=== PATIENT | male | born 1945 | race Caucasian/White ===

== ENCOUNTER → 2020-09-01 11:26 | Outpatient (BNVA) | payer MEDICARE, OTHER, SELFPAY | PROVIDERS: PCP Internal Medicine; Referring Provider Internal Medicine; Visit Provider Nurse Practitioner Family | DX: I48.0 Paroxysmal atrial fibrillation (principal); I13.0 Hypertensive heart and chronic kidney disease with heart failure and stage 1 through stage 4 chronic kidney disease, or unspecified chronic kidney disease; I50.40 Unspecified combined systolic (congestive) and diastolic (congestive) heart failure; N18.9 Chronic kidney disease, unspecified; I49.3 Ventricular premature depolarization; I42.9 Cardiomyopathy, unspecified; J44.9 Chronic obstructive pulmonary disease, unspecified; G89.29 Other chronic pain; M54.9 Dorsalgia, unspecified; Z95.810 Presence of automatic (implantable) cardiac defibrillator; Z79.01 Long term (current) use of anticoagulants; Z79.899 Other long term (current) drug therapy | CPT/HCPCS: 99214 ==

== ENCOUNTER 2020-10-18 09:38 | Outpatient (REF) | payer MEDICARE, OTHER, SELFPAY ==
--- NOTE | 2020-10-18 10:09 | US_ITS ---
EXAMINATION: US ABDOMEN LIMITED CLINICAL INFORMATION: Paroxysmal atrial fibrillation. On amiodarone. COMPARISON: CTA chest 04/27/2019, 10/19/2017. TECHNIQUE: Real-time imaging of the right upper quadrant abdominal viscera. FINDINGS: PANCREAS: The visualized pancreas is normal in size and contour and echogenicity. Portions of the pancreatic head and tail are obscured by bowel gas and not completely imaged. There is no pancreatic ductal distention or retroperitoneal effusion. LIVER: The liver is normal in overall size. The liver contour shows macrolobulation similar to the CT study. There is mild uniform coarsening of the hepatic echotexture. There is a solitary hypoechoic circumscribed nodule left lobe 1.3 cm without associated color flow. Finding not seen with certainty on CT. There is no intrahepatic ductal dilatation. GALLBLADDER: Normal. The gallbladder is physiologically distended without evidence of stones, sludge, polyps, wall thickening or pericholecystic fluid. COMMON BILE DUCT: Mildly enlarged, measuring 1.0 cm in diameter. No visible ductal calculus or wall thickening. RIGHT KIDNEY: Right kidney measures 12.0 cm in length. There is normal renal parenchymal thickness and echogenicity. No hydronephrosis or visible calculi. There is a large simple exophytic cyst from the lower pole measuring 6.8 x 3.7 x 6.1 cm. This is beyond field of view on prior CT studies. There is also a small simple cyst interpolar region measuring under 2 cm. FREE FLUID: None. US/US abdomen limited IMPRESSION: 1. Macrolobulated contour liver with solitary circumscribed hypoechoic nodule left lobe 1.3 cm. 2. Mild common duct enlargement, 1.0 cm. No intrahepatic ductal dilatation. Unremarkable gallbladder. 3. Visualized pancreas unremarkable. Portions head and tail obscured by bowel gas. 4. Large exophytic cyst lower pole right kidney 6.8 x 3.7 x 6.1 cm. Smaller cyst interpolar under 2 cm.
[2020-10-18 11:17] LABS: TSH reflex Free T4 0.31 mIU/mL (0.32-4.0)
[2020-10-18 11:18] LABS: Alanine Aminotransferase 30 U/L (0-40); Anion Gap 14 (12-20); Aspartate Amino Transferase 39 U/L (5-37); Blood Urea Nitrogen 24 mg/dL (9-16); Calcium 8.9 mg/dL (8.4-10.2); Carbon Dioxide 26 mmol/L (22-29); Chloride 105 mmol/L (96-108); Cholesterol 93 mg/dL; Estimated Glomerular Filt Rate 43; Glucose Random 110 mg/dL (60-115); HDL Cholesterol 29 mg/dL; LDL Cholesterol Calculated 40 mg/dl; Potassium 4.3 mmol/l (3.3-5.1); Sodium 141 mmol/L (135-145); Triglycerides 121 mg/dL
[2020-10-18 11:48] LABS: Free T4 (Free Thyroxine) 1.33 ng/dL (0.71-1.85)
== END 2020-10-18 09:39 | disposition home or self-care (01) ==
LOC: HO.US 09:38
PROVIDERS: PCP Internal Medicine; Visit Provider Nurse Practitioner Family
DX: I48.0 Paroxysmal atrial fibrillation (principal); I12.9 Hypertensive chronic kidney disease with stage 1 through stage 4 chronic kidney disease, or unspecified chronic kidney disease; N18.9 Chronic kidney disease, unspecified; E78.5 Hyperlipidemia, unspecified
CPT/HCPCS: 76705; 80048; 80061; 84439; 84443; 84450; 84460

== ENCOUNTER → 2020-11-10 10:25 | Outpatient (BNVA) | payer MEDICARE, OTHER, SELFPAY | PROVIDERS: PCP Internal Medicine; Visit Provider Internal Medicine | DX: I50.42 Chronic combined systolic (congestive) and diastolic (congestive) heart failure (principal); I11.0 Hypertensive heart disease with heart failure; I25.5 Ischemic cardiomyopathy; I49.3 Ventricular premature depolarization; I48.0 Paroxysmal atrial fibrillation; I25.10 Atherosclerotic heart disease of native coronary artery without angina pectoris; I27.82 Chronic pulmonary embolism; E78.5 Hyperlipidemia, unspecified; Z79.899 Other long term (current) drug therapy; Z98.890 Other specified postprocedural states; Z95.818 Presence of other cardiac implants and grafts | CPT/HCPCS: 93005; 99212 ==

== ENCOUNTER 2020-11-20 03:18 | Inpatient (IN) | payer MEDICARE, OTHER, SELFPAY ==
[2020-11-20] VITALS (22 sets, daily range): BP systolic 100–156; BP diastolic 52–91; PULSE 79–91; RESP 12–18; TEMP 36.3–37.1; O2SAT 95–100; BMI 30.9
--- NOTE | 2020-11-20 03:22 | XR_ITS ---
EXAMINATION: CHEST 1 VIEW CLINICAL INFORMATION: Shortness of breath. COMPARISON: 08/10/2020. TECHNIQUE: An AP view of the chest is provided. FINDINGS: The cardiac silhouette is stable. Pacer leads are in unchanged position. Again identified is diffuse interstitial disease bilaterally. There are neither pleural effusions nor pneumothoraces. There are no consolidations. The osseous structures are stable. XR/XR chest 1V IMPRESSION: No acute airspace disease. Stable chronic changes as stated above.
--- NOTE | 2020-11-20 03:22 | ECG_ITS ---
Test Reason : SOB Blood Pressure : / mmHG Vent. Rate : 080 BPM Atrial Rate : 080 BPM P-R Int : 088 ms QRS Dur : 144 ms QT Int : 432 ms P-R-T Axes : 000 237 051 degrees QTc Int : 498 ms AV dual-paced rhythm Abnormal ECG When compared with ECG of 29-NOV-2019 00:23, Premature ventricular complexes are no longer Present Referred By: Renee Nj Electronically Signed By:SERGIO SMALL MD
[2020-11-20 03:46] LABS: Basophils Percent Auto 0.1 % (0-2); Eosinophils Percent Auto 0.1 % (0-4); Hematocrit 37.2 % (42-52); Hemoglobin 11.3 g/dl (14.0-18.0); Imm Gran Abs Auto 0.06 X10*3/uL (0.00-0.03); Imm Gran Pct Auto 0.5 % (0.0-0.4); Lymphocytes Absolute Auto 2.6 X10*3/uL (1.2-4.9); Lymphocytes Percent Auto 20.3 % (20-40); MANUAL DIFF FLAG NO; Mean Corpuscular HGB Conc 30.4 g/dl (31.0-36.0); Mean Corpuscular Hemoglobin 26.5 pg (27.0-33.0); Mean Corpuscular Volume 87.3 fL (80-98); Mean Platelet Volume 10.7 fL (9.4-12.4); Monocytes Absolute Auto 1.1 X10*3/uL (0.1-1.2); Monocytes Percent Auto 8.4 % (2-11); Neutrophils Absolute Auto 8.9 X10*3/uL (2.0-8.3); Neutrophils Percent Auto 70.6 % (45-73); Platelet Count 177 X10*3/uL (160-400); Red Blood Count 4.26 X10*6/uL (4.60-5.80); Red Cell Distribution Width 15.9 % (11.0-16.0); White Blood Count 12.6 X10*3/uL (4.8-10.8)
[2020-11-20 03:56] LABS: INTERNATIONAL NORM RATIO 1.7 (0.9-1.1); Prothrombin Time 20.6 SEC (10.8-13.0)
[2020-11-20 04:13] LABS: Alanine Aminotransferase 79 U/L (0-40); Albumin Level 3.7 g/dL (3.5-5.0); Alkaline Phosphatase 86 U/L (39-117); Anion Gap 18 (12-20); Aspartate Amino Transferase 89 U/L (5-37); Bilirubin Total 0.8 mg/dL (0.0-1.0); Blood Urea Nitrogen 56 mg/dL (9-16); Calcium 7.8 mg/dL (8.4-10.2); Carbon Dioxide 25 mmol/L (22-29); Chloride 103 mmol/L (96-108); Creatinine Clr Calc Pharmacy 34.6; Estimated Glomerular Filt Rate 31; Glucose Random 232 mg/dL (60-115); Potassium 4.9 mmol/l (3.3-5.1); Sodium 141 mmol/L (135-145); Total Protein 6.8 g/dL (6.5-8.0)
[2020-11-20 04:14] LABS: B Type Natriuretic Peptide 2709 pg/mL (<100)
--- NOTE | 2020-11-20 05:10 | PC.NURSE ---
PATIENT BLOOD PRESSURE 107/52, NITRO PASTE REMOVED FROM CHEST AT THIS TIME. PATIENT DENIES CHEST PAIN OR DISCOMFORT. WILL CONTINUE TO MONITOR. MD IS AWARE OF REMOVAL OF NITRO PASTE THAT WAS PLACED WITH EMS BEFORE PATIENTS ARRIVAL TO HOSPITAL.
--- NOTE | 2020-11-20 05:15 | ED.SOB ---
HPI - SOB/Dyspnea General Chief Complaint: Dyspnea Stated Complaint: DIFF BREATHING, ON CPAP Time Seen by Provider: 11/20/20 03:22 Source: patient Mode of arrival: EMS History of Present Illness HPI Narrative: This is a 75-year-old male who has significant past medical history of COPD, CAD, CHF (mixed) who presents with onset of acute shortness of breath worsening over the past couple of days but it became prominent at approximately 11:00 p.m. last night without associated fevers, chills, but patient is having chest discomfort. Patient states that he does not typically get swelling in the lower legs but instead gets it in his abdomen but denies that it has changed in size or that his weight has increased. Patient states that he was just discharged from [facility] on 11/17 and states that he was discharged on an additional 3 days of steroids but denies any use of antibiotics. Patient states he has otherwise been taking his medications as prescribed, does not use any oxygen at home, and has been seen by Dr. Balbuena recently (11/10). Related Data Home Medications Medication Instructions Recorded Confirmed amiodarone 100 mg PO DAILY 11/20/20 11/20/20 apixaban [Eliquis] 5 mg PO BID 11/20/20 11/20/20 ascorbic acid (vitamin C) [Vitamin 1,000 mg PO DAILY 11/20/20 11/20/20 C] aspirin 81 mg PO DAILY 11/20/20 11/20/20 atorvastatin 40 mg PO BEDTIME 11/20/20 11/20/20 carvedilol 6.25 mg PO BID 11/20/20 11/20/20 ergocalciferol (vitamin D2) 2,000 unit PO DAILY 11/20/20 11/20/20 [Vitamin D2] gabapentin 600 mg PO BEDTIME 11/20/20 11/20/20 isosorbide mononitrate 30 mg PO DAILY 11/20/20 11/20/20 levothyroxine 25 mcg PO DAILY 11/20/20 11/20/20 magnesium 500 mg PO BID 11/20/20 11/20/20 sacubitril-valsartan [Entresto] 1 tab PO BID 11/20/20 11/20/20 torsemide 20 mg PO DAILY 11/20/20 11/20/20 Allergies Allergy/AdvReac Type Severity Reaction Status Date / Time bee pollen [BEE STINGS] Allergy Severe ANAPHYLAXIS Verified 11/10/20 10:38 Review of Systems Review of Systems: Pertinent positives and negatives as stated in HPI 10 point review of systems is otherwise negative. 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 Paroxysmal atrial fibrillation PVC (premature ventricular contraction) Surgical History H/O cardiac catheterization (~10/2017) History of ankle surgery History of cardiac pacemaker History of elbow surgery History of eye surgery History of surgery S/P mitral valve clip implantation Family History Family History Father Cancer Mother Cancer Brother Lymph node cancer Skin cancer Sister Diabetes Social History Social History Alcohol intake: never Smoking Status: Never smoker Cigarettes Per Day: 10 Smoked in Last 30 Days: No Use of substances other than those prescribed or required for medical reasons: No Advance Directives: No Advance Directives Information Provided: No Physical Exam Vital Signs: Vital Signs: Last Vital Signs Temp 98.2 F 11/20/20 07:31 Pulse 91 11/20/20 07:31 Resp 16 11/20/20 07:31 BP 131/62 11/20/20 07:31 Pulse Ox 100 11/20/20 07:31 Body Mass Index 30.9 VITAL SIGNS: Reviewed. GENERAL: Well developed, well nourished, in no acute distress. HEAD: Normocephalic/atraumatic, EYES: PERRLA, EOMI intact without pain, no nystagmus/pallor/icterus noted EARS: Ext canals without abnormality, TMs non-bulging and non-erythematous NOSE: Nares patent bilateral OROPHARYNX: posterior pharynx clear NECK: Supple, no adenopathy LUNGS: Normal breath sounds, no rales or wheeze, tachypnea+, SpO2<100> on BiPAP CARDIOVASCULAR: Paced rhythm, no JVD or lower extremity edema. ABDOMEN: Soft, non-tender, non-distended with bowel sounds. No rigidity. No guarding. No palpable masses or hernias noted MUSCULOSKELETAL: No tenderness, deformities, or effusions noted on gross inspection. EXTREMITIES: No cyanosis, clubbing SKIN: Inspection of the skin reveals no rashes, ulcerations NEUROLOGIC: Alert and oriented x 4. Course Course Course Narrative: This is a 75-year-old male with history and clinical presentation most consistent with CHF exacerbation and has improved significantly with BiPAP and placement of nitro paste but doubt primary cardiac ischemia in etiology or pneumonia. -labs, chest x-ray, EKG, COVID testing On review of all investigations despite no evidence pulmonary congestion on chest x-ray review of renal function and mild transaminemia as well as increase in BNP this is most consistent with CHF exacerbation. Patient is titrated off of the BiPAP and will be admitted to [facility]. This case was discussed with the inpatient hospitalist team who is agreeable for admission. Signed out to Dr Castrejon. MDM - SOB/Dyspnea Lab Data Result diagrams: 11/20/20 03:42 11/20/20 03:42 Labs: Lab Results 11/20/20 11/20/20 11/20/20 Range/Units 03:42 03:42 03:42 WBC 12.6 H (4.8-10.8) X10*3/uL RBC 4.26 L (4.60-5.80) X10*6/uL Hgb 11.3 L (14.0-18.0) g/dl Hct 37.2 L (42-52) % MCV 87.3 (80-98) fL MCH 26.5 L (27.0-33.0) pg MCHC 30.4 L (31.0-36.0) g/dl RDW 15.9 (11.0-16.0) % Plt Count 177 (160-400) X10*3/uL MPV 10.7 (9.4-12.4) fL Immature Gran % (Auto) 0.5 H (0.0-0.4) % Neut % (Auto) 70.6 (45-73) % Lymph % (Auto) 20.3 (20-40) % [place] % (Auto) 8.4 (2-11) % Eos % (Auto) 0.1 (0-4) % Baso % (Auto) 0.1 (0-2) % Lymph # (Auto) 2.6 (1.2-4.9) X10*3/uL [place] # (Auto) 1.1 (0.1-1.2) X10*3/uL Eos # (Auto) 0.0 (0.0-0.4) X10*3/uL Baso # (Auto) 0.0 (0.0-0.2) X10*3/uL Abs Immat Gran (auto) 0.06 H (0.00-0.03) X10*3/uL Absolute Neuts (auto) 8.9 H (2.0-8.3) X10*3/uL Absolute Nucleated RBC 0.000 (0.0-0.012) X10*3/uL Nucleated RBC % (auto) 0.0 (0.0-0.2) /100WBC PT (10.8-13.0) SEC INR (0.9-1.1) Sodium 141 (135-145) mmol/L Potassium 4.9 (3.3-5.1) mmol/l Chloride 103 (96-108) mmol/L Carbon Dioxide 25 (22-29) mmol/L Anion Gap 18 (12-20) BUN 56 H D (9-16) mg/dL Creatinine 2.09 H (0.5-1.4) mg/dL Estim Creat Clear Calc 34.6 Estimated GFR 31 Random Glucose 232 H D (60-115) mg/dL Calcium 7.8 L D (8.4-10.2) mg/dL Magnesium 2.9 H (1.6-2.6) mg/dL Total Bilirubin 0.8 (0.0-1.0) mg/dL AST 89 H (5-37) U/L ALT 79 H (0-40) U/L Alkaline Phosphatase 86 (39-117) U/L Troponin I High Sens 29.3 (<3.5-35.0) ng/L B-Natriuretic Peptide 2709 H (<100) pg/mL Total Protein 6.8 (6.5-8.0) g/dL Albumin 3.7 (3.5-5.0) g/dL Coronavirus (PCR) (Negative) Influenza Type A (PCR) (Negative) Influenza Type B (PCR) (Negative) RSV RNA Qual (PCR) (Negative) 11/20/20 11/20/20 Range/Units 03:42 05:50 WBC (4.8-10.8) X10*3/uL RBC (4.60-5.80) X10*6/uL Hgb (14.0-18.0) g/dl Hct (42-52) % MCV (80-98) fL MCH (27.0-33.0) pg MCHC (31.0-36.0) g/dl RDW (11.0-16.0) % Plt Count (160-400) X10*3/uL MPV (9.4-12.4) fL Immature Gran % (Auto) (0.0-0.4) % Neut % (Auto) (45-73) % Lymph % (Auto) (20-40) % [place] % (Auto) (2-11) % Eos % (Auto) (0-4) % Baso % (Auto) (0-2) % Lymph # (Auto) (1.2-4.9) X10*3/uL [place] # (Auto) (0.1-1.2) X10*3/uL Eos # (Auto) (0.0-0.4) X10*3/uL Baso # (Auto) (0.0-0.2) X10*3/uL Abs Immat Gran (auto) (0.00-0.03) X10*3/uL Absolute Neuts (auto) (2.0-8.3) X10*3/uL Absolute Nucleated RBC (0.0-0.012) X10*3/uL Nucleated RBC % (auto) (0.0-0.2) /100WBC PT 20.6 H (10.8-13.0) SEC INR 1.7 H (0.9-1.1) Sodium (135-145) mmol/L Potassium (3.3-5.1) mmol/l Chloride (96-108) mmol/L Carbon Dioxide (22-29) mmol/L Anion Gap (12-20) BUN (9-16) mg/dL Creatinine (0.5-1.4) mg/dL Estim Creat Clear Calc Estimated GFR Random Glucose (60-115) mg/dL Calcium (8.4-10.2) mg/dL Magnesium (1.6-2.6) mg/dL Total Bilirubin (0.0-1.0) mg/dL AST (5-37) U/L ALT (0-40) U/L Alkaline Phosphatase (39-117) U/L Troponin I High Sens (<3.5-35.0) ng/L B-Natriuretic Peptide (<100) pg/mL Total Protein (6.5-8.0) g/dL Albumin (3.5-5.0) g/dL Coronavirus (PCR) NEGATIVE (Negative) Influenza Type A (PCR) NEGATIVE (Negative) Influenza Type B (PCR) NEGATIVE (Negative) RSV RNA Qual (PCR) NEGATIVE (Negative) ECG Data Attestation: I personally reviewed and interpreted this ECG as follows: Prior ECG tracings: available for review (11/10/2020 no acute changes on comparison) Interpretation: Paced rhythm, HR -80, no evidence of acute ischemia on comparison to prior Critical Care Time Critical Care Time Critical Care Time: Yes Total Critical Care Time: 30 Attestation: I personally attest to this time spent taking care of the patient. Discharge Plan Discharge Clinical Impression: YASH (acute kidney injury) CHF exacerbation Qualifiers: Heart failure type: combined systolic and diastolic Qualified Code(s): I50.43 - Acute on chronic combined systolic (congestive) and diastolic (congestive) heart failure Patient Disposition: Admitted As Inpatient
--- NOTE | 2020-11-20 05:26 | PC.NURSE ---
PATIENT CONTINUES TO REMAIN ON THE BIPAP. PATIENT STATING FEELING SLIGHTLY BETTER, DENIES NAUSEA AND VOMITING. AWAITING REEVALUATION FROM PROVIDER.
[2020-11-20 05:42] LABS: Magnesium 2.9 mg/dL (1.6-2.6)
[2020-11-20 05:44] LABS: Troponin-I High Sensitivity 29.3 ng/L (<3.5-35.0)
--- NOTE | 2020-11-20 05:46 | PC.NURSE ---
RESPIRATORY THERAPIST AT BEDSIDE WITH PROVIDER TO TITRATE THE BIPAP PATIENT IS NOW ON 10 / 5 AND 28%. TOLERATING WELL AWAITING COVID TEST RESULTS.
[2020-11-20 06:39] LABS: Influenza A PCR NEGATIVE (Negative); Influenza B PCR NEGATIVE (Negative); Resp Syncy Virus RNA Qual PCR NEGATIVE (Negative); SARS COV2 PCR INHOUSE NEGATIVE (Negative)
--- NOTE | 2020-11-20 07:31 | PC.NURSE ---
pt d/c'd off bipap by resp therapist (dia). pt is now on 02 at 2l/m via n/c. aware.
[2020-11-20 08:40] LABS: Troponin-I High Sensitivity 91.7 ng/L (<3.5-35.0)
--- NOTE | 2020-11-20 11:31 | PC.NURSE ---
[facility]) at bedside, pt aware of plan of care for admission to hosp.
[2020-11-20] MEDS: Albuterol/Iprat 2.5/0.5MG 3 ML AMPUL.NEB INHALE ×3 (11:56→19:46)
--- NOTE | 2020-11-20 12:18 | PM.IMHP ---
History of Present Illness Date of Service: 11/20/20 <YUVAL Ocasio - Last Filed: 11/20/20 12:37> Chief Complaint: Shortness of breath <YUVAL Ocasio Last Filed: 11/20/20 12:37> This is a 75-year-old male with complicated medical history who presented to the emergency department with shortness of breath. Patient was admitted at [facility] from November 15 to November 17 for COPD exacerbation as well as CHF. He reports having worsening shortness of breath starting yesterday evening. This was associated with his baseline cough. He denies any associated fever chills. He was brought to the emergency department on CPAP been changed to BiPAP. BNP was elevated at 2709. His initial troponin was 29.3 this increased to 91.7 on repeat. Patient does report chest pain which started prior to arrival and has been constant since. There is no change with cough or deep inspiration. He was able to be weaned off of BiPAP on to 2 L of supplemental oxygen. <YUVAL Ocasio - Last Filed: 11/20/20 12:37> Review of Systems Review of Systems: Yes all other systems are reviewed and are negative <YUVAL Ocasio - Last Filed: 11/20/20 12:37> Constitutional: Constitutional: Denies chills and Denies fever(s) <YUVAL Ocasio - Last Filed: 11/20/20 12:37> Cardiovascular: Cardiovascular: Reports chest pain, Reports dyspnea and Reports dyspnea on exertion <YUVAL Ocasio - Last Filed: 11/20/20 12:37> Respiratory: Respiratory: Reports cough, Reports dyspnea and Reports dyspnea on exertion <YUVAL Ocasio Last Filed: 11/20/20 12:37> Gastrointestinal: Gastrointestinal: Denies abdominal pain <YUVAL Ocasio - Last Filed: 11/20/20 12:37> [facility] Medical History: Medical History Biventricular implantable 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-defibrillator (ICD) in situ CAD (coronary artery disease) Cardiomyopathy Chronic back pain Chronic pulmonary embolism without acute cor pulmonale CKD (chronic kidney disease) Combined systolic and diastolic heart failure COPD (chronic obstructive pulmonary disease) HLD (hyperlipidemia) HTN (hypertension) Hyperkalemia 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 Paroxysmal atrial fibrillation PVC (premature ventricular contraction) <YUVAL Ocasio - Last Filed: 11/20/20 12:37> Family History: Family History Father Cancer Mother Cancer Brother Lymph node cancer Skin cancer Sister Diabetes <YUVAL Ocasio - Last Filed: 11/20/20 12:37> Surgical History: Surgical History H/O cardiac catheterization (~10/2017) History of ankle surgery History of cardiac pacemaker History of elbow surgery History of eye surgery History of surgery S/P mitral valve clip implantation <YUVAL Ocasio - Last Filed: 11/20/20 12:37> Social History: Social History Household Members: Spouse Housing: House Alcohol intake: never Smoking Status: Former smoker Tobacco Type: Cigarette Cigarettes Per Day: 8 Substance Use Type: Marijuana service: No Current occupational status: disabled <YUVAL Ocasio - Last Filed: 11/20/20 12:37> Meds Allergies/Adverse reactions: Allergies Allergy/AdvReac Type Severity Reaction Status Date / Time bee pollen [BEE STINGS] Allergy Severe ANAPHYLAXIS Verified 11/10/20 10:38 <YUVAL Ocasio - Last Filed: 11/20/20 12:37> Home medications: Home Medications Medication Instructions Recorded Confirmed Type Eliquis 5 mg PO BID 11/20/20 11/20/20 History Entresto 1 tab PO BID 11/20/20 11/20/20 History amiodarone 100 mg PO DAILY 11/20/20 11/20/20 History ascorbic acid (vitamin C) [Vitamin 1,000 mg PO DAILY 11/20/20 11/20/20 History C] aspirin 81 mg PO DAILY 11/20/20 11/20/20 History atorvastatin 40 mg PO BEDTIME 11/20/20 11/20/20 History carvedilol 6.25 mg PO BID 11/20/20 11/20/20 History ergocalciferol (vitamin D2) 2,000 unit PO DAILY 11/20/20 11/20/20 History gabapentin 600 mg PO BEDTIME 11/20/20 11/20/20 History isosorbide mononitrate 30 mg PO DAILY 11/20/20 11/20/20 History levothyroxine 25 mcg PO DAILY 11/20/20 11/20/20 History magnesium 500 mg PO BID 11/20/20 11/20/20 History torsemide 20 mg PO DAILY 11/20/20 11/20/20 History <YUVAL Ocasio Last Filed: 11/20/20 12:37> Physical Exam Vital Signs and Narrative: Vital Signs: Last Vital Signs Temp 97.4 F 11/20/20 09:44 Pulse 88 11/20/20 11:59 Resp 17 11/20/20 09:44 BP 136/91 H 11/20/20 09:44 Pulse Ox 100 11/20/20 09:44 Body Mass Index 30.9 <YUVAL Ocasio - Last Filed: 11/20/20 12:37> Const: Nutritional Appearance: well nourished <YUVAL Ocasio Last Filed: 11/20/20 12:37> Orientation/consciousness: patient oriented x3 <YUVAL Ocasio Last Filed: 11/20/20 12:37> HENMT: Head: Yes normocephalic and Yes atraumatic <YUVAL Ocasio Last Filed: 11/20/20 12:37> Eyes: Sclerae: sclerae normal <YUVAL Ocasio Last Filed: 11/20/20 12:37> Chest: Chest palpation & inspection: normal inspection of the chest <YUVAL Ocasio Last Filed: 11/20/20 12:37> Resp: Effort & Inspection: normal respiratory effort and no respiratory distress <YUVAL cOasio Last Filed: 11/20/20 12:37> Auscultation: wheezes and diminished lung sounds <YUVAL Ocasio Last Filed: 11/20/20 12:37> Cardio: Rate: regular rate <YUVAL Ocasio - Last Filed: 11/20/20 12:37> Rhythm: regular rhythm <YUVAL Ocasio - Last Filed: 11/20/20 12:37> GI: Palpation (GI): Soft to palpation and nontender <YUVAL Ocasio - Last Filed: 11/20/20 12:37> Skin: General skin exam: no rashes or lesions noted <YUVAL Ocasio - Last Filed: 11/20/20 12:37> Neuro: General: patient oriented x3 <YUVAL Ocasio - Last Filed: 11/20/20 12:37> Cranial nerves: Yes CN's II-XII intact bilaterally and Yes Bilaterally intact EOM present <YUVAL Ocasio - Last Filed: 11/20/20 12:37> Extrem: General: Yes normal to inspection <YUVAL Ocasio - Last Filed: 11/20/20 12:37> Results Labs CBC and Chem 7: : 11/22/20 05:56 11/23/20 06:18 <YUVAL Ocasio - Last Filed: 11/20/20 12:37> Labs: Laboratory Results - last 24 hr 11/20/20 11/20/20 11/20/20 03:42 03:42 03:42 MCV 87.3 MCH 26.5 L MCHC 30.4 L RDW 15.9 Plt Count 177 MPV 10.7 Immature Gran % (Auto) 0.5 H Neut % (Auto) 70.6 Lymph % (Auto) 20.3 [place] % (Auto) 8.4 Eos % (Auto) 0.1 Baso % (Auto) 0.1 Lymph # (Auto) 2.6 [place] # (Auto) 1.1 Eos # (Auto) 0.0 Baso # (Auto) 0.0 Abs Immat Gran (auto) 0.06 H Absolute Neuts (auto) 8.9 H Absolute Nucleated RBC 0.000 Nucleated RBC % (auto) 0.0 PT INR Anion Gap 18 Estim Creat Clear Calc 34.6 Estimated GFR 31 Random Glucose 232 H D Calcium 7.8 L D Magnesium 2.9 H Total Bilirubin 0.8 AST 89 H ALT 79 H Alkaline Phosphatase 86 Troponin I High Sens 29.3 B-Natriuretic Peptide 2709 H Total Protein 6.8 Albumin 3.7 Coronavirus (PCR) Influenza Type A (PCR) Influenza Type B (PCR) RSV RNA Qual (PCR) 11/20/20 11/20/20 11/20/20 03:42 05:50 08:00 MCV MCH MCHC RDW Plt Count MPV Immature Gran % (Auto) Neut % (Auto) Lymph % (Auto) [place] % (Auto) Eos % (Auto) Baso % (Auto) Lymph # (Auto) [place] # (Auto) Eos # (Auto) Baso # (Auto) Abs Immat Gran (auto) Absolute Neuts (auto) Absolute Nucleated RBC Nucleated RBC % (auto) PT 20.6 H INR 1.7 H Anion Gap Estim Creat Clear Calc Estimated GFR Random Glucose Calcium Magnesium Total Bilirubin AST ALT Alkaline Phosphatase Troponin I High Sens 91.7 H D B-Natriuretic Peptide Total Protein Albumin Coronavirus (PCR) NEGATIVE Influenza Type A (PCR) NEGATIVE Influenza Type B (PCR) NEGATIVE RSV RNA Qual (PCR) NEGATIVE <YUVAL Ocasio - Last Filed: 11/20/20 12:37> Imaging Radiologist's Impressions: Impressions Chest X-Ray 11/20/20 03:22 IMPRESSION: No acute airspace disease. Stable chronic changes as stated above. <YUVAL Ocasio - Last Filed: 11/20/20 12:37> Assessment and Plan (1) COPD (chronic obstructive pulmonary disease): Status: Acute <YUVAL Ocasio - Last Filed: 11/20/20 12:37> This is a 75-year-old male with history of cardiomyopathy, heart failure, atrial fibrillation on Eliquis, mitral regurgitation status post mitral clip with placement of CardioMEMS, CKD among others who presented with shortness of breath found to have COPD exacerbation Acute respiratory failure with hypoxia Able to be weaned from BiPAP to 2 L supplemental oxygen Secondary to acute COPD exacerbation -continue supplemental oxygen as needed -IV Solu-Medrol -scheduled bronchodilator therapy Elevated cardiac enzymes Troponin increased from 29.3 to 91.7 Atypical chest pain EKG with paced rhythm History of underlying CAD. Admitted to telemetry for close monitoring. Will continue to trend cardiac enzymes Cardiology consult Continue aspirin, statin, beta-darwin, isosorbide HFrEF BNP elevated although does not clinically appear to be in CHF Continue home torsemide, Entresto Cardiology consult Hypothyroidism Continue Synthroid Atrial fibrillation Continue amiodarone Continue anticoagulation with Eliquis CKD Creatinine appears to be near baseline Chronic pain No longer on opiates Frequent complaints of pain. DVT prophylaxis-Loren This case was discussed with Dr. Yen <YUVAL Ocasio - Last Filed: 11/20/20 12:37>
--- NOTE | 2020-11-20 12:39 | PM.IMHP ---
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 Paroxysmal atrial fibrillation PVC (premature ventricular contraction) Family History Father Cancer Mother Cancer Brother Lymph node cancer Skin cancer Sister Diabetes Surgical History H/O cardiac catheterization (~10/2017) History of ankle surgery History of cardiac pacemaker History of elbow surgery History of eye surgery History of surgery S/P mitral valve clip implantation Social History Alcohol intake: never Smoking Status: Never smoker Cigarettes Per Day: 10 Smoked in Last 30 Days: No Use of substances other than those prescribed or required for medical reasons: No Advance Directives: No Advance Directives Information Provided: No Meds Allergies Allergy/AdvReac Type Severity Reaction Status Date / Time bee pollen [BEE STINGS] Allergy Severe ANAPHYLAXIS Verified 11/10/20 10:38 Home Medications Medication Instructions Recorded Confirmed Type amiodarone 100 mg PO DAILY 11/20/20 11/20/20 History apixaban [Eliquis] 5 mg PO BID 11/20/20 11/20/20 History ascorbic acid (vitamin C) [Vitamin 1,000 mg PO DAILY 11/20/20 11/20/20 History C] aspirin 81 mg PO DAILY 11/20/20 11/20/20 History atorvastatin 40 mg PO BEDTIME 11/20/20 11/20/20 History carvedilol 6.25 mg PO BID 11/20/20 11/20/20 History ergocalciferol (vitamin D2) 2,000 unit PO DAILY 11/20/20 11/20/20 History [Vitamin D2] gabapentin 600 mg PO BEDTIME 11/20/20 11/20/20 History isosorbide mononitrate 30 mg PO DAILY 11/20/20 11/20/20 History levothyroxine 25 mcg PO DAILY 11/20/20 11/20/20 History magnesium 500 mg PO BID 11/20/20 11/20/20 History sacubitril-valsartan [Entresto] 1 tab PO BID 11/20/20 11/20/20 History torsemide 20 mg PO DAILY 11/20/20 11/20/20 History Physical Exam Vital Signs and Narrative: Vital Signs: Last Vital Signs Temp 97.4 F 11/20/20 09:44 Pulse 88 11/20/20 11:59 Resp 17 11/20/20 09:44 BP 136/91 H 11/20/20 09:44 Pulse Ox 100 11/20/20 09:44 Body Mass Index 30.9 Results Labs CBC and Chem 7: 11/20/20 03:42 11/20/20 03:42 Labs: Laboratory Results - last 24 hr 11/20/20 11/20/20 11/20/20 03:42 03:42 03:42 MCV 87.3 MCH 26.5 L MCHC 30.4 L RDW 15.9 Plt Count 177 MPV 10.7 Immature Gran % (Auto) 0.5 H Neut % (Auto) 70.6 Lymph % (Auto) 20.3 [place] % (Auto) 8.4 Eos % (Auto) 0.1 Baso % (Auto) 0.1 Lymph # (Auto) 2.6 [place] # (Auto) 1.1 Eos # (Auto) 0.0 Baso # (Auto) 0.0 Abs Immat Gran (auto) 0.06 H Absolute Neuts (auto) 8.9 H Absolute Nucleated RBC 0.000 Nucleated RBC % (auto) 0.0 PT INR Anion Gap 18 Estim Creat Clear Calc 34.6 Estimated GFR 31 Random Glucose 232 H D Calcium 7.8 L D Magnesium 2.9 H Total Bilirubin 0.8 AST 89 H ALT 79 H Alkaline Phosphatase 86 Troponin I High Sens 29.3 B-Natriuretic Peptide 2709 H Total Protein 6.8 Albumin 3.7 Coronavirus (PCR) Influenza Type A (PCR) Influenza Type B (PCR) RSV RNA Qual (PCR) 11/20/20 11/20/20 11/20/20 03:42 05:50 08:00 MCV MCH MCHC RDW Plt Count MPV Immature Gran % (Auto) Neut % (Auto) Lymph % (Auto) [place] % (Auto) Eos % (Auto) Baso % (Auto) Lymph # (Auto) [place] # (Auto) Eos # (Auto) Baso # (Auto) Abs Immat Gran (auto) Absolute Neuts (auto) Absolute Nucleated RBC Nucleated RBC % (auto) PT 20.6 H INR 1.7 H Anion Gap Estim Creat Clear Calc Estimated GFR Random Glucose Calcium Magnesium Total Bilirubin AST ALT Alkaline Phosphatase Troponin I High Sens 91.7 H D B-Natriuretic Peptide Total Protein Albumin Coronavirus (PCR) NEGATIVE Influenza Type A (PCR) NEGATIVE Influenza Type B (PCR) NEGATIVE RSV RNA Qual (PCR) NEGATIVE Imaging Radiologist's Impressions: Impressions Chest X-Ray 11/20/20 03:22 IMPRESSION: No acute airspace disease. Stable chronic changes as stated above.
--- NOTE | 2020-11-20 12:45 | PC.NURSE ---
PT C/O 09/04 GEN BODY PAIN, OFFERED TYLENOL 650MG AND REFUSED.
--- NOTE | 2020-11-20 15:53 | PC.NURSE ---
call to [facility] for report.
--- NOTE | 2020-11-20 16:58 | PM.EVENT ---
Event Note Date of Service: 11/20/20 Event Note: the patient was seen and evaluated with YUVAL Johnson. I agree with her note, assessment and plan with the following. In summary, a 75 years old male with PMH of CAD, CMP on ICD, COPD, AFib, chronic back pain among others who presented to the hospital with difficulty breathing. He reports that he woke up during the night to go the bathroom and noticed significant shortness of breath and lethargy with no reported chest pain, fever or chills. In the emergency he was placed on BiPAP for hypoxic respiratory failure at time of presentation. Admitted for further evaluation and treatment. Acute hypoxic respiratory failure COPD exacerbation O2 supplement as needed, to wean down as tolerated Continue IV steroids Bronchodilator nebulizers Elevated troponin Atypical chest pain with no EKG changes to suggest ACS Continue to trend troponin Cardiology consult Rest of evaluations by PA note.
[2020-11-20 18:03] LABS: Troponin-I High Sensitivity 67.2 ng/L (<3.5-35.0)
[2020-11-20] MEDS: 0.9 % Sodium Chloride Flush 3 ML SYRINGE IVFLUSH ×2 (18:31→23:50)
[2020-11-20 20:03] LABS: B Type Natriuretic Peptide 2819 pg/mL (<100)
[2020-11-20] MEDS: Atorvastatin Calcium 40 MG TABLET PO (21:35)
[2020-11-20] MEDS: Magnesium Oxide 400 MG TABLET PO (21:35)
[2020-11-20] MEDS: Apixaban 5 MG TABLET PO (21:35)
[2020-11-20] MEDS: carvediloL 6.25 MG TABLET PO (21:35)
[2020-11-20] MEDS: Gabapentin 600 MG TABLET PO (21:36)
[2020-11-20] MEDS: Sacubitril/Valsartan 24/26 1 TAB TABLET PO (21:36)
[2020-11-21] VITALS (9 sets, daily range): BP systolic 99–119; BP diastolic 51–84; PULSE 80–88; RESP 18–20; TEMP 36.3–37; O2SAT 95–99
[2020-11-21 07:00] LABS: Hematocrit 30.9 % (42-52); Hemoglobin 9.8 g/dl (14.0-18.0); Imm Gran Abs Auto 0.01 X10*3/uL (0.00-0.03); Imm Gran Pct Auto 0.3 % (0.0-0.4); Lymphocytes Absolute Auto 0.3 X10*3/uL (1.2-4.9); Lymphocytes Percent Auto 8.4 % (20-40); MANUAL DIFF FLAG SCAN; Mean Corpuscular HGB Conc 31.7 g/dl (31.0-36.0); Mean Corpuscular Hemoglobin 26.4 pg (27.0-33.0); Mean Corpuscular Volume 83.3 fL (80-98); Mean Platelet Volume 10.4 fL (9.4-12.4); Monocytes Absolute Auto 0.1 X10*3/uL (0.1-1.2); Monocytes Percent Auto 1.7 % (2-11); Neutrophils Absolute Auto 3.1 X10*3/uL (2.0-8.3); Neutrophils Percent Auto 89.6 % (45-73); Red Blood Count 3.71 X10*6/uL (4.60-5.80); Red Cell Distribution Width 15.4 % (11.0-16.0); SCAN SMEAR FLAG 1; White Blood Count 3.5 X10*3/uL (4.8-10.8)
[2020-11-21 07:27] LABS: Anion Gap 12 (12-20); Blood Urea Nitrogen 50 mg/dL (9-16); Calcium 7.9 mg/dL (8.4-10.2); Carbon Dioxide 28 mmol/L (22-29); Chloride 105 mmol/L (96-108); Creatinine Clr Calc Pharmacy 43.3; Estimated Glomerular Filt Rate 41; Glucose Random 163 mg/dL (60-115); Potassium 4.7 mmol/l (3.3-5.1); Sodium 140 mmol/L (135-145)
[2020-11-21 07:47] LABS: Platelet Count 78 X10*3/uL (160-400); SLIDE REVIEW VERIFIED
[2020-11-21] MEDS: Albuterol/Iprat 2.5/0.5MG 3 ML AMPUL.NEB INHALE ×4 (07:58→20:49)
[2020-11-21] MEDS: Furosemide 40 MG/4 ML VIAL IVPUSH (09:22)
[2020-11-21] MEDS: Magnesium Oxide 400 MG TABLET PO ×2 (09:22→21:31)
[2020-11-21] MEDS: Apixaban 5 MG TABLET PO ×2 (09:22→21:30)
[2020-11-21] MEDS: Levothyroxine Sodium 25 MCG TABLET PO (09:22)
[2020-11-21] MEDS: Amiodarone HCL 200 MG TABLET 100 MG PO (09:22)
[2020-11-21] MEDS: Sacubitril/Valsartan 24/26 1 TAB TABLET PO ×2 (09:22→21:31)
[2020-11-21] MEDS: Ascorbic Acid 500 MG TABLET 1000 MG PO (09:22)
[2020-11-21] MEDS: Aspirin 81 MG TAB.CHEW PO (09:22)
[2020-11-21] MEDS: Isosorbide Mononitrate 30 MG TAB.ER.24H PO (09:22)
[2020-11-21] MEDS: carvediloL 6.25 MG TABLET PO ×2 (09:22→21:31)
[2020-11-21] MEDS: 0.9 % Sodium Chloride Flush 3 ML SYRINGE IVFLUSH ×3 (09:22→21:32)
--- NOTE | 2020-11-21 11:55 | P.CONCA_ITS ---
History of Present Illness History of Present Illness Date of Service: 11/21/20 Consult reason: congestive heart failure Chief complaint: copd exacerbation Narrative: Thank you for inviting us in consult on Neri for shortness of breath and CHF exacerbation. He is extremely complicated cardiac patient with prior history of ischemic cardiomyopathy status post biventricular ICD in place, recurrent heart failure syndrome status post placement of CardioMEMS as well as MitraClip procedure for significant mitral regurgitation setting of ischemic cardiomyopathy. Despite that he has had recurrent trouble with shortness of breath. He also has underlying COPD which complicates his management. He has paroxysmal atrial fibrillation on anticoagulation. He also has history of chronic kidney disease, hypertension chronic pain. Present the hospital, recently discharge from [facility] with admission with cord and cord COPD exacerbation heart failure management. He was discharged on Lisa Rocio. He said he did well on [place] Rocio night and then following day [place] at night he started developing shortness of breath again. He used his nebulizer but symptoms did get better and therefore he came to the emergency room. In emergency room noted to have significantly elevated BNP, he did not notice any other signs of CHF with weight gain belly distension. However he has been diuresed. He feels better, not sure if the eyes and nose are well charted. He has been taking oral diuretic therapy at home and this is been adjusted based on the findings of the CardioMEMS. This is been very closely followed out ever over the last few days there has been no data from that perspective due to the holidays. He denies any increased salt intake. Denies any recent outside meals. No excessive water intake. No palpitations. He says most recently his torsemide dose is been 10 mg alternating with 20 mg. Currently getting IV Lasix 40 mg. Hemodynamically stable Review of Systems Constitutional: Constitutional: Reports no additional constitutional complaints Eyes: Eyes: Reports no additional eye complaints Cardiovascular: Cardiovascular: Denies chest pain, Denies palpitations, Reports dyspnea, Reports dyspnea on exertion and Reports orthopnea Respiratory: Respiratory: Denies cough, Reports dyspnea, Reports dyspnea on exertion and Denies wheezing Gastrointestinal: Gastrointestinal: Reports no additional gastrointestinal complaints Genitourinary: Genitourinary: Reports no additional male genitourinary complaints Musculoskeletal: Musculoskeletal: Reports no additional musculoskeletal complaints Neurologic: Reports system reviewed and no additional complaints, except as documented Psychiatric: Psychiatric: Reports no additional psychiatric complaints Endocrine: Endocrine: Reports no additional endocrine complaints and Denies palpitations Allergic/Immunologic: Allergic/Immunologic: Denies wheezing COUNTS INCLUDE 234 BEDS AT THE [facility] Past Medical History Medical History Biventricular implantable 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-defibrillator (ICD) in situ CAD (coronary artery disease) Cardiomyopathy Chronic back pain Chronic pulmonary embolism without acute cor pulmonale CKD (chronic kidney disease) Combined systolic and diastolic heart failure COPD (chronic obstructive pulmonary disease) HLD (hyperlipidemia) HTN (hypertension) Hyperkalemia ICD (implantable 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-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 Paroxysmal atrial fibrillation PVC (premature ventricular contraction) Family History Family History Father Cancer Mother Cancer Brother Lymph node cancer Skin cancer Sister Diabetes Surgical History Surgical History H/O cardiac catheterization (~10/2017) History of ankle surgery History of cardiac pacemaker History of elbow surgery History of eye surgery History of surgery S/P mitral valve clip implantation Social History Social History Household Members: Spouse Housing: House Alcohol intake: never Smoking Status: Former smoker Tobacco Type: Cigarette Cigarettes Per Day: 8 Smoked in Last 30 Days: Yes Patient Interested in Nicotine Replacement: No Use of substances other than those prescribed or required for medical reasons: No Substance Use Type: Marijuana Substance Use Frequency: Daily Last Used Substance: Weeks (ago) Currently Displaying Signs/Symptoms of Drug Intoxication Withdrawal: No Have you been hit, kicked, punched, or otherwise hurt by someone within the past year? If so, by whom?: No Do you feel safe in your current relationship?: Yes Is there a partner from a previous relationship who is making you feel unsafe now?: No Are you made to feel afraid or neglected: No Sabianism Healthcare Practices: [facility] Advance Directives: No Advance Directives Information Provided: No Do you have thoughts of harming others: None Do you have a plan to hurt others: No Plan Recently lost weight without trying: No Meds Allergies Allergy/AdvReac Type Severity Reaction Status Date / Time bee pollen [BEE STINGS] Allergy Severe ANAPHYLAXIS Verified 11/10/20 10:38 Home Medications Medication Instructions Recorded Confirmed Type amiodarone 100 mg PO DAILY 11/20/20 11/20/20 History apixaban [Eliquis] 5 mg PO BID 11/20/20 11/20/20 History ascorbic acid (vitamin C) [Vitamin 1,000 mg PO DAILY 11/20/20 11/20/20 History C] aspirin 81 mg PO DAILY 11/20/20 11/20/20 History atorvastatin 40 mg PO BEDTIME 11/20/20 11/20/20 History carvedilol 6.25 mg PO BID 11/20/20 11/20/20 History ergocalciferol (vitamin D2) 2,000 unit PO DAILY 11/20/20 11/20/20 History [Vitamin D2] gabapentin 600 mg PO BEDTIME 11/20/20 11/20/20 History isosorbide mononitrate 30 mg PO DAILY 11/20/20 11/20/20 History levothyroxine 25 mcg PO DAILY 11/20/20 11/20/20 History magnesium 500 mg PO BID 11/20/20 11/20/20 History sacubitril-valsartan [Entresto] 1 tab PO BID 11/20/20 11/20/20 History torsemide 20 mg PO DAILY 11/20/20 11/20/20 History Physical Exam Vital Signs: Vital Signs: Last Vital Signs Temp 97.3 F 11/21/20 08:00 Pulse 84 11/21/20 11:25 Resp 18 11/21/20 08:00 BP 117/63 11/21/20 08:00 Pulse Ox 97 11/21/20 08:00 Body Mass Index 30.9 Const: General: no acute distress, alert, awake and anxious Nutritional Appearance: overweight Orientation/consciousness: patient oriented x3 Limitations: no limitations HENMT: Head: Yes normocephalic and Yes atraumatic Neck: Neck: Yes trachea midline, Yes supple and Yes JVD Resp: Effort & Inspection: normal respiratory effort Auscultation: clear to auscultation bilaterally Cardio: Palpation: abnormal PMI displaced PMI Rate: regular rate Rhythm: regular rhythm Heart sounds: S1 normal heart sound present, S2 normal heart sound present and Murmur heart sound present systolic GI: Auscultation: normal bowel sounds Skin: General skin exam: no rashes or lesions noted and ecchymosis Neuro: General: patient oriented x3 and no focal motor deficits Extrem: General: Yes pedal edema Psych: Appearance: grossly normal Affect: Anxious affect present Results Labs and Meds Result diagrams: 11/21/20 05:36 11/21/20 05:36 Lab results: Laboratory Results - last 24 hr 11/20/20 11/20/20 11/21/20 17:08 19:22 05:36 WBC 3.5 L RBC 3.71 L Hgb 9.8 L Hct 30.9 L MCV 83.3 MCH 26.4 L MCHC 31.7 RDW 15.4 Plt Count 78 L D MPV 10.4 Immature Gran % (Auto) 0.3 Neut % (Auto) 89.6 H Lymph % (Auto) 8.4 L [place] % (Auto) 1.7 L Eos % (Auto) 0.0 Baso % (Auto) 0.0 Lymph # (Auto) 0.3 L [place] # (Auto) 0.1 Eos # (Auto) 0.0 Baso # (Auto) 0.0 Abs Immat Gran (auto) 0.01 Absolute Neuts (auto) 3.1 Absolute Nucleated RBC 0.000 Nucleated RBC % (auto) 0.0 Smear Tech's Comments VERIFIED Sodium Potassium Chloride Carbon Dioxide Anion Gap BUN Creatinine Estim Creat Clear Calc Estimated GFR Random Glucose Calcium Troponin I High Sens 67.2 H B-Natriuretic Peptide 2819 H 11/21/20 05:36 WBC RBC Hgb Hct MCV MCH MCHC RDW Plt Count MPV Immature Gran % (Auto) Neut % (Auto) Lymph % (Auto) [place] % (Auto) Eos % (Auto) Baso % (Auto) Lymph # (Auto) [place] # (Auto) Eos # (Auto) Baso # (Auto) Abs Immat Gran (auto) Absolute Neuts (auto) Absolute Nucleated RBC Nucleated RBC % (auto) Smear Tech's Comments Sodium 140 Potassium 4.7 Chloride 105 Carbon Dioxide 28 Anion Gap 12 BUN 50 H Creatinine 1.67 H Estim Creat Clear Calc 43.3 Estimated GFR 41 Random Glucose 163 H Calcium 7.9 L Troponin I High Sens B-Natriuretic Peptide EKG shows AV dual paced rhythm. BNP is significantly elevated at 2819. Dry BNP in the mid 500 range Creatinine is improved since yesterday Assessment and Plan (1) CHF exacerbation: Qualifiers: Heart failure type: combined systolic and diastolic Qualified Code(s): I50.43 - Acute on chronic combined systolic (congestive) and diastolic (congestive) heart failure Status: Acute Extremely complicated elderly man with prior history of ischemic cardiomyopathy with multiple therapies including cardiac resynchronization therapy as well as MitraClip placement as well as placement of CardioMEMS device. Despite that he had recent hospitalization with what appears to be CHF exacerbation to [facility] very was diuresed and also treated for COPD exacerbation. Daily to presents to [facility] with worsening shortness of breath. BNP significantly elevated compared to his baseline. Clinically does not appear to be markedly fluid overloaded with there is JVD as well as YASH which has improved diuresis suggestive cardiorenal syndrome. Extremely complicated patient. Continue IV diuresis. Strict intake and output chart needs to be pursued. His CardioMEMS parameters are not available due to the holidays. Continue his neurohormonal modulation, see below. His pacemaker seems to be functioning okay. Avoidance of salt loading as outpatient was discussed. Goals of therapy were discussed including avoidance of recurrent hospitalizations related to his CHF. Will discuss with Dr. 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 It has improved with diuresis. Continue IV diuresis. Continue to trend BMP and BNP. (3) Ischemic cardiomyopathy: Status: Acute Severe ischemic cardiomyopathy. Last LV ejection fraction 41% after MitraClip as well as cardiac resynchronization therapy. Continue neurohormonal modulation carvedilol and Entresto therapy. Continue maximize as tolerated. Consider addition of mineral corticoid inhibitor therapy. (4) ICD (implantable 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-defibrillator) in place: Problem details: Medtronic Bi V ICD in place. Remote monitoring in use Status: Acute ICD function seems to be appropriate. Greater than 45 minutes was spent in managing his complex care. Will follow with the patient.
--- NOTE | 2020-11-21 15:22 | HO.PM.IMPN ---
Subjective Subjective Date of Service: 11/21/20 Interval History: the patient was seen and evaluated this morning Laying in bed, feels comfortable, still having wheezes and mild Cough Significantly elevated BNP Denies any fever, chills or shortness of breath No reported other overnight events. Systemic review: No fever, chills or weakness No chest pain, palpitation No shortness of breath or coughing No abdominal pain, nausea or vomiting No urinary symptoms No any rash or wounds Physical Exam Vital Signs: Vital Signs: Last Vital Signs Temp 98.1 F 11/21/20 12:00 Pulse 81 11/21/20 15:14 Resp 20 11/21/20 12:00 BP 106/57 L 11/21/20 12:00 Pulse Ox 98 11/21/20 12:00 Body Mass Index 30.9 Constitutional : Alert, oriented, not in distress Neck : Normal inspection, Supple Cardiovascular : RRR, S1 S2, no lower extremity edema, elevated JVD Respiratory : Decreased bilateral air entry, basal fine crackles, decreased air entry bilaterally with expiratory wheezes Gastrointestinal: soft, lax, Normal bowel sounds, Non tender Skin : Warm/Dry, No rash Neurological : Alert & oriented x3, No focal deficit Objective Data Current Medications Generic Name Dose Route Start Last Admin Trade Name Freq PRN Reason Stop Dose Admin Acetaminophen 650 mg 11/20/20 12:17 Acetaminophen 325 Mg Tablet PO Q6H PRN Pain, Mild (Pain Scale 1-3) Albuterol/Ipratropium 3 ml 11/20/20 12:00 11/21/20 15:11 Albuterol/Iprat 2.5/0.5mg 3 Ml Ampul.Neb INHALE 3 ml RQ4H WHILE AWAKE GALLO Administration Amiodarone HCl 100 mg 11/21/20 09:00 11/21/20 09:22 Amiodarone Hcl 200 Mg Tablet PO 100 mg DAILY GALLO Administration Apixaban 5 mg 11/20/20 21:00 11/21/20 09:22 Apixaban 5 Mg Tablet PO 5 mg BID GALLO Administration Ascorbic Acid 1,000 mg 11/21/20 09:00 11/21/20 09:22 Ascorbic Acid 500 Mg Tablet PO 1,000 mg DAILY GALLO Administration Aspirin 81 mg 11/21/20 09:00 11/21/20 09:22 Aspirin 81 Mg Tab.Chew PO 81 mg DAILY GALLO Administration Atorvastatin Calcium 40 mg 11/20/20 21:00 11/20/20 21:35 Atorvastatin Calcium 40 Mg Tablet PO 40 mg BEDTIME GALLO Administration Carvedilol 6.25 mg 11/20/20 21:00 11/21/20 09:22 Carvedilol 6.25 Mg Tablet PO 6.25 mg BID GALLO Administration Protocol Docusate Sodium 100 mg 11/20/20 17:27 Docusate Sodium 100 Mg Capsule PO DAILY PRN Constipation Furosemide 40 mg 11/21/20 09:00 11/21/20 09:22 Furosemide 40 Mg/4 Ml Vial IVPUSH 40 mg DAILY GALLO Administration Protocol Gabapentin 600 mg 11/20/20 21:00 11/20/20 21:36 Gabapentin 600 Mg Tablet PO 600 mg BEDTIME GALLO Administration Isosorbide Mononitrate 30 mg 11/21/20 09:00 11/21/20 09:22 Isosorbide Mononitrate 30 Mg Tab.Er.24h PO 30 mg DAILY GALLO Administration Protocol Levothyroxine Sodium 25 mcg 11/21/20 09:00 11/21/20 09:22 Levothyroxine Sodium 25 Mcg Tablet PO 25 mcg DAILY GALLO Administration Magnesium Oxide 400 mg 11/20/20 21:00 11/21/20 09:22 Magnesium Oxide 400 Mg Tablet PO 400 mg BID GALLO Administration Methylprednisolone Sodium Succinate 40 mg 11/21/20 09:00 11/21/20 09:23 Methylprednisolone Sod Succ/Pf 40 Mg/Ml Vial IVPUSH 40 mg DAILY GALLO Administration Sacubitril/Valsartan 1 tab 11/20/20 21:00 11/21/20 09:22 Sacubitril/Valsartan 1 Tab Tablet PO 1 tab BID GALLO Administration Protocol Sodium Chloride 3 ml 11/20/20 17:27 11/21/20 09:22 0.9 % Sodium Chloride Flush 3 Ml Syringe IVFLUSH 3 ml QSHIFT [facility] Administration Labs CBC & Chem 7: 11/21/20 05:36 11/21/20 05:36 Assessment and Plan (1) COPD (chronic obstructive pulmonary disease): Status: Acute (2) CHF exacerbation: Status: Acute (3) MANGO (acute kidney injury): Status: Acute Assessment and Plan: This is a 75-year-old male with history of cardiomyopathy, heart failure, atrial fibrillation on Eliquis, mitral regurgitation status post mitral clip with placement of CardioMEMS, CKD among others who presented with shortness of breath found to have COPD exacerbation Acute respiratory failure with hypoxia Secondary to CHF and COPD exacerbation Required BiPAP in ED, Wean off oxygen as tolerated To treat underlying problems Acute CHF exacerbation Continue IV Lasix Last echo showing EF of 41% next Lyme Continue neurohormonal medications of carvedilol and Entresto Cardiology input appreciated acute COPD exacerbation continue supplemental oxygen as needed IV Solu-Medrol scheduled bronchodilator therapy Cardiorenal syndrome, Mango I Creatinine at presentation worsened baseline of around 2 Improved with diuresis Monitor intake and output follow BMP Elevated cardiac enzymes Troponin increased from 29.3 to 91.7 Atypical chest pain EKG with paced rhythm Demand mediated injury Continue aspirin, statin, beta-darwin, isosorbide Hypothyroidism Continue Synthroid Atrial fibrillation Continue amiodarone Continue anticoagulation with Eliquis CKD Creatinine appears to be near baseline Chronic pain No longer on opiates Frequent complaints of pain. DVT prophylaxis. Eliquis
--- NOTE | 2020-11-21 15:50 | ECG_ITS ---
Test Reason : CHESTPAIN Blood Pressure : / mmHG Vent. Rate : 084 BPM Atrial Rate : 083 BPM P-R Int : 000 ms QRS Dur : 142 ms QT Int : 452 ms P-R-T Axes : 000 215 081 degrees QTc Int : 534 ms Ventricular paced rhythm Uncertain atrial rhythm Inferior infarct , age undetermined Abnormal ECG When compared with ECG of 20-NOV-2020 03:45, Premature ventricular complexes are now Present Referred By: Mitch Yen Electronically Signed By:NICOLAS GUTIERREZ
--- NOTE | 2020-11-21 15:59 | MHC.CM.PN ---
PT REPORTS HE LIVES AT HOME WITH HIS AND IS MOSTLY INDEPENDENT WITH CARE HOWEVER HAS MULTIPLE MEDICAL ISSUES THEREFORE HIS HELPS WHEN NEEDED. PT REPORTS RECENTLY HE HAS HAD TO USE HIS WHEELCHAIR BUT WHEN FEELING WELL HE ONLY USES A CANE IN THE HOUSE AND A WALKER OUTDOORS. PT REPORTS HE IS ACTIVE WITH [facility]. PT CONFIRMS HIS PCP IS KAYLEE ARGUELLO. 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 PT REPORTS HE WAS ON AN EXTREMELY HIGH DOSE AND NOW IS ON NOTHING. PT REPORTS UNDERSTANDING THAT THIS IS AN ISSUE HE WILL HAVE TO DISCUSS WITH THE DOCTORS OFFICE HIMSELF. CURRENT DC PLAN IS HOME WITH RESUMPTION OF [facility] PT WILL SELF ARRANGE TRANSPORT
[2020-11-21] MEDS: Atorvastatin Calcium 40 MG TABLET PO (21:30)
[2020-11-21] MEDS: Gabapentin 600 MG TABLET PO (21:31)
[2020-11-22] VITALS (12 sets, daily range): BP systolic 94–140; BP diastolic 53–78; PULSE 78–88; RESP 18–20; TEMP 36.2–37.2; O2SAT 81–98; BMI 30.9
[2020-11-22 07:06] LABS: Hemoglobin 10.5 g/dl (14.0-18.0); Mean Corpuscular HGB Conc 31.8 g/dl (31.0-36.0); Mean Corpuscular Hemoglobin 26.4 pg (27.0-33.0); Mean Corpuscular Volume 83.1 fL (80-98); Mean Platelet Volume 10.4 fL (9.4-12.4); Platelet Count 105 X10*3/uL (160-400); Red Blood Count 3.97 X10*6/uL (4.60-5.80); Red Cell Distribution Width 15.4 % (11.0-16.0); White Blood Count 9.2 X10*3/uL (4.8-10.8)
[2020-11-22 07:23] LABS: Anion Gap 13 (12-20); Blood Urea Nitrogen 49 mg/dL (9-16); Calcium 8.2 mg/dL (8.4-10.2); Carbon Dioxide 27 mmol/L (22-29); Chloride 105 mmol/L (96-108); Creatinine Clr Calc Pharmacy 52.1; Estimated Glomerular Filt Rate 50; Glucose Random 122 mg/dL (60-115); Potassium 4.6 mmol/l (3.3-5.1); Sodium 140 mmol/L (135-145)
[2020-11-22 07:27] LABS: B Type Natriuretic Peptide 994 pg/mL (<100)
[2020-11-22] MEDS: Albuterol/Iprat 2.5/0.5MG 3 ML AMPUL.NEB INHALE ×4 (07:43→20:01)
[2020-11-22] MEDS: 0.9 % Sodium Chloride Flush 3 ML SYRINGE IVFLUSH ×2 (07:57→17:06)
[2020-11-22] MEDS: Isosorbide Mononitrate 30 MG TAB.ER.24H PO (09:59)
[2020-11-22] MEDS: carvediloL 6.25 MG TABLET PO ×2 (09:59→21:13)
[2020-11-22] MEDS: Ascorbic Acid 500 MG TABLET 1000 MG PO (09:59)
[2020-11-22] MEDS: Magnesium Oxide 400 MG TABLET PO ×2 (09:59→21:13)
[2020-11-22] MEDS: Aspirin 81 MG TAB.CHEW PO (09:59)
[2020-11-22] MEDS: Apixaban 5 MG TABLET PO ×2 (09:59→21:12)
[2020-11-22] MEDS: Levothyroxine Sodium 25 MCG TABLET PO (09:59)
[2020-11-22] MEDS: Furosemide 40 MG/4 ML VIAL IVPUSH (10:00)
[2020-11-22] MEDS: Sacubitril/Valsartan 24/26 1 TAB TABLET PO ×2 (10:00→21:14)
[2020-11-22] MEDS: Amiodarone HCL 200 MG TABLET 100 MG PO (10:00)
--- NOTE | 2020-11-22 10:09 | MHC.CM.PN ---
The goal for dc is for Patient to return home with resumption of [facility].Per MD discussion this morning, Patient is not yet medically cleared for dc (still receiving IV Lasix and IV Solu-Medrol). CM will continue to follow for dc planning and the possible need to adjust the dc plan.
--- NOTE | 2020-11-22 10:21 | P.PNCA_ITS ---
Subjective Subjective Date of Service: 11/22/20 Interval history: Still has shortness of breath but slightly better than before. Highly emotional because of not getting pain medications. Review of Systems Review of Systems Yes all other systems are reviewed and are negative Cardiovascular: Reports as per HPI, Reports no additional cardiovascular complaints, Denies acrocyanosis, Denies cool extremities, Denies painful fingertips, Denies chest pain, Denies chest pain at rest, Denies diaphoresis, Denies syncope, Denies irregular heart rhythm, Denies claudication, Denies leg edema, Denies lightheadedness, Denies palpitations and Reports dyspnea Respiratory: Reports dyspnea Reports system reviewed and no additional complaints, except as documented and Denies syncope Endocrine: Denies palpitations Physical Exam Vital Signs: Last Vital Signs Temp 97.2 F 11/22/20 08:00 Pulse 81 11/22/20 08:00 Resp 20 11/22/20 08:00 BP 140/78 H 11/22/20 08:00 Pulse Ox 98 11/22/20 08:00 Body Mass Index 30.9 Const General: cooperative, comfortable and no acute distress Orientation/consciousness: patient oriented x3 [facility] Other: Unremarkable Neck Neck: Yes normal visual inspection Chest Chest palpation & inspection: normal inspection of the chest Resp Auscultation: clear to auscultation bilaterally, no crackles and wheezes Cardio Jugular venous distension: no JVD Palpation: normal PMI Heart sounds: S1 normal heart sound present, S2 normal heart sound present, no gallops, no murmurs and no rubs GI Palpation (GI): Soft to palpation Back/Spine/Pelvis Other: unremarkable Skin General skin exam: no rashes or lesions noted Neuro General: patient oriented x3 Extrem General: Yes edema (trace edema) Psych Mental Status: mental status grossly normal Results Labs and Meds Result diagrams: 11/22/20 05:56 11/22/20 05:56 Lab results: Laboratory Results - last 24 hr 11/22/20 11/22/20 11/22/20 05:56 05:56 05:56 WBC 9.2 RBC 3.97 L Hgb 10.5 L Hct 33.0 L MCV 83.1 MCH 26.4 L MCHC 31.8 RDW 15.4 Plt Count 105 L D MPV 10.4 Absolute Nucleated RBC 0.000 Nucleated RBC % (auto) 0.0 Sodium 140 Potassium 4.6 Chloride 105 Carbon Dioxide 27 Anion Gap 13 BUN 49 H Creatinine 1.39 Estim Creat Clear Calc 52.1 Estimated GFR 50 Random Glucose 122 H Calcium 8.2 L B-Natriuretic Peptide 994 H Progress Note: A&P Assessment and plan (1) Acute on chronic systolic and diastolic heart failure, NYHA class 3: Status: Acute (2) Ischemic cardiomyopathy: Status: Acute (3) COPD (chronic obstructive pulmonary disease): Status: Acute (4) ICD (implantable 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-defibrillator) in place: Problem details: Medtronic Bi V ICD in place. Remote monitoring in use Status: Acute (5) CKD (chronic kidney disease): Problem details: chronic kidney disease with creatinine average 1.8 to 2. Status: Acute (6) PVC (premature ventricular contraction): Status: Acute (7) [employer] current use of amiodarone: Status: Acute Assessment and Plan: Fairly complex patient with multiple issues including stable coronary disease, ischemic cardiomyopathy, frequent PVCs, biventricular ICD placement, COPD, CardioMEMS in place, admitted for shortness of breath. CardioMEMS data reviewed. On the 17 of November, there was a spike in CardioMEMS readings and PA systolic was almost reaching 60 mm Hg. Mean PA was about 40 mm Hg. Suspect exacerbation of heart failure but he could also have some COPD playing a role. , CardioMEMS was interrogated at that point in time, he was rather thought to be dry. Hence holding diuretic might have precipitated increase in pulmonary venous congestion and the current hospitalization. Another day of IV diuretics is reasonable. Concurrent treatment for COPD. We will follow. Fall Risk Details Current Medications: Current Medications Generic Name Dose Route Start Last Admin Trade Name Freq PRN Reason Stop Dose Admin Acetaminophen 650 mg 11/20/20 12:17 Acetaminophen 325 Mg Tablet PO Q6H PRN Pain, Mild (Pain Scale 1-3) Albuterol/Ipratropium 3 ml 11/20/20 12:00 11/22/20 07:43 Albuterol/Iprat 2.5/0.5mg 3 Ml Ampul.Neb INHALE 3 ml RQ4H WHILE AWAKE GALLO Administration Amiodarone HCl 100 mg 11/21/20 09:00 11/21/20 09:22 Amiodarone Hcl 200 Mg Tablet PO 100 mg DAILY GALLO Administration Apixaban 5 mg 11/20/20 21:00 11/21/20 21:30 Apixaban 5 Mg Tablet PO 5 mg BID GALLO Administration Ascorbic Acid 1,000 mg 11/21/20 09:00 11/21/20 09:22 Ascorbic Acid 500 Mg Tablet PO 1,000 mg DAILY GALLO Administration Aspirin 81 mg 11/21/20 09:00 11/21/20 09:22 Aspirin 81 Mg Tab.Chew PO 81 mg DAILY GALLO Administration Atorvastatin Calcium 40 mg 11/20/20 21:00 11/21/20 21:30 Atorvastatin Calcium 40 Mg Tablet PO 40 mg BEDTIME GALLO Administration Carvedilol 6.25 mg 11/20/20 21:00 11/21/20 21:31 Carvedilol 6.25 Mg Tablet PO 6.25 mg BID GALLO Administration Protocol Docusate Sodium 100 mg 11/20/20 17:27 Docusate Sodium 100 Mg Capsule PO DAILY PRN Constipation Furosemide 40 mg 11/21/20 09:00 11/21/20 09:22 Furosemide 40 Mg/4 Ml Vial IVPUSH 40 mg DAILY GALLO Administration Protocol Gabapentin 600 mg 11/20/20 21:00 11/21/20 21:31 Gabapentin 600 Mg Tablet PO 600 mg BEDTIME GALLO Administration Isosorbide Mononitrate 30 mg 11/21/20 09:00 11/21/20 09:22 Isosorbide Mononitrate 30 Mg Tab.Er.24h PO 30 mg DAILY GALLO Administration Protocol Levothyroxine Sodium 25 mcg 11/21/20 09:00 11/21/20 09:22 Levothyroxine Sodium 25 Mcg Tablet PO 25 mcg DAILY GALLO Administration Magnesium Oxide 400 mg 11/20/20 21:00 11/21/20 21:31 Magnesium Oxide 400 Mg Tablet PO 400 mg BID GALLO Administration Prednisone 40 mg 11/23/20 09:00 Prednisone 20 Mg Tablet PO DAILY GALLO Sacubitril/Valsartan 1 tab 11/20/20 21:00 11/21/20 21:31 Sacubitril/Valsartan 1 Tab Tablet PO 1 tab BID GALLO Administration Protocol Sodium Chloride 3 ml 11/20/20 17:27 11/22/20 07:57 0.9 % Sodium Chloride Flush 3 Ml Syringe IVFLUSH 3 ml QSHIFT GALLO Administration Time Spent With Patient Time: Total time spent is greater than 50% in coordination of care (as documented) at patient's floor/unit and/or counseling patient: Time with patient: 15 - 24 minutes
--- NOTE | 2020-11-22 13:49 | P.PNIM_ITS ---
Subjective Subjective Date of Service: 11/22/20 Interval History: the patient was seen and evaluated this morning Laying in bed, very restless and upset Denies any fever, chills or chest pain Reports dyspnea on exertion and wheezing No reported other overnight events. Systemic review: No fever, chills or weakness No chest pain, palpitation Dyspnea on exertion and wheezing No abdominal pain, nausea or vomiting No urinary symptoms No any rash or wounds Physical Exam Vital Signs: Vital Signs: Last Vital Signs Temp 97.2 F 11/22/20 11:35 Pulse 80 11/22/20 11:35 Resp 20 11/22/20 11:35 BP 109/59 L 11/22/20 11:35 Pulse Ox 96 11/22/20 11:35 Body Mass Index 30.9 Constitutional : Alert, oriented, not in distress Neck : Normal inspection, Supple Cardiovascular : RRR, S1 S2, trace lower extremity edema Respiratory : Decreased bilateral air entry, bilateral rhonchi and wheezing Gastrointestinal: soft, lax, Normal bowel sounds, Non tender Skin : Warm/Dry, No rash Neurological : Alert & oriented x3, anxious and restless, No focal deficit Objective Data Current Medications Generic Name Dose Route Start Last Admin Trade Name Freq PRN Reason Stop Dose Admin Acetaminophen 650 mg 11/20/20 12:17 Acetaminophen 325 Mg Tablet PO Q6H PRN Pain, Mild (Pain Scale 1-3) Albuterol/Ipratropium 3 ml 11/20/20 12:00 11/22/20 11:25 Albuterol/Iprat 2.5/0.5mg 3 Ml Ampul.Neb INHALE 3 ml RQ4H WHILE AWAKE GALLO Administration Amiodarone HCl 200 mg 11/23/20 09:00 Amiodarone Hcl 200 Mg Tablet PO DAILY GALLO Apixaban 5 mg 11/20/20 21:00 11/22/20 09:59 Apixaban 5 Mg Tablet PO 5 mg BID GALLO Administration Ascorbic Acid 1,000 mg 11/21/20 09:00 11/22/20 09:59 Ascorbic Acid 500 Mg Tablet PO 1,000 mg DAILY GALLO Administration Aspirin 81 mg 11/21/20 09:00 11/22/20 09:59 Aspirin 81 Mg Tab.Chew PO 81 mg DAILY GALLO Administration Atorvastatin Calcium 40 mg 11/20/20 21:00 11/21/20 21:30 Atorvastatin Calcium 40 Mg Tablet PO 40 mg BEDTIME GALLO Administration Carvedilol 6.25 mg 11/20/20 21:00 11/22/20 09:59 Carvedilol 6.25 Mg Tablet PO 6.25 mg BID GALLO Administration Protocol Docusate Sodium 100 mg 11/20/20 17:27 Docusate Sodium 100 Mg Capsule PO DAILY PRN Constipation Furosemide 40 mg 11/21/20 09:00 11/22/20 10:00 Furosemide 40 Mg/4 Ml Vial IVPUSH 40 mg DAILY GALLO Administration Protocol Gabapentin 600 mg 11/20/20 21:00 11/21/20 21:31 Gabapentin 600 Mg Tablet PO 600 mg BEDTIME GALLO Administration Isosorbide Mononitrate 30 mg 11/21/20 09:00 11/22/20 09:59 Isosorbide Mononitrate 30 Mg Tab.Er.24h PO 30 mg DAILY GALLO Administration Protocol Levothyroxine Sodium 25 mcg 11/21/20 09:00 11/22/20 09:59 Levothyroxine Sodium 25 Mcg Tablet PO 25 mcg DAILY GALLO Administration Magnesium Oxide 400 mg 11/20/20 21:00 11/22/20 09:59 Magnesium Oxide 400 Mg Tablet PO 400 mg BID GALLO Administration Prednisone 40 mg 11/23/20 09:00 Prednisone 20 Mg Tablet PO DAILY GALLO Sacubitril/Valsartan 1 tab 11/20/20 21:00 11/22/20 10:00 Sacubitril/Valsartan 1 Tab Tablet PO 1 tab BID GALLO Administration Protocol Sodium Chloride 3 ml 11/20/20 17:27 11/22/20 07:57 0.9 % Sodium Chloride Flush 3 Ml Syringe IVFLUSH 3 ml QSHIFT [facility] Administration Labs CBC & Chem 7: 11/22/20 05:56 11/22/20 05:56 Assessment and Plan (1) COPD (chronic obstructive pulmonary disease): Status: Acute (2) CHF exacerbation: Status: Acute (3) MANGO (acute kidney injury): Status: Acute Assessment and Plan: This is a 75-year-old male with history of cardiomyopathy, heart failure, atrial fibrillation on Eliquis, mitral regurgitation status post mitral clip with placement of CardioMEMS, CKD among others who presented with shortness of breath found to have COPD exacerbation Acute respiratory failure with hypoxia Secondary to CHF and COPD exacerbation Required BiPAP in ED, Wean off oxygen as tolerated To treat underlying problems Acute CHF exacerbation Continue IV Lasix Last echo showing EF of 41% BNP decreased from 1999- Continue neurohormonal medications of carvedilol and Entresto Cardiology input appreciated acute COPD exacerbation continue supplemental oxygen as needed IV Solu-Medrol scheduled bronchodilator therapy Cardiorenal syndrome, Mango I Creatinine at presentation worsened baseline of around 2 Improved with diuresis Monitor intake and output follow BMP Elevated cardiac enzymes Troponin increased from 29.3 to 91.7 Atypical chest pain EKG with paced rhythm Demand mediated injury Continue aspirin, statin, beta-darwin, isosorbide Hypothyroidism Continue Synthroid Atrial fibrillation Continue amiodarone Continue anticoagulation with Eliquis CKD Creatinine appears to be near baseline Chronic pain No longer on opiates Frequent complaints of pain. DVT prophylaxis. Eliquis
[2020-11-22 18:20] LABS: B Type Natriuretic Peptide 796 pg/mL (<100)
[2020-11-22] MEDS: Atorvastatin Calcium 40 MG TABLET PO (21:10)
[2020-11-22] MEDS: Gabapentin 600 MG TABLET PO (21:14)
[2020-11-23] VITALS (10 sets, daily range): BP systolic 97–138; BP diastolic 64–79; PULSE 80–93; RESP 18; TEMP 36.6–37; O2SAT 94–100
[2020-11-23] MEDS: 0.9 % Sodium Chloride Flush 3 ML SYRINGE IVFLUSH ×3 (00:25→14:33)
[2020-11-23 07:17] LABS: Anion Gap 9 (12-20); Blood Urea Nitrogen 45 mg/dL (9-16); Calcium 7.9 mg/dL (8.4-10.2); Carbon Dioxide 31 mmol/L (22-29); Chloride 104 mmol/L (96-108); Creatinine Clr Calc Pharmacy 43.9; Estimated Glomerular Filt Rate 41; Glucose Random 98 mg/dL (60-115); Potassium 4.4 mmol/l (3.3-5.1); Sodium 140 mmol/L (135-145)
[2020-11-23] MEDS: Albuterol/Iprat 2.5/0.5MG 3 ML AMPUL.NEB INHALE ×3 (08:10→15:17)
--- NOTE | 2020-11-23 08:54 | P.CDIC_ITS ---
CDI Concurrent Query Service Date: 11/23/20 Documentation Clarification: Please clarify if you are treating a proba ble/suspected/likely or confirmed: Specifics: Acute on chronic kidney disease Stage 1-5 or other Please specify if known Provider Response: Other Other Diagnosis: Mariel on CKD PLEASE DO NOT DELETE/MODIFY EXISTING CONTENT Additional information is needed in order to code to the highest accuracy and appropriate Severity of Illness (SOI). Please clarify the information noted below in your progress notes and discharge summary. Risk Factors/Clinical Indicators/Treatments Cardiorenal syndrome, creatinine at presentation worsening, baseline around 2. Improved with diuresis. CKD - appears to be at baseline. CR. 2.09 1.67 Gfr 31 41 Bun 56 50 CDS: Falguni Yi CCS, CDIS Contact Number: [phone] Please Review the information above and exercise your independent professional judgment in responding to the query. If you concur, pleas document in the PROGRESS NOTES and DISCHARGE SUMMARY. If you do not agree with the query, please document in the query above. THIS QUERY IS PART OF THE PERMANENT MEDICAL RECORD
[2020-11-23] MEDS: Magnesium Oxide 400 MG TABLET PO (09:44)
[2020-11-23] MEDS: Apixaban 5 MG TABLET PO (09:44)
[2020-11-23] MEDS: Amiodarone HCL 200 MG TABLET PO (09:44)
[2020-11-23] MEDS: carvediloL 6.25 MG TABLET PO (09:45)
[2020-11-23] MEDS: Ascorbic Acid 500 MG TABLET 1000 MG PO (09:45)
[2020-11-23] MEDS: predniSONE 20 MG TABLET 40 MG PO (09:45)
[2020-11-23] MEDS: Aspirin 81 MG TAB.CHEW PO (09:45)
[2020-11-23] MEDS: Isosorbide Mononitrate 30 MG TAB.ER.24H PO (09:45)
[2020-11-23] MEDS: Sacubitril/Valsartan 24/26 1 TAB TABLET PO (09:45)
[2020-11-23] MEDS: Levothyroxine Sodium 25 MCG TABLET PO (09:46)
--- NOTE | 2020-11-23 09:59 | P.PNCA_ITS ---
Subjective Subjective Date of Service: 11/23/20 Interval history: He states that he is feeling better. Shortness of breath seems improved. Review of Systems Review of Systems Yes all other systems are reviewed and are negative Cardiovascular: Reports as per HPI, Reports no additional cardiovascular complaints, Denies Abdominal Cramping after Meds, Denies Abdominal Distension, Denies acrocyanosis, Denies chest pain, Denies chest pain at rest, Denies chest pain with activity, Denies epigastric discomfort, Denies syncope, Denies leg edema, Denies lightheadedness, Denies Loss of Consciousness, Denies radiating jaw, neck or arm pain, Reports dyspnea and Reports dyspnea on exertion Respiratory: Reports dyspnea and Reports dyspnea on exertion Reports system reviewed and no additional complaints, except as documented and Denies syncope Physical Exam Vital Signs: Last Vital Signs Temp 97.8 F 11/23/20 07:18 Pulse 83 11/23/20 09:45 Resp 18 11/23/20 07:18 BP 138/79 11/23/20 09:45 Pulse Ox 97 11/23/20 07:18 Body Mass Index 30.9 Const General: cooperative, comfortable and no acute distress Orientation/consciousness: patient oriented x3 [facility] Other: Unremarkable Neck Neck: Yes normal visual inspection Chest Chest palpation & inspection: normal inspection of the chest Resp Auscultation: clear to auscultation bilaterally, no crackles and wheezes Cardio Jugular venous distension: no JVD Palpation: normal PMI Heart sounds: S1 normal heart sound present, S2 normal heart sound present, no gallops, no murmurs and no rubs GI Palpation (GI): Soft to palpation Back/Spine/Pelvis Other: unremarkable Skin General skin exam: no rashes or lesions noted Neuro General: patient oriented x3 Extrem General: Yes edema (trace edema) Psych Mental Status: mental status grossly normal Results Labs and Meds Result diagrams: 11/22/20 05:56 11/23/20 06:18 Lab results: Laboratory Results - last 24 hr 11/22/20 11/23/20 17:50 06:18 Sodium 140 Potassium 4.4 Chloride 104 Carbon Dioxide 31 H Anion Gap 9 L BUN 45 H Creatinine 1.65 H Estim Creat Clear Calc 43.9 Estimated GFR 41 Random Glucose 98 Calcium 7.9 L B-Natriuretic Peptide 796 H Progress Note: A&P Assessment and plan (1) Acute on chronic systolic and diastolic heart failure, NYHA class 3: Status: Acute (2) Ischemic cardiomyopathy: Status: Acute (3) COPD (chronic obstructive pulmonary disease): Status: Acute (4) ICD (implantable 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-defibrillator) in place: Problem details: Medtronic Bi V ICD in place. Remote monitoring in use Status: Acute (5) CKD (chronic kidney disease): Problem details: chronic kidney disease with creatinine average 1.8 to 2. Status: Acute (6) PVC (premature ventricular contraction): Status: Acute (7) [facility] current use of amiodarone: Status: Acute Assessment and Plan: Fairly complex patient with multiple issues including stable coronary disease, ischemic cardiomyopathy, frequent PVCs, biventricular ICD placement, COPD, CardioMEMS in place, admitted for shortness of breath. CardioMEMS data reviewed. On the 17 of November, there was a spike in CardioMEMS readings and PA systolic was almost reaching 60 mm Hg. Mean PA was about 40 mm Hg. However, yesterday's readings showed a PA diastolic of only 10 mm Hg. Hence could have been heart failure that has been diuresed versus multifactorial shortness of breath rate to some combination of heart failure and COPD as well. He seems much improved than admission. Can go back on usual torsemide that he takes at home. Evaluate for home nebulizers and oxygen. Fall Risk Details Current Medications: Current Medications Generic Name Dose Route Start Last Admin Trade Name Freq PRN Reason Stop Dose Admin Acetaminophen 650 mg 11/20/20 12:17 Acetaminophen 325 Mg Tablet PO Q6H PRN Pain, Mild (Pain Scale 1-3) Albuterol/Ipratropium 3 ml 11/20/20 12:00 11/23/20 08:10 Albuterol/Iprat 2.5/0.5mg 3 Ml Ampul.Neb INHALE 3 ml RQ4H WHILE AWAKE GALLO Administration Amiodarone HCl 200 mg 11/23/20 09:00 11/23/20 09:44 Amiodarone Hcl 200 Mg Tablet PO 200 mg DAILY GALLO Administration Apixaban 5 mg 11/20/20 21:00 11/23/20 09:44 Apixaban 5 Mg Tablet PO 5 mg BID GALLO Administration Ascorbic Acid 1,000 mg 11/21/20 09:00 11/23/20 09:45 Ascorbic Acid 500 Mg Tablet PO 1,000 mg DAILY GALLO Administration Aspirin 81 mg 11/21/20 09:00 11/23/20 09:45 Aspirin 81 Mg Tab.Chew PO 81 mg DAILY GALLO Administration Atorvastatin Calcium 40 mg 11/20/20 21:00 11/22/20 21:10 Atorvastatin Calcium 40 Mg Tablet PO 40 mg BEDTIME GALLO Administration Carvedilol 6.25 mg 11/20/20 21:00 11/23/20 09:45 Carvedilol 6.25 Mg Tablet PO 6.25 mg BID GALLO Administration Protocol Docusate Sodium 100 mg 11/20/20 17:27 Docusate Sodium 100 Mg Capsule PO DAILY PRN Constipation Gabapentin 600 mg 11/20/20 21:00 11/22/20 21:14 Gabapentin 600 Mg Tablet PO 600 mg BEDTIME GALLO Administration Isosorbide Mononitrate 30 mg 11/21/20 09:00 11/23/20 09:45 Isosorbide Mononitrate 30 Mg Tab.Er.24h PO 30 mg DAILY GALLO Administration Protocol Levothyroxine Sodium 25 mcg 11/21/20 09:00 11/23/20 09:46 Levothyroxine Sodium 25 Mcg Tablet PO 25 mcg DAILY GALLO Administration Magnesium Oxide 400 mg 11/20/20 21:00 11/23/20 09:44 Magnesium Oxide 400 Mg Tablet PO 400 mg BID GALLO Administration Prednisone 40 mg 11/23/20 09:00 11/23/20 09:45 Prednisone 20 Mg Tablet PO 40 mg DAILY GALLO Administration Sacubitril/Valsartan 1 tab 11/20/20 21:00 11/23/20 09:45 Sacubitril/Valsartan 1 Tab Tablet PO 1 tab BID GALLO Administration Protocol Sodium Chloride 3 ml 11/20/20 17:27 11/23/20 09:44 0.9 % Sodium Chloride Flush 3 Ml Syringe IVFLUSH 3 ml QSHIFT [facility] Administration Time Spent With Patient Time: Total time spent is greater than 50% in coordination of care (as documented) at patient's floor/unit and/or counseling patient: Time with patient: 15 - 24 minutes
--- NOTE | 2020-11-23 14:50 | P.DS_ITS ---
DS: Providers Provider Date of admission: 11/20/20 12:17 Primary care physician: Unknown Physician Consults: 11/20/20 17:27 Consult to Cardiology Routine Consulting Provider: Renny Parsons Reason for consultation: h/o chf, elevated trop Has provider been notified: No 11/23/20 12:49 Consult to Psychiatry Routine Consulting Provider: Carline Robertson Reason for consultation: Narcotic problem, eval for Suboxone need DS: Diagnosis Discharge Diagnosis (1) Acute on chronic systolic and diastolic heart failure, NYHA class 3: Status: Acute (2) Ischemic cardiomyopathy: Status: Acute (3) COPD (chronic obstructive pulmonary disease): Status: Acute (4) ICD (implantable 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-defibrillator) in place: Status: Acute (5) CKD (chronic kidney disease): Status: Acute (6) PVC (premature ventricular contraction): Status: Acute (7) intermission coordinator current use of amiodarone: Status: Acute DS: Medications Discharge Medications Home Medications: Home Medications Medication Instructions Recorded Confirmed Eliquis 5 mg PO BID 11/20/20 11/20/20 Entresto 1 tab PO BID 11/20/20 11/20/20 amiodarone 100 mg PO DAILY 11/20/20 11/20/20 ascorbic acid (vitamin C) [Vitamin 1,000 mg PO DAILY 11/20/20 11/20/20 C] aspirin 81 mg PO DAILY 11/20/20 11/20/20 atorvastatin 40 mg PO BEDTIME 11/20/20 11/20/20 carvedilol 6.25 mg PO BID 11/20/20 11/20/20 ergocalciferol (vitamin D2) 2,000 unit PO DAILY 11/20/20 11/20/20 gabapentin 600 mg PO BEDTIME 11/20/20 11/20/20 isosorbide mononitrate 30 mg PO DAILY 11/20/20 11/20/20 levothyroxine 25 mcg PO DAILY 11/20/20 11/20/20 magnesium 500 mg PO BID 11/20/20 11/20/20 torsemide 20 mg PO DAILY 11/20/20 11/20/20 Previous Rx's Medication Instructions Recorded fluticasone propion-salmeterol 1 inh INHALATION BID #1 ea 11/23/20 [AirDuo RespiClick] ipratropium-albuterol 3 ml INHALATION RQ4H WHILE AWAKE 11/23/20 PRN #120 ml nebulizers #1 ea 11/23/20 prednisone 40 mg PO DAILY 3 Days #6 tab 11/23/20 DS: Summary Hospital Course Hospital Course: Admission note HPI This is a 75-year-old male with complicated medical history who presented to the emergency department with shortness of breath. Patient was admitted at [facility] from November 15 to November 17 for COPD exacerbation as well as CHF. He reports having worsening shortness of breath starting yesterday evening. This was associated with his baseline cough. He denies any associated fever chills. He was brought to the emergency department on CPAP been changed to BiPAP. BNP was elevated at 2709. His initial troponin was 29.3 this increased to 91.7 on repeat. Patient does report chest pain which started prior to arrival and has been constant since. There is no change with cough or deep inspiration. He was able to be weaned off of BiPAP on to 2 L of supplemental ox ygen. Hospital course The patient was admitted to the hospital for treatment of acute hypoxic respiratory failure. He was treated mainly for CHF exacerbation with IV Lasix and evaluation by Cardiology who recommended to continue his home dosed torsemide. BNP drop significantly from 2800 to almost 800 during the hospital stay. Was noted to have acute kidney injury on top of CKD as a result of c ardiorenal syndrome which improved with diuresis as creatinine improved down to 1.4. He was also treated for COPD exacerbation primarily with BiPAP in the emergency then with oxygen supplement, steroids and nebulizers during the hospital stay with fair response as he was satting in early 90s on room air. He was evaluated for home oxygen need and his O2 sat dropped significantly to mid 80s with am bulation. Plan to discharge home with a nebulizer. To continue prednisone and to start new inhaler. Evaluated by Physical therapy who recommended home PT. To finish 5 days of steroids To start bronchodilator inhalers Prescribed nebulizer and bronchodilators To follow up with Cardiology as outpatient Time Spent with Patient Time attestation: Total time spent providing and/or coordinating discharge services: Physical Exam Vital Signs: Vital Signs: Last Vital Signs Temp 98.3 F 11/23/20 10:57 Pulse 93 11/23/20 11:54 Resp 18 11/23/20 10:57 BP 107/66 11/23/20 10:57 Pulse Ox 96 11/23/20 10:57 Body Mass Index 30.9 Constitutional : Alert, oriented, not in distress Neck : Normal inspection, Supple Cardiovascular : RRR, S1 S2, trace lower extremity edema Respiratory : Improved bilateral air entry, no basal crackles, very scattered fine wheezes Gastrointestinal: soft, lax, Normal bowel sounds, Non tender Skin : Warm/Dry, No rash Neurological : Alert & oriented x3, anxious and restless, No focal deficit DS: Data Data Completed and Pending Labs on day of discharge: 11/20/20 03:22 ECG 12 lead EKG Stat EKG Documentation DIRECTED XR chest 1V Stat 11/20/20 03:42 B Type Natriuretic Peptide Stat Complete Blood Count Auto Diff Stat Comprehensive Met. Panel Stat Magnesium Stat Prothrombin Time INR Stat Troponin-I High Sensitivity Stat 11/20/20 05:25 Add Laboratory Test Stat Add Laboratory Test Stat 11/20/20 05:50 SARS-CoV2/FLU/RSV Stat 11/20/20 08:00 Troponin-I High Sensitivity Stat 11/20/20 12:00 methylPREDNISolone Sod Succ/PF [SOLU-MedroL] 40 mg IVPUSH Q12H 11/20/20 12:02 Transfer Order Routine 11/20/20 12:13 Code Status Routine 11/20/20 Lunch Low Sodium Diet 11/20/20 17:08 Troponin-I High Sensitivity Routine 11/20/20 18:00 RT Smoking Initial Cessation ONCE 11/20/20 19:22 B Type Natriuretic Peptide Routine 11/21/20 05:36 Basic Metabolic Panel DAILY@0600 Complete Blood Count Auto Diff DAILY@0600 SLIDE REVIEW Routine 11/21/20 09:00 Amiodarone HCL [Cordarone] 100 mg PO DAILY Furosemide [Lasix] 40 mg IVPUSH DAILY Torsemide [Demadex] 20 mg PO DAILY methylPREDNISolone Sod Succ/PF [SOLU-MedroL] 40 mg IVPUSH DAILY 11/21/20 15:50 ECG 12 lead EKG Stat EKG Documentation DIRECTED 11/22/20 05:56 B Type Natriuretic Peptide Routine Basic Metabolic Panel DAILY@0600 Complete Blood Count no Diff DAILY@0600 11/22/20 17:50 B Type Natriuretic Peptide Routine 11/23/20 06:18 Basic Metabolic Panel DAILY@0600 Laboratory Last Values WBC 9.2 X10*3/uL (4.8-10.8) 11/22/20 05:56 RBC 3.97 X10*6/uL (4.60-5.80) L 11/22/20 05:56 Hgb 10.5 g/dl (14.0-18.0) L 11/22/20 05:56 Hct 33.0 % (42-52) L 11/22/20 05:56 MCV 83.1 fL (80-98) 11/22/20 05:56 MCH 26.4 pg (27.0-33.0) L 11/22/20 05:56 MCHC 31.8 g/dl (31.0-36.0) 11/22/20 05:56 RDW 15.4 % (11.0-16.0) 11/22/20 05:56 Plt Count 105 X10*3/uL (160-400) L D 11/22/20 05:56 MPV 10.4 fL (9.4-12.4) 11/22/20 05:56 Immature Gran % (Auto) 0.3 % (0.0-0.4) 11/21/20 05:36 Neut % (Auto) 89.6 % (45-73) H 11/21/20 05:36 Lymph % (Auto) 8.4 % (20-40) L 11/21/20 05:36 Cameron % (Auto) 1.7 % (2-11) L 11/21/20 05:36 Eos % (Auto) 0.0 % (0-4) 11/21/20 05:36 Baso % (Auto) 0.0 % (0-2) 11/21/20 05:36 Lymph # (Auto) 0.3 X10*3/uL (1.2-4.9) L 11/21/20 05:36 Cameron # (Auto) 0.1 X10*3/uL (0.1-1.2) 11/21/20 05:36 Eos # (Auto) 0.0 X10*3/uL (0.0-0.4) 11/21/20 05:36 Baso # (Auto) 0.0 X10*3/uL (0.0-0.2) 11/21/20 05:36 Abs Immat Gran (auto) 0.01 X10*3/uL (0.00-0.03) 11/21/20 05:36 Absolute Neuts (auto) 3.1 X10*3/uL (2.0-8.3) 11/21/20 05:36 Absolute Nucleated RBC 0.000 X10*3/uL (0.0-0.012) 11/22/20 05:56 Nucleated RBC % (auto) 0.0 /100WBC (0.0-0.2) 11/22/20 05:56 Smear Tech's Comments VERIFIED 11/21/20 05:36 PT 20.6 SEC (10.8-13.0) H 11/20/20 03:42 INR 1.7 (0.9-1.1) H 11/20/20 03:42 Sodium 140 mmol/L (135-145) 11/23/20 06:18 Potassium 4.4 mmol/l (3.3-5.1) 11/23/20 06:18 Chloride 104 mmol/L (96-108) 11/23/20 06:18 Carbon Dioxide 31 mmol/L (22-29) H 11/23/20 06:18 Anion Gap 9 (12-20) L 11/23/20 06:18 BUN 45 mg/dL (9-16) H 11/23/20 06:18 Creatinine 1.65 mg/dL (0.5-1.4) H 11/23/20 06:18 Estim Creat Clear Calc 43.9 11/23/20 06:18 Estimated GFR 41 11/23/20 06:18 Random Glucose 98 mg/dL (60-115) 11/23/20 06:18 Calcium 7.9 mg/dL (8.4-10.2) L 11/23/20 06:18 Magnesium 2.9 mg/dL (1.6-2.6) H 11/20/20 03:42 Total Bilirubin 0.8 mg/dL (0.0-1.0) 11/20/20 03:42 AST 89 U/L (5-37) H 11/20/20 03:42 ALT 79 U/L (0-40) H 11/20/20 03:42 Alkaline Phosphatase 86 U/L (39-117) 11/20/20 03:42 Troponin I High Sens 67.2 ng/L (<3.5-35.0) H 11/20/20 17:08 B-Natriuretic Peptide 796 pg/mL (<100) H 11/22/20 17:50 Total Protein 6.8 g/dL (6.5-8.0) 11/20/20 03:42 Albumin 3.7 g/dL (3.5-5.0) 11/20/20 03:42 Coronavirus (PCR) NEGATIVE (Negative) 11/20/20 05:50 Influenza Type A (PCR) NEGATIVE (Negative) 11/20/20 05:50 Influenza Type B (PCR) NEGATIVE (Negative) 11/20/20 05:50 RSV RNA Qual (PCR) NEGATIVE (Negative) 11/20/20 05:50 Discharge Plan Discharge Patient Disposition: Home Health Service Referrals: [facility] [Outside] Wilder Murphy MD [Physician] - 1 Week (11/30/2020 @3:00pm. Please call and reschedule if you can't keep this appointment.) Discharge Medications: New (DME) nebulizers Misc See Rx Instructions .ROUTE .MEDSUPPLY Qty: 1 RF: 0 ipratropium-albuterol 0.5 mg-3 mg(2.5 mg base)/3 mL Solution For Nebulization 3 ml inhalation RQ4H WHILE AWAKE PRN (Reason: Shortness Of Breath Or Wheezing) Qty: 120 RF: 0 prednisone 20 mg Tablet 40 mg PO DAILY 3 Days Qty: 6 RF: 0 fluticasone propion-salmeterol [AirDuo RespiClick] 113-14 mcg/actuation aerosol powdr breath activated 1 inh inhalation BID Qty: 1 RF: 0 Continued atorvastatin 40 mg Tablet 40 mg PO BEDTIME RF: 0 ascorbic acid (vitamin C) [Vitamin C] 1,000 mg Tablet 1,000 mg PO DAILY RF: 0 magnesium 500 mg Tablet 500 mg PO BID RF: 0 carvedilol 6.25 mg Tablet 6.25 mg PO BID RF: 0 gabapentin 600 mg Tablet 600 mg PO BEDTIME RF: 0 torsemide 20 mg Tablet 20 mg PO DAILY RF: 0 isosorbide mononitrate 30 mg Tablet Extended Release 24 Hr 30 mg PO DAILY RF: 0 levothyroxine 25 mcg Tablet 25 mcg PO DAILY RF: 0 aspirin 81 mg Tablet 81 mg PO DAILY RF: 0 ergocalciferol (vitamin D2) 1,000 unit Capsule 2,000 unit PO DAILY RF: 0 amiodarone 100 mg Tablet 100 mg PO DAILY RF: 0 Eliquis 5 mg Tablet 5 mg PO BID RF: 0 Entresto 24-26 mg Tablet 1 tab PO BID RF: 0 Discharge Orders: Discharge Order (Routine); Ordered 11/23/20 Ordered By: Mitch Yen Diet: advance to usual diet Activity on Discharge: As tolerated Visit Report Forms: Patient Portal Discharge page Care Plan Goals: Read below Health Concerns: Read below Plan of Treatment: You were admitted to the hospital for treatment of worsening shortness of breath. Your required BiPAP in the emergency and was admitted to medical floors with treatment with oxygen, steroids, nebulizers and IV Lasix. You were evaluated by inventory control analyst who recommended to continue your home medications. You were evaluated for home oxygen. It will be delivered to place to use with exertion and at bedtime. Continue Prednisone as prescribed To use nebulizer as needed Start air-duo inhaler To follow-up with PCP as scheduled
== END 2020-11-23 16:18 | disposition home health service (06) | DRG 291 ==
LOC: HO.ED 08:14 → HO.IMC 14:34
PROVIDERS: Physician Assistant Medical; Admitting Provider Student in an Organized Health Care Education/Training Program; Emergency Provider Student in an Organized Health Care Education/Training Program; Visit Provider Student in an Organized Health Care Education/Training Program
DX: I13.0 Hypertensive heart and chronic kidney disease with heart failure and stage 1 through stage 4 chronic kidney disease, or unspecified chronic kidney disease (principal); I50.43 Acute on chronic combined systolic (congestive) and diastolic (congestive) heart failure; J96.01 Acute respiratory failure with hypoxia; N17.9 Acute kidney failure, unspecified; J44.1 Chronic obstructive pulmonary disease with (acute) exacerbation; Z95.810 Presence of automatic (implantable) cardiac defibrillator; I25.10 Atherosclerotic heart disease of native coronary artery without angina pectoris; N18.9 Chronic kidney disease, unspecified; I48.0 Paroxysmal atrial fibrillation; F17.210 Nicotine dependence, cigarettes, uncomplicated; G89.29 Other chronic pain; R79.89 Other specified abnormal findings of blood chemistry; Z71.6 Tobacco abuse counseling; E03.9 Hypothyroidism, unspecified; I49.3 Ventricular premature depolarization; I25.5 Ischemic cardiomyopathy; Z20.828 Contact with and (suspected) exposure to other viral communicable diseases; Z79.01 Long term (current) use of anticoagulants; Z79.51 Long term (current) use of inhaled steroids; Z79.52 Long term (current) use of systemic steroids; Z79.82 Long term (current) use of aspirin; Z79.890 Hormone replacement therapy; Z79.899 Other long term (current) drug therapy
CPT/HCPCS: 0241U; 36415; 71045; 80048; 80053; 83735; 83880; 84484; 85025; 85027; 85610; 93005; 94640; 94660; 97162; 99284; 99285; 99291; J1940; J2920

== ENCOUNTER → 2020-11-30 10:03 | Outpatient (REF) | payer MEDICARE, SELFPAY ==
--- NOTE | 2020-11-30 10:07 | CA_ITS ---
Transthoracic Echocardiogram Patient (Last, First, Middle): Norberto Orr D Gender: Male Date of : 1945 Age: 75 Procedure Date: 11/30/2020 Procedure Type: Transthoracic Echocardiogram Location: OP Height: 172.72 cm Weight: 83.46 kg BSA: 1.97 m2 Heart Rate: bpm BP: 124 / 60 mmHg Chaplaincy: Referring MD: Meg Kumar TOXICOLOGY SUPERVISOR-[employer] Kitchen: Renny Parsons MD Symptoms: I25.10 - Atherosclerotic heart disease of [place] coronary artery without angina pectoris Study Quality: difficult parasternal images ECG Rhythm: Ventriculary paced rhythm with PVC Conclusions: - 1. Moderate LV systolic dysfunction with wall motion abnormality consistent with ischemic cardiomyopathy 2. Moderately dilated left atrium 3. Presence of MitraClip with [id number] mitral regurgitation 4. Normal RV systolic pressure normal right atrial pressures 5. No pericardial effusion Findings Left Ventricle Normal left ventricular cavity size. There is normal left ventricular wall thickness. The left ventricular systolic function is moderately decreased. The visually estimated ejection fraction is between 35-40%. There is evidence of regional wall motion abnormalities. Diastolic function is indeterminate on the basis of available data. Wall Motion Rest Echo Findings The inferoseptal wall, the basal inferior, and mid inferior segments are akinetic. All other scored wall segments showed normal motion. Right Ventricle Normal right ventricular cavity size. There is normal right ventricular systolic function. There is an ICD wire seen in the right ventricle. Atria The left atrium is moderately dilated. Interatrial shunt cannot be excluded. The right atrium is likely dilated. Aortic Valve Normal aortic valve structure and function. There is no aortic valve stenosis. There is no aortic valve regurgitation. Mitral Valve There is mild mitral annular dilatation. The mitral valve leaflet tips are tethered with refractile density, most consistent with MitraClip. there are 2 separate jets of mitral regurgitation noted, overall consistent with mild to-moderate mitral regurgitation. Pulmonic Valve The pulmonic valve was not well visualized. Tricuspid Valve Normal tricuspid valve structure. There is mild tricuspid valve regurgitation. The right ventricular systolic pressure is normal. The right ventricular systolic pressure is 27 mmHg. There is no evidence of pulmonary hypertension. Great Vessels All visible segments of the aorta are normal in size. The pulmonary artery was not well visualized. Venous The inferior vena cava is normal in size and collapses greater than 50% with inspiration. Pericardium/Pleural There is no evidence of pericardial effusion. Prior Study Comparison Changes noted compared to prior study dated: 12/22/2019. LV systolic function appears marginally reduced Measurements 2D Linear Measurements IVSd: 1.13 0.6-0.9/0.6-1.0 cm LVIDd: 4.18 3.9-5.3/4.2-5.9 cm LVIDd Index: 2.12 2.4-3.2/2.2-3.1 cm/m2 LVIDs: 2.64 2.0-3.6 cm LVPWd: 1.08 0.7-1.1 cm Ao Root: 2.80 2.1-3.5 cm LA Diam: 5.00 2.7-3.8/3.0-4.0 cm LAIDs Index: 2.54 1.5-2.3 cm/m2 LV Mass: 195.40 67-162/88-224 g LV Mass Index: 99.19 43-95/49-115 g/m2 LVOT Diam: 1.90 3.0+(-)1.3 cm 2D Systolic Function EF 4C: 28.70 >55% EF 2C: 45.40 >55% EF BiP: 36.10 >55% Mitral Valve MV VTI: 0.33 MV Pk Prince: 1.54 MV Mn Prince: 0.72 MV Pk Grad: 9.00 MV Mn Grad: 3.00 MV Pk E: 1.08 MV Decel Time: 187.00 E'Lateral: 13.30 E'Medial: 8.80 E/E' Med: 12.30 E/E' Lat: 8.10 PHT: 55.00 MVA PHT: 4.00 MVA Continuity: 1.36 Decel Bea[place]gard: 5.77 Aortic Valve AoV Pk Prince: 1.34 AoV Mn Prince: 0.91 AoV VTI: 0.23 AoV Pk Grad: 7.00 Aov Mn Grad: 4.00 TREVOR Cont.VTI: 1.93 LVOT LVOT Pk Prince: 0.82 LVOT Mn Prince: 0.57 LVOT VTI: 0.16 LVOT Pk Grad: 3.00 LVOT Mn Grad: 1.00 LVOT Diam: 1.90 LVOT Area: 2.84 Diastolic Function MV Pk E: 1.08 E'Medial: 8.80 E/E' Med: 12.30 E' Laterial: 13.30 E/E' Lat: 8.10 Tricuspid Valve TR Pk Prince: 2.17 TR Pk Grad: 19.00 RA Press: 8.00 RVSP: 27.00 Great Vessels Aorta Ao Root-2D: 2.80 2.0-3.7 cm Pulmonary Valve PV Pk Prince: 0.71 Peak PV Grad: 2.00 Updated in Other Vendor System with Status of Final Renny Parsons MD electronically signed on 12/01/2020 10:54:25 AM with status of Final
== END ==
LOC: HO.CARD 10:03
PROVIDERS: PCP Internal Medicine; Visit Provider Nurse Practitioner Family
DX: I25.10 Atherosclerotic heart disease of native coronary artery without angina pectoris (principal); I42.9 Cardiomyopathy, unspecified; I10 Essential (primary) hypertension; Z98.890 Other specified postprocedural states; Z95.818 Presence of other cardiac implants and grafts; Z95.810 Presence of automatic (implantable) cardiac defibrillator
CPT/HCPCS: 93306

== ENCOUNTER → 2020-12-08 10:44 | Outpatient (BNVA) | payer MEDICARE, OTHER, SELFPAY | PROVIDERS: PCP Internal Medicine; Visit Provider Nurse Practitioner Family | DX: I50.42 Chronic combined systolic (congestive) and diastolic (congestive) heart failure (principal); I11.0 Hypertensive heart disease with heart failure; I25.10 Atherosclerotic heart disease of native coronary artery without angina pectoris; I25.5 Ischemic cardiomyopathy; I48.0 Paroxysmal atrial fibrillation; Z98.890 Other specified postprocedural states; Z95.818 Presence of other cardiac implants and grafts; M54.9 Dorsalgia, unspecified; G89.29 Other chronic pain; Z95.810 Presence of automatic (implantable) cardiac defibrillator | CPT/HCPCS: Q3014 ==

== ENCOUNTER 2020-12-19 19:55 | Inpatient (IN) | payer MEDICARE, OTHER, SELFPAY ==
--- NOTE | 2020-12-19 | ECG_ITS ---
Test Reason : CHEST PAIN Blood Pressure : / mmHG Vent. Rate : 083 BPM Atrial Rate : 083 BPM P-R Int : 126 ms QRS Dur : 144 ms QT Int : 436 ms P-R-T Axes : 000 250 034 degrees QTc Int : 512 ms AV paced rhythm with fusion beats. Abnormal ECG When compared with ECG of 21-NOV-2020 15:51, No significant changes seen Referred By: Johan Castrejon Electronically Signed By:Sivakumar Mcbride
[2020-12-19 20:15] VITALS: BP 128/80; BP 134/69; PULSE 80; PULSE 89; RESP 20; TEMP 37.7; O2SAT 97; O2SAT 98; BMI 27.2
--- NOTE | 2020-12-19 21:02 | XR_ITS ---
EXAMINATION: XR CHEST CLINICAL INFORMATION: Shortness of breath. COMPARISON: Chest 11/20/2020 TECHNIQUE: Frontal view of the chest was obtained. FINDINGS: There is diffuse patchy opacities and prominent interstitial markings seen in both lungs suggestive of interstitial pneumonitis or infiltrate. Heart size and pulmonary vascularity is normal. No gross bony abnormality seen. There are pacer electrodes in right atrium and right ventricle. XR/XR chest 1V IMPRESSION: Bilateral patchy opacities and prominent interstitial markings. Similar findings were seen on the previous study 11/20/2020. Acute interstitial infiltrates on chronic findings is suspected.
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
[2020-12-19] MEDS: Albuterol Sulfate (0.083%) 2.5 MG/3 ML VIAL.NEB INHALE (21:29)
[2020-12-19 21:31] VITALS: PULSE 93; O2SAT 100
[2020-12-19 22:23] VITALS: BP 100/59; PULSE 80; RESP 22; TEMP 36.8; O2SAT 96
[2020-12-19] MEDS: methylPREDNISolone Sod Succ/PF 125 MG/2 ML VIAL IVPUSH (22:24)
[2020-12-19 22:37] LABS: Basophils Percent Auto 0.7 % (0-2); Eosinophils Absolute Auto 0.1 X10*3/uL (0.0-0.4); Eosinophils Percent Auto 2.1 % (0-4); Hematocrit 30.5 % (42-52); Hemoglobin 9.8 g/dl (14.0-18.0); Imm Gran Abs Auto 0.03 X10*3/uL (0.00-0.03); Imm Gran Pct Auto 0.5 % (0.0-0.4); Lymphocytes Absolute Auto 0.7 X10*3/uL (1.2-4.9); Lymphocytes Percent Auto 10.9 % (20-40); MANUAL DIFF FLAG SCAN; Mean Corpuscular HGB Conc 32.1 g/dl (31.0-36.0); Mean Corpuscular Hemoglobin 26.4 pg (27.0-33.0); Mean Corpuscular Volume 82.2 fL (80-98); Mean Platelet Volume 9.6 fL (9.4-12.4); Monocytes Absolute Auto 0.8 X10*3/uL (0.1-1.2); Monocytes Percent Auto 12.7 % (2-11); Neutrophils Absolute Auto 4.5 X10*3/uL (2.0-8.3); Neutrophils Percent Auto 73.1 % (45-73); Platelet Count 150 X10*3/uL (160-400); Red Blood Count 3.71 X10*6/uL (4.60-5.80); Red Cell Distribution Width 15.2 % (11.0-16.0); SCAN SMEAR FLAG 1; White Blood Count 6.1 X10*3/uL (4.8-10.8)
[2020-12-19 22:40] LABS: SLIDE REVIEW VERIFIED
[2020-12-19 22:45] LABS: INTERNATIONAL NORM RATIO 2.3 (0.9-1.1)
[2020-12-19 22:48] LABS: Partial Thromboplastin Time 44.5 SEC (24.1-38.0)
[2020-12-19 22:55] LABS: Lactic Acid 1.4 mmol/L (0.5-2.0)
[2020-12-19 23:01] LABS: COVID-19 Test Negative (Negative)
[2020-12-19 23:06] LABS: B Type Natriuretic Peptide 2382 pg/mL (<100); Troponin-I High Sensitivity 25.8 ng/L (<3.5-35.0)
[2020-12-19 23:11] LABS: Alanine Aminotransferase 18 U/L (0-40); Albumin Level 2.7 g/dL (3.5-5.0); Alkaline Phosphatase 99 U/L (39-117); Anion Gap 14 (12-20); Aspartate Amino Transferase 23 U/L (5-37); Bilirubin Total 1.2 mg/dL (0.0-1.0); Blood Urea Nitrogen 22 mg/dL (9-16); Calcium 7.5 mg/dL (8.4-10.2); Carbon Dioxide 22 mmol/L (22-29); Chloride 109 mmol/L (96-108); Creatinine Clr Calc Pharmacy 50.9; Estimated Glomerular Filt Rate 57; Glucose Random 117 mg/dL (60-115); Lipase 20 U/L (8-78); Potassium 4.8 mmol/l (3.3-5.1); Sodium 140 mmol/L (135-145); Total Protein 5.4 g/dL (6.5-8.0)
[2020-12-20] VITALS (15 sets, daily range): BP systolic 90–113; BP diastolic 52–64; PULSE 80–99; RESP 13–19; TEMP 36.4–36.8; O2SAT 2–99; BMI 27.2
--- NOTE | 2020-12-20 | XR_ITS ---
EXAMINATION: XR CHEST CLINICAL INFORMATION: CHF. COMPARISON: Chest 12/19/2020 TECHNIQUE: 2 views of the chest were obtained. FINDINGS: The lungs are well-expanded with slight prominence of interstitial markings but no consolidation seen. Bilateral patchy opacities seen previously has slightly improved. There is no pleural effusion. Heart size and pulmonary vascularity is normal. There are pacer electrodes in right atrium and right ventricle. No gross bony abnormality seen. XR/XR chest 2V IMPRESSION: Increased bilateral fine interstitial markings but no acute pneumonic process seen. Slightly improved since 12/19/2020
[2020-12-20] MEDS: cefTRIAXone sodium 1 GM in 0.9 % Sodium Chloride 50 ML IV (01:44)
[2020-12-20] MEDS: Furosemide 40 MG/4 ML VIAL IVPUSH (01:45)
--- NOTE | 2020-12-20 02:02 | PC.NURSE ---
PATIENT REPORTING FEELING ITCHY AFTER BEING MEDICATED. NO SWELLING OR HIVES NOTED. MAINTAINING AIRWAY. CALLED AND SPOKE WITH DR CASON. WILL PUT IN MEDIATIONS.
[2020-12-20] MEDS: Azithromycin 500 MG in 0.9 % Sodium Chloride 250 ML 125 MG IV (02:15)
[2020-12-20] MEDS: diphenhydrAMINE HCL 50 MG/ML VIAL 25 MG IVPUSH (02:23)
--- NOTE | 2020-12-20 02:29 | PC.NURSE ---
Pt arrives to room 16 from room 3, report taken from Maryann. Pt is awake and alert, with Rocephin infusing, pt reporting itching to entire body, -rash/hives noted, pt denies SOB, speaking in full sentences, swallowing without difficulty. Previous RN contacting hospitalist, pt given Benadryl per JAN, reports relief after Benadryl, states itching subsided. Pt medicated with ABX per JAN. Pt voiding easily in bedside urinal. Pt on O2 2 lpm via NC stating @ 98%. Pt requesting pillow and lights dim for comfort. VSS. Call [facility] within reach, continue to monitor.
--- NOTE | 2020-12-20 05:50 | PM.IMHP ---
History of Present Illness Date of Service: 12/20/20 Chief Complaint: SOB This is a 75-year-old male with past medical history of CHF status post AICD, COPD, paroxysmal AFib, hypertension, CKD, CAD, chronic PE who presents to the hospital with complaints of shortness of breath and left-sided chest pain right at the location of where his AICD as. Patient reports that he has his cardiology TELEVISION NEWS VIDEO EDITOR making recommendation to him daily about his torsemide. He usually takes between 10-20 mg depending on his fluid based on a machine that he uses at home. His TELEVISION NEWS VIDEO EDITOR has been telling him not to take torsemide for the past 1 week because his luungs were dry . He has having shortness of breath with minimal activity, been coughing, bringing up phlegm, denies any fever or chills. Denies any recent sick contacts or travel. He reports that he never has leg swelling and is mostly fluid gathers in his abdomen which he feels is distended He describes it is chest pain as discomfort, occuring at rest, located on the AICD, nonradiating, worse with exhalation, 6/10 initially but now 0, He otherwise denies any headache, change in vision, no palpitation, no nausea vomiting, no abdominal pain, no diarrhea or constipation, no urinary symptoms. Of note patient was discharged on November 22 after being managed for COPD as well as CHF exacerbation. On arrival To the ED hemodynamically stable with no significant abnormal vital. Labs are significant for WBC count of 6.1, hemoglobin of 9.8, hematocrit 30.5, PT of 27, INR 2.3, sodium of 140, potassium 4.8, BUN of 22, creatinine of 1.25 which is better than his discharge in October, BNP of 2382 (800 on discharge in October) Chest x-ray revealed bilateral patchy opacities and prominent interstitial markings this is similar findings to the previous study on 11/20 but there is acute interstitial infiltrates on chronic findings Review of Systems Review of Systems: Yes all other systems are reviewed and are negative REPLACED BY [facility] Medical History Biventricular implantable 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-defibrillator (ICD) in situ CAD (coronary artery disease) Cardiomyopathy Chronic back pain Chronic pulmonary embolism without acute cor pulmonale CKD (chronic kidney disease) Combined systolic and diastolic heart failure COPD (chronic obstructive pulmonary disease) HLD (hyperlipidemia) HTN (hypertension) Hyperkalemia ICD (implantable 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-defibrillator) in place Ischemic cardiomyopathy alf current use of amiodarone Paroxysmal atrial fibrillation PVC (premature ventricular contraction) Family History Father Cancer Mother Cancer Brother Lymph node cancer Skin cancer Sister Diabetes Surgical History H/O cardiac catheterization (~10/2017) History of ankle surgery History of cardiac pacemaker History of elbow surgery History of eye surgery History of surgery S/P mitral valve clip implantation Social History Household Members: Spouse Housing: House Alcohol intake: never Smoking Status: Former smoker Tobacco Type: Cigarette Cigarettes Per Day: 8 Substance Use Type: Marijuana Advance Directives: No Advance Directives Information Provided: No service: No Current occupational status: disabled Meds Allergies Allergy/AdvReac Type Severity Reaction Status Date / Time bee pollen [BEE STINGS] Allergy Severe ANAPHYLAXIS Verified 11/29/20 15:39 Home Medications Medication Instructions Recorded Confirmed Type Eliquis 5 mg PO BID 11/20/20 12/20/20 History Entresto 1 tab PO BID 11/20/20 12/20/20 History amiodarone 100 mg PO DAILY 11/20/20 12/20/20 History ascorbic acid (vitamin C) [Vitamin 1,000 mg PO DAILY 11/20/20 12/20/20 History C] aspirin 81 mg PO DAILY 11/20/20 12/20/20 History atorvastatin 40 mg PO BEDTIME 11/20/20 12/20/20 History carvedilol 6.25 mg PO BID 11/20/20 12/20/20 History ergocalciferol (vitamin D2) 2,000 unit PO DAILY 11/20/20 12/20/20 History gabapentin 600 mg PO BEDTIME 11/20/20 12/20/20 History isosorbide mononitrate 30 mg PO DAILY 11/20/20 12/20/20 History levothyroxine 25 mcg PO DAILY 11/20/20 12/20/20 History magnesium 500 mg PO BID 11/20/20 12/20/20 History torsemide 20 mg PO DAILY 11/20/20 12/20/20 History albuterol sulfate 90 mcg/actuation 1 puff INHALATION Q4-6H 12/08/20 12/20/20 History aerosol inhaler fluticasone 232 mcg-salmeterol 14 1 inh INHALATION DAILY 12/08/20 12/20/20 History mcg/actuation breath activated powdr Physical Exam Vital Signs and Narrative: Vital Signs: Last Vital Signs Temp 98.1 F 12/20/20 01:39 Pulse 85 12/20/20 04:52 Resp 16 12/20/20 04:52 BP 98/56 L 12/20/20 04:52 Pulse Ox 98 12/20/20 04:52 Body Mass Index 27.2 Const: General: cooperative and no acute distress Orientation/consciousness: patient oriented x3 Eyes: General: appearance normal, both eyes and all related structures Resp: Effort & Inspection: normal respiratory effort and able to speak in complete sentences Cardio: Rate: regular rate Rhythm: regular rhythm GI: Palpation (GI): Soft to palpation Auscultation: normal bowel sounds Skin: General skin exam: no rashes or lesions noted Neuro: General: patient oriented x3 Cognition (Neuro): normal cognition Extrem: General: Yes normal to inspection and Yes no pedal edema Results Labs CBC and Chem 7: 12/19/20 22:28 12/19/20 22:28 Labs: Laboratory Results - last 24 hr 12/19/20 12/19/20 12/19/20 22:24 22:28 22:28 MCV 82.2 MCH 26.4 L MCHC 32.1 RDW 15.2 Plt Count 150 L D MPV 9.6 Immature Gran % (Auto) 0.5 H Neut % (Auto) 73.1 H Lymph % (Auto) 10.9 L [place] % (Auto) 12.7 H Eos % (Auto) 2.1 Baso % (Auto) 0.7 Lymph # (Auto) 0.7 L [place] # (Auto) 0.8 Eos # (Auto) 0.1 Baso # (Auto) 0.0 Abs Immat Gran (auto) 0.03 Absolute Neuts (auto) 4.5 Absolute Nucleated RBC 0.000 Nucleated RBC % (auto) 0.0 Smear Tech's Comments VERIFIED PT INR APTT Anion Gap Estim Creat Clear Calc Estimated GFR Random Glucose Lactic Acid Calcium Total Bilirubin AST ALT Alkaline Phosphatase Troponin I High Sens B-Natriuretic Peptide 2382 H Total Protein Albumin Lipase COVID-19 (KURT) Negative COVID-19 [place] Com See Note 12/19/20 12/19/20 12/19/20 22:28 22:28 22:28 MCV MCH MCHC RDW Plt Count MPV Immature Gran % (Auto) Neut % (Auto) Lymph % (Auto) [place] % (Auto) Eos % (Auto) Baso % (Auto) Lymph # (Auto) [place] # (Auto) Eos # (Auto) Baso # (Auto) Abs Immat Gran (auto) Absolute Neuts (auto) Absolute Nucleated RBC Nucleated RBC % (auto) Smear Tech's Comments PT 27.0 H D INR 2.3 H APTT 44.5 H Anion Gap 14 Estim Creat Clear Calc 50.9 Estimated GFR 57 Random Glucose 117 H Lactic Acid 1.4 Calcium 7.5 L Total Bilirubin 1.2 H AST 23 D ALT 18 Alkaline Phosphatase 99 Troponin I High Sens B-Natriuretic Peptide Total Protein 5.4 L D Albumin 2.7 L D Lipase 20 COVID-19 (KURT) COVIDNumberPicture 12/19/20 22:28 MCV MCH MCHC RDW Plt Count MPV Immature Gran % (Auto) Neut % (Auto) Lymph % (Auto) [place] % (Auto) Eos % (Auto) Baso % (Auto) Lymph # (Auto) [place] # (Auto) Eos # (Auto) Baso # (Auto) Abs Immat Gran (auto) Absolute Neuts (auto) Absolute Nucleated RBC Nucleated RBC % (auto) Smear Tech's Comments PT INR APTT Anion Gap Estim Creat Clear Calc Estimated GFR Random Glucose Lactic Acid Calcium Total Bilirubin AST ALT Alkaline Phosphatase Troponin I High Sens 25.8 D B-Natriuretic Peptide Total Protein Albumin Lipase COVID-19 (KURT) COVID-[employer] [facility] Radiologist's Impressions: Impressions Chest X-Ray 12/19/20 21:02 IMPRESSION: Bilateral patchy opacities and prominent interstitial markings. Similar findings were seen on the previous study 11/20/2020. Acute interstitial infiltrates on chronic findings is suspected. Assessment and Plan (1) CHF (congestive heart failure): Qualifiers: Heart failure type: biventricular Qualified Code(s): I50.82 - Biventricular heart failure Status: Acute (2) COPD exacerbation: Status: Acute This is a 75-year-old male with past medical history of CHF, COPD among the list of other diseases who presents to the hospital w dyspnea # DYSPNEA - possibly secondary to COPD exacerbation versus CHF versus both versus acute PE less likely - patient has dyspnea, cough, sputum production, as well elevated BNP - he has been off of his torsemide for 1 week as advised by his TELEVISION NEWS VIDEO EDITOR - chest x-ray shows bilateral markings which is concerning for pulmonary congestion - echocardiogram done in October shows an ejection fraction of 35-40% - is accurately recorded , he has not gained weight since discharge Plan: - will start patient on 40 mg of Lasix b.i.d. - given his COPD exacerbation will also start him on azithromycin and ceftriaxone pending cultures - O2 as required - daily weight, strict I&O, low-sodium diet - continue amiodarone, carvedilol Imdur, hold torsemide - cardiology consult # COPD exacerbation - has dyspnea, increased cough and sputum production - markings on chest x-ray possibly secondary to pulmonary congestion - COVID-19 PCR negative Plan: - will start him on Solu-Medrol 40 IV b.i.d., breathing treatments, antibiotics as above - monitor respiratory status # paroxysmal AFib -continue Eliquis, carvedilol # CAD - has no chest pain, continue carvedilol, aspirin, statin # hypothyroidism - continue levothyroxine DVT prophylaxis: Eliquis
[2020-12-20 06:58] LABS: Troponin-I High Sensitivity 15.3 ng/L (<3.5-35.0)
[2020-12-20] MEDS: 0.9 % Sodium Chloride Flush 3 ML SYRINGE IVFLUSH ×2 (08:17→16:35)
[2020-12-20] MEDS: Albuterol/Iprat 2.5/0.5MG 3 ML AMPUL.NEB INHALE ×4 (08:24→19:33)
--- NOTE | 2020-12-20 11:41 | P.CONCA_ITS ---
History of Present Illness History of Present Illness Date of Service: 12/20/20 Requesting physician: Mitch Yen Consult reason: other (Dyspnea) Chief complaint: Dyspnea Narrative: 75-year-old gentleman with complex past medical history including hypertension, hyperlipidemia, chronic kidney disease, paroxysmal atrial fibrillation on Eliquis, premature ventricular complexes, previous pulmonary embolism, mitral regurgitation status post mitral clip, cardiomyopathy with VASCULAR RADIOLOGIST and CardioMEMS device in the past. He also has COPD and has been on home oxygen 1 liter/minute. Is seems quite frail and has dyspnea on exertion with few steps at baseline. Recently his CardioMEMS readings showed that his PA diastolic are running from 9-10 mm Hg. His torsemide was held for the last week. He is saying over the last few days is becoming more short of breath than usual. He is saying he had some chills. He has been dizzy for long time. With these symptoms he presented to [facility]. His chest x-ray showing bilateral interstitial changes. He is saying he is weak and his legs give way. He has left footdrop. He is complaining that he is very weak and not confident about walking because he has been falling. He also had couple of episodes of diarrhea. Review of Systems Review of Systems: Shortness of breath, dizziness, diarrhea PMFSH Past Medical History Medical History Biventricular implantable 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-defibrillator (ICD) in situ CAD (coronary artery disease) Cardiomyopathy Chronic back pain Chronic pulmonary embolism without acute cor pulmonale CKD (chronic kidney disease) Combined systolic and diastolic heart failure COPD (chronic obstructive pulmonary disease) HLD (hyperlipidemia) HTN (hypertension) Hyperkalemia ICD (implantable 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-defibrillator) in place Ischemic cardiomyopathy terminal carman current use of amiodarone Paroxysmal atrial fibrillation PVC (premature ventricular contraction) Family History Family History Father Cancer Mother Cancer Brother Lymph node cancer Skin cancer Sister Diabetes Surgical History Surgical History H/O cardiac catheterization (~10/2017) History of ankle surgery History of cardiac pacemaker History of elbow surgery History of eye surgery History of surgery S/P mitral valve clip implantation Social History Social History Household Members: Spouse Housing: House Alcohol intake: never Smoking Status: Former smoker Tobacco Type: Cigarette Cigarettes Per Day: 8 Use of substances other than those prescribed or required for medical reasons: Yes Substance Use Type: Marijuana Substance Use Type Other:: edible marijuana Any prior treatment program specific to substance use: No Advance Directives: No Advance Directives Information Provided: No service: No Current occupational status: disabled Meds Allergies Allergy/AdvReac Type Severity Reaction Status Date / Time bee pollen [BEE STINGS] Allergy Severe ANAPHYLAXIS Verified 11/29/20 15:39 Home Medications Medication Instructions Recorded Confirmed Type Eliquis 5 mg PO BID 11/20/20 12/20/20 History Entresto 1 tab PO BID 11/20/20 12/20/20 History amiodarone 100 mg PO DAILY 11/20/20 12/20/20 History ascorbic acid (vitamin C) [Vitamin 1,000 mg PO DAILY 11/20/20 12/20/20 History C] aspirin 81 mg PO DAILY 11/20/20 12/20/20 History atorvastatin 40 mg PO BEDTIME 11/20/20 12/20/20 History carvedilol 6.25 mg PO BID 11/20/20 12/20/20 History ergocalciferol (vitamin D2) 2,000 unit PO DAILY 11/20/20 12/20/20 History gabapentin 600 mg PO BEDTIME 11/20/20 12/20/20 History isosorbide mononitrate 30 mg PO DAILY 11/20/20 12/20/20 History levothyroxine 25 mcg PO DAILY 11/20/20 12/20/20 History magnesium 500 mg PO BID 11/20/20 12/20/20 History torsemide 20 mg PO DAILY 11/20/20 12/20/20 History albuterol sulfate 90 mcg/actuation 1 puff INHALATION Q4-6H 12/08/20 12/20/20 History aerosol inhaler fluticasone 232 mcg-salmeterol 14 1 inh INHALATION DAILY 12/08/20 12/20/20 History mcg/actuation breath activated powdr Physical Exam Vital Signs: Vital Signs: Last Vital Signs Temp 98.2 F 01/25/21 10:52 Pulse 90 12/20/20 10:52 Resp 13 12/20/20 10:52 BP 96/59 L 12/20/20 10:52 Pulse Ox 98 12/20/20 10:52 Body Mass Index 27.2 GENERAL APPEARANCE: in no acute distress, frail. HEENT: unremarkable. HEAD: normocephalic, atraumatic. NECK/THYROID: no carotid bruit, no jugular venous distention. SKIN: no suspicious lesions, warm and dry. HEART: no murmurs, regular rate and rhythm, S1, S2 normal. LUNGS: clear to auscultation bilaterally, diminished breath sounds. ABDOMEN: normal, bowel sounds present, soft, nontender, nondistended. EXTREMITIES: no clubbing, cyanosis, or edema. PERIPHERAL PULSES: equal. NEUROLOGIC: nonfocal, alert and oriented. PSYCH: Depressed. Results Labs and Meds Result diagrams: 12/19/20 22:28 12/19/20 22:28 Lab results: Laboratory Results - last 24 hr 12/19/20 12/19/20 12/19/20 22:24 22:28 22:28 WBC 6.1 RBC 3.71 L Hgb 9.8 L Hct 30.5 L MCV 82.2 MCH 26.4 L MCHC 32.1 RDW 15.2 Plt Count 150 L D MPV 9.6 Immature Gran % (Auto) 0.5 H Neut % (Auto) 73.1 H Lymph % (Auto) 10.9 L [place] % (Auto) 12.7 H Eos % (Auto) 2.1 Baso % (Auto) 0.7 Lymph # (Auto) 0.7 L [place] # (Auto) 0.8 Eos # (Auto) 0.1 Baso # (Auto) 0.0 Abs Immat Gran (auto) 0.03 Absolute Neuts (auto) 4.5 Absolute Nucleated RBC 0.000 Nucleated RBC % (auto) 0.0 Smear Tech's Comments VERIFIED PT INR APTT Sodium Potassium Chloride Carbon Dioxide Anion Gap BUN Creatinine Estim Creat Clear Calc Estimated GFR Random Glucose Lactic Acid Calcium Total Bilirubin AST ALT Alkaline Phosphatase Troponin I High Sens B-Natriuretic Peptide 2382 H Total Protein Albumin Lipase COVID-19 (KURT) Negative COVID-19 Clin Com See Note 12/19/20 12/19/20 12/19/20 22:28 22:28 22:28 WBC RBC Hgb Hct MCV MCH MCHC RDW Plt Count MPV Immature Gran % (Auto) Neut % (Auto) Lymph % (Auto) [place] % (Auto) Eos % (Auto) Baso % (Auto) Lymph # (Auto) [place] # (Auto) Eos # (Auto) Baso # (Auto) Abs Immat Gran (auto) Absolute Neuts (auto) Absolute Nucleated RBC Nucleated RBC % (auto) Smear Tech's Comments PT 27.0 H D INR 2.3 H APTT 44.5 H Sodium 140 Potassium 4.8 Chloride 109 H Carbon Dioxide 22 Anion Gap 14 BUN 22 H D Creatinine 1.25 Estim Creat Clear Calc 50.9 Estimated GFR 57 Random Glucose 117 H Lactic Acid 1.4 Calcium 7.5 L Total Bilirubin 1.2 H AST 23 D ALT 18 Alkaline Phosphatase 99 Troponin I High Sens B-Natriuretic Peptide Total Protein 5.4 L D Albumin 2.7 L D Lipase 20 COVID-19 (KURT) COVID-[employer] 12/19/20 12/20/20 22:28 06:03 WBC RBC Hgb Hct MCV MCH MCHC RDW Plt Count MPV Immature Gran % (Auto) Neut % (Auto) Lymph % (Auto) [place] % (Auto) Eos % (Auto) Baso % (Auto) Lymph # (Auto) [place] # (Auto) Eos # (Auto) Baso # (Auto) Abs Immat Gran (auto) Absolute Neuts (auto) Absolute Nucleated RBC Nucleated RBC % (auto) Smear Tech's Comments PT INR APTT Sodium Potassium Chloride Carbon Dioxide Anion Gap BUN Creatinine Estim Creat Clear Calc Estimated GFR Random Glucose Lactic Acid Calcium Total Bilirubin AST ALT Alkaline Phosphatase Troponin I High Sens 25.8 D 15.3 B-Natriuretic Peptide Total Protein Albumin Lipase COVID-19 (KURT) COVID-19 [employer] Imaging Radiologist's impression: Impressions Chest X-Ray 12/19/20 21:02 IMPRESSION: Bilateral patchy opacities and prominent interstitial markings. Similar findings were seen on the previous study 11/20/2020. Acute interstitial infiltrates on chronic findings is suspected. Assessment and Plan (1) CHF (congestive heart failure): Qualifiers: Heart failure type: biventricular Qualified Code(s): I50.82 - Biventricular heart failure Status: Acute (2) COPD exacerbation: Status: Acute (3) Paroxysmal atrial fibrillation: Status: Acute (4) Combined systolic and diastolic heart failure: Qualifiers: Heart failure chronicity: chronic Qualified Code(s): I50.42 - Chronic combined systolic (congestive) and diastolic (congestive) heart failure Status: Acute 75-year-old gentleman here for dyspnea and dizziness. The dizziness is longstanding symptom for him. He is quite frail and cannot walk few steps. Recently his torsemide was held because his PA diastolic pressures were running low on CardioMEMS assessment. He is saying he is more short of breath than before and presented to [facility]. His NT proBNP is elevated. He has interstitial changes on x-ray. Agree with IV diuretics right now. Please repeat chest x-ray tomorrow to see if interstitial changes are improving. If they do not improve then this is likely some atypical pneumonia. If x-ray improves tomorrow then I would resume his home torsemide dose and stop the IV Lasix. He does not look significantly overloaded by exam. Most of his dyspnea is due to deconditioning which is due to heart and lung disease. He is unable to walk few steps without getting out of breath. Resume other home medications with hold parameters. We will follow along with you. Thank you for allowing me to participate in the care of your patient. Please feel free to contact me if you have any questions.
--- NOTE | 2020-12-20 13:29 | PC.NURSE ---
per seamer (dr. aponte) hold lasix until repeat cxr/result.
[2020-12-20] MEDS: Amiodarone HCL 200 MG TABLET 100 MG PO (15:58)
[2020-12-20] MEDS: Apixaban 5 MG TABLET PO (21:22)
[2020-12-20] MEDS: Gabapentin 600 MG TABLET PO (21:22)
[2020-12-20] MEDS: carvediloL 6.25 MG TABLET PO (21:22)
[2020-12-20] MEDS: Atorvastatin Calcium 40 MG TABLET PO (21:24)
[2020-12-20] MEDS: Sacubitril/Valsartan 24/26 1 TAB TABLET PO (22:11)
[2020-12-21] VITALS: BP 131/68; PULSE 94; RESP 18; TEMP 35.8; O2SAT 99
[2020-12-21] MEDS: 0.9 % Sodium Chloride Flush 3 ML SYRINGE IVFLUSH ×2 (02:01→08:24)
[2020-12-21] MEDS: Azithromycin 500 MG in 0.9 % Sodium Chloride 250 ML 125 MG IV (02:02)
[2020-12-21 03:44] VITALS: BP 102/64; PULSE 87; RESP 18; TEMP 36.1; O2SAT 99
[2020-12-21] MEDS: Levothyroxine Sodium 25 MCG TABLET PO (05:09)
[2020-12-21 06:00] VITALS: BMI 27.2
[2020-12-21 06:51] LABS: Anion Gap 16 (12-20); Blood Urea Nitrogen 39 mg/dL (9-16); Carbon Dioxide 22 mmol/L (22-29); Chloride 108 mmol/L (96-108); Creatinine Clr Calc Pharmacy 45.4; Estimated Glomerular Filt Rate 50; Glucose Random 169 mg/dL (60-115); Potassium 5.4 mmol/l (3.3-5.1); Sodium 141 mmol/L (135-145)
[2020-12-21 06:52] LABS: Basophils Percent Auto 0.1 % (0-2); Hemoglobin 9.4 g/dl (14.0-18.0); Imm Gran Abs Auto 0.04 X10*3/uL (0.00-0.03); Imm Gran Pct Auto 0.5 % (0.0-0.4); Lymphocytes Absolute Auto 0.6 X10*3/uL (1.2-4.9); Lymphocytes Percent Auto 7.5 % (20-40); MANUAL DIFF FLAG SCAN; Mean Corpuscular HGB Conc 31.3 g/dl (31.0-36.0); Mean Corpuscular Hemoglobin 26.2 pg (27.0-33.0); Mean Corpuscular Volume 83.6 fL (80-98); Mean Platelet Volume 10.5 fL (9.4-12.4); Monocytes Absolute Auto 0.4 X10*3/uL (0.1-1.2); Monocytes Percent Auto 4.5 % (2-11); Neutrophils Absolute Auto 7.5 X10*3/uL (2.0-8.3); Neutrophils Percent Auto 87.4 % (45-73); Platelet Count 149 X10*3/uL (160-400); Red Blood Count 3.59 X10*6/uL (4.60-5.80); Red Cell Distribution Width 15.5 % (11.0-16.0); SCAN SMEAR FLAG 1; White Blood Count 8.5 X10*3/uL (4.8-10.8)
[2020-12-21] MEDS: Albuterol/Iprat 2.5/0.5MG 3 ML AMPUL.NEB INHALE ×2 (07:16→11:03)
[2020-12-21 07:17] VITALS: PULSE 90; O2SAT 97
[2020-12-21 07:40] VITALS: BP 117/59; PULSE 82; RESP 19; TEMP 36.5; O2SAT 93
--- NOTE | 2020-12-21 08:00 | XR_ITS ---
EXAMINATION: XR CHEST CLINICAL INFORMATION: CHF exacerbation, COPD. COMPARISON: 12/20/2020 and 12/19/2020 chest radiographs. TECHNIQUE: Frontal view of the chest was obtained. FINDINGS: Subtle diffuse increased interstitial markings are again seen with minimal interval decrease. Minimal linear markings are seen in the right upper lobe and left lung base. The heart and mediastinal structures are unremarkable. A left-sided pacemaker device appears in good position. XR/XR chest 1V IMPRESSION: Subtle increased interstitial markings bilaterally appear minimally increased on the previous study and could represent mild edema.
[2020-12-21 08:11] LABS: SLIDE REVIEW VERIFIED
[2020-12-21] MEDS: Isosorbide Mononitrate 30 MG TAB.ER.24H PO (08:23)
[2020-12-21] MEDS: carvediloL 6.25 MG TABLET PO (08:23)
[2020-12-21] MEDS: Ascorbic Acid 500 MG TABLET 1000 MG PO (08:24)
[2020-12-21] MEDS: Amiodarone HCL 200 MG TABLET 100 MG PO (08:24)
[2020-12-21] MEDS: Aspirin Enteric Coated 81 MG TABLET.DR PO (08:24)
[2020-12-21] MEDS: Sacubitril/Valsartan 24/26 1 TAB TABLET PO (08:24)
[2020-12-21] MEDS: Apixaban 5 MG TABLET PO (08:24)
--- NOTE | 2020-12-21 08:50 | MHC.CM.PN ---
CM met with Patient at bedside. Patient lives in a 2 family house on the first floor with his /HCP, with his 2 [address]ie[address] and [id number] upstairs. Patient is active with [employer] for home O2 and he uses a cane. Patient's goal is to return home with resumption of these services and CM has initiated and will follow for dc planning. IMM addressed with Patient and the original has been given to him and as copy has been placed on the chart. PCP is Dr. Wilder Murphy.
[2020-12-21 11:07] VITALS: PULSE 88; O2SAT 96
--- NOTE | 2020-12-21 11:07 | PM.DS ---
DS: Providers Provider Date of Service: 12/21/20 Date of admission: 12/20/20 00:50 Primary care physician: Unknown Physician Consults: 12/20/20 00:50 Consult to Cardiology Routine Consulting Provider: Sivakumar Mcbride Reason for consultation: CHF exacerbation Has provider been notified: No DS: Diagnosis Discharge Diagnosis (1) CHF (congestive heart failure): Status: Acute (2) COPD exacerbation: Status: Acute (3) Paroxysmal atrial fibrillation: Status: Acute (4) Combined systolic and diastolic heart failure: Status: Acute (5) Acute and chronic respiratory failure with hypoxia: Status: Acute DS: Medications Discharge Medications Home Medications: Home Medications Medication Instructions Recorded Confirmed Eliquis 5 mg PO BID 11/20/20 12/20/20 Entresto 1 tab PO BID 11/20/20 12/20/20 amiodarone 100 mg PO DAILY 11/20/20 12/20/20 ascorbic acid (vitamin C) [Vitamin 1,000 mg PO DAILY 11/20/20 12/20/20 C] aspirin 81 mg PO DAILY 11/20/20 12/20/20 atorvastatin 40 mg PO BEDTIME 11/20/20 12/20/20 carvedilol 6.25 mg PO BID 11/20/20 12/20/20 ergocalciferol (vitamin D2) 2,000 unit PO DAILY 11/20/20 12/20/20 gabapentin 600 mg PO BEDTIME 11/20/20 12/20/20 isosorbide mononitrate 30 mg PO DAILY 11/20/20 12/20/20 levothyroxine 25 mcg PO DAILY 11/20/20 12/20/20 magnesium 500 mg PO BID 11/20/20 12/20/20 albuterol sulfate 90 mcg/actuation 1 puff INHALATION Q4-6H 12/08/20 12/20/20 aerosol inhaler fluticasone 232 mcg-salmeterol 14 1 inh INHALATION DAILY 12/08/20 12/20/20 mcg/actuation breath activated powdr Previous Rx's Medication Instructions Recorded fluticasone propion-salmeterol 1 inh INHALATION BID #1 ea 11/23/20 [AirDuo RespiClick] prednisone 40 mg PO DAILY 3 Days #6 tab 11/23/20 azithromycin 250 mg PO DAILY 3 Days #3 tab 12/21/20 ipratropium-albuterol 3 ml INHALATION BID-QID 30 Days ml 12/21/20 nebulizers #1 ea 12/21/20 prednisone 40 mg PO DAILY #6 tab 12/21/20 torsemide 10 mg PO DAILY #0 tab 12/21/20 DS: Summary Hospital Course Hospital Course: Admission note HPI This is a 75-year-old male with past medical history of CHF status post AICD, COPD, paroxysmal AFib, hypertension, CKD, CAD, chronic PE who presents to the hospital with complaints of shortness of breath and left-sided chest pain right at the location of where his AICD as. Patient reports that he has his cardiology OWNER/PHOTOGRAPHER making recommendation to him daily about his torsemide. He usually takes between 10-20 mg depending on his fluid based on a machine that he uses at home. His OWNER/PHOTOGRAPHER has been telling him not to take torsemide for the past 1 week because his luungs were dry . He has having shortness of breath with minimal activity, been coughing, bringing up phlegm, denies any fever or chills. Denies any recent sick contacts or travel. He reports that he never has leg swelling and is mostly fluid gathers in his abdomen which he feels is distended He describes it is chest pain as discomfort, occuring at rest, located on the AICD, nonradiating, worse with exhalation, 6/10 initially but now 0, He otherwise denies any headache, change in vision, no palpitation, no nausea vomiting, no abdominal pain, no diarrhea or constipation, no urinary symptoms. Of note patient was discharged on November 22 after being managed for COPD as well as CHF exacerbation. On arrival To the ED hemodynamically stable with no significant abnormal vital. Labs are significant for WBC count of 6.1, hemoglobin of 9.8, hematocrit 30.5, PT of 27, INR 2.3, sodium of 140, potassium 4.8, BUN of 22, creatinine of 1.25 which is better than his discharge in October, BNP of 2382 (800 on discharge in October) Chest x-ray revealed bilateral patchy opacities and prominent interstitial markings this is similar findings to the previous study on 11/20 but there is acute interstitial infiltrates on chronic findings Hospital course The patient was admitted to the hospital for evaluation of shortness of breath. Chest x-ray showed prominent interstitial markings and was treated with IV Lasix with fair response as his repeated chest x-ray showed significant improvement. He was evaluated by Cardiology who believed the source of shortness of breath is not cardia given his CardioMEMS reading at home were low and consistent with low cameron extra water. He received IV Lasix in changed to torsemide home does. His symptoms are likely a result of COPD exacerbation given reported cough and increased secretions. He was treated with azithromycin, IV steroids and bronchodilator with good response over the course of treatment. He was weaned down the oxygen to 1 L only and was able to ambulate for short distances as home. Plan to discharge him home on torsemide 10 mg daily. Continue treatment with azithromycin and prednisone To prescribe a nebulizer machine and discharge him on DuoNebs. Next Lyme to follow up with Cardiology as outpatient. Time Spent with Patient Time attestation: Total time spent providing and/or coordinating discharge services: Discharge coordination time: Less than 30 minutes Physical Exam Vital Signs: Vital Signs: Last Vital Signs Temp 97.7 F 12/21/20 07:40 Pulse 82 12/21/20 07:40 Resp 19 12/21/20 07:40 BP 117/59 L 12/21/20 07:40 Pulse Ox 93 12/21/20 07:40 Body Mass Index 27.2 Const: Other: Constitutional : Alert, oriented, not in distress Neck : Normal inspection, Supple Cardiovascular : RRR, S1 S2, no lower extremity edema Respiratory : Fair bilateral air entry, no basal crackles, no wheezes or rhonchi, on 1 L O2 Gastrointestinal: soft, lax, Normal bowel sounds, Non tender Skin : Warm/Dry, No rash Neurological : Alert & oriented x3, No focal deficit DS: Data Data Completed and Pending Completed studies during hospitalization [Text1]: Procedures Assistance with Respiratory Ventilation, Less than 24 Consecutive Hours, Continuous Positive Airway Pressure (11/20/20) Labs on day of discharge: Laboratory Tests 12/19/20 12/19/20 12/19/20 22:24 22:28 22:28 WBC 6.1 RBC 3.71 L Hgb 9.8 L Hct 30.5 L MCV 82.2 MCH 26.4 L MCHC 32.1 RDW 15.2 Plt Count 150 L D MPV 9.6 Immature Gran % (Auto) 0.5 H Neut % (Auto) 73.1 H Lymph % (Auto) 10.9 L [place] % (Auto) 12.7 H Eos % (Auto) 2.1 Baso % (Auto) 0.7 Lymph # (Auto) 0.7 L [place] # (Auto) 0.8 Eos # (Auto) 0.1 Baso # (Auto) 0.0 Abs Immat Gran (auto) 0.03 Absolute Neuts (auto) 4.5 Absolute Nucleated RBC 0.000 Nucleated RBC % (auto) 0.0 Smear Tech's Comments VERIFIED PT INR APTT Sodium Potassium Chloride Carbon Dioxide Anion Gap BUN Creatinine Estim Creat Clear Calc Estimated GFR Random Glucose Lactic Acid Calcium Total Bilirubin AST ALT Alkaline Phosphatase Troponin I High Sens B-Natriuretic Peptide 2382 H Total Protein Albumin Lipase COVID-19 (KURT) Negative COVID-19 RollCall (roll.to) Com See Note 12/19/20 12/19/20 12/19/20 22:28 22:28 22:28 WBC RBC Hgb Hct MCV MCH MCHC RDW Plt Count MPV Immature Gran % (Auto) Neut % (Auto) Lymph % (Auto) [place] % (Auto) Eos % (Auto) Baso % (Auto) Lymph # (Auto) [place] # (Auto) Eos # (Auto) Baso # (Auto) Abs Immat Gran (auto) Absolute Neuts (auto) Absolute Nucleated RBC Nucleated RBC % (auto) Smear Tech's Comments PT 27.0 H D INR 2.3 H APTT 44.5 H Sodium 140 Potassium 4.8 Chloride 109 H Carbon Dioxide 22 Anion Gap 14 BUN 22 H D Creatinine 1.25 Estim Creat Clear Calc 50.9 Estimated GFR 57 Random Glucose 117 H Lactic Acid 1.4 Calcium 7.5 L Total Bilirubin 1.2 H AST 23 D ALT 18 Alkaline Phosphatase 99 Troponin I High Sens B-Natriuretic Peptide Total Protein 5.4 L D Albumin 2.7 L D Lipase 20 COVID-19 ([facility]T) COVID-[employer] 12/19/20 12/20/20 12/21/20 22:28 06:03 05:28 WBC 8.5 RBC 3.59 L Hgb 9.4 L Hct 30.0 L MCV 83.6 MCH 26.2 L MCHC 31.3 RDW 15.5 Plt Count 149 L MPV 10.5 Immature Gran % (Auto) 0.5 H Neut % (Auto) 87.4 H Lymph % (Auto) 7.5 L [place] % (Auto) 4.5 Eos % (Auto) 0.0 Baso % (Auto) 0.1 Lymph # (Auto) 0.6 L [place] # (Auto) 0.4 Eos # (Auto) 0.0 Baso # (Auto) 0.0 Abs Immat Gran (auto) 0.04 H Absolute Neuts (auto) 7.5 Absolute Nucleated RBC 0.000 Nucleated RBC % (auto) 0.0 Smear Tech's Comments VERIFIED PT INR APTT Sodium Potassium Chloride Carbon Dioxide Anion Gap BUN Creatinine Estim Creat Clear Calc Estimated GFR Random Glucose Lactic Acid Calcium Total Bilirubin AST ALT Alkaline Phosphatase Troponin I High Sens 25.8 D 15.3 B-Natriuretic Peptide Total Protein Albumin Lipase COVID-19 ([facility]T) COVID-19 Oxyntix 12/21/20 05:28 WBC RBC Hgb Hct MCV MCH MCHC RDW Plt Count MPV Immature Gran % (Auto) Neut % (Auto) Lymph % (Auto) [place] % (Auto) Eos % (Auto) Baso % (Auto) Lymph # (Auto) [place] # (Auto) Eos # (Auto) Baso # (Auto) Abs Immat Gran (auto) Absolute Neuts (auto) Absolute Nucleated RBC Nucleated RBC % (auto) Smear Tech's Comments PT INR APTT Sodium 141 Potassium 5.4 H Chloride 108 Carbon Dioxide 22 Anion Gap 16 BUN 39 H D Creatinine 1.40 Estim Creat Clear Calc 45.4 Estimated GFR 50 Random Glucose 169 H D Lactic Acid Calcium 8.0 L D Total Bilirubin AST ALT Alkaline Phosphatase Troponin I High Sens B-Natriuretic Peptide Total Protein Albumin Lipase COVID-19 ([facility]URT) COVID-19 RollCall (roll.to) Com Preliminary micro results at discharge 12/19/20 22:55 Blood Culture - Preliminary Blood - Venous No growth after 24 hours. 12/19/20 22:53 Blood Culture - Preliminary Blood - Venous No growth after 24 hours. Discharge Plan Discharge Patient Disposition: Home Health Service Referrals: Wilder Murphy MD [Physician] - 1 Week ([employer] will call you with an appointment) Discharge Medications: New (DME) nebulizers Misc See Rx Instructions .ROUTE .MEDSUPPLY Qty: 1 RF: 0 azithromycin 250 mg tablet 250 mg PO DAILY 3 Days Qty: 3 RF: 0 prednisone 20 mg tablet 40 mg PO DAILY Qty: 6 RF: 0 ipratropium-albuterol 0.5 mg-3 mg(2.5 mg base)/3 mL Solution For Nebulization 3 ml inhalation BID-QID 30 Days RF: 2 Continued atorvastatin 40 mg Tablet 40 mg PO BEDTIME RF: 0 ascorbic acid (vitamin C) [Vitamin C] 1,000 mg Tablet 1,000 mg PO DAILY RF: 0 magnesium 500 mg Tablet 500 mg PO BID RF: 0 carvedilol 6.25 mg Tablet 6.25 mg PO BID RF: 0 gabapentin 600 mg Tablet 600 mg PO BEDTIME RF: 0 isosorbide mononitrate 30 mg Tablet Extended Release 24 Hr 30 mg PO DAILY RF: 0 levothyroxine 25 mcg Tablet 25 mcg PO DAILY RF: 0 aspirin 81 mg Tablet 81 mg PO DAILY RF: 0 ergocalciferol (vitamin D2) 1,000 unit Capsule 2,000 unit PO DAILY RF: 0 amiodarone 100 mg Tablet 100 mg PO DAILY RF: 0 Eliquis 5 mg Tablet 5 mg PO BID RF: 0 Entresto 24-26 mg Tablet 1 tab PO BID RF: 0 prednisone 20 mg Tablet 40 mg PO DAILY 3 Days Qty: 6 RF: 0 fluticasone propion-salmeterol [AirDuo RespiClick] 113-14 mcg/actuation aerosol powdr breath activated 1 inh inhalation BID Qty: 1 RF: 0 albuterol sulfate 90 mcg/actuation HFA aerosol inhaler 1 puff inhalation Q4-6H RF: 0 fluticasone propion-salmeterol 232-14 mcg/actuation aerosol powdr breath activated 1 inh inhalation DAILY RF: 0 Changed torsemide 20 mg Tablet 10 mg PO DAILY Qty: 0 RF: 0 Discharge Orders: Discharge Order (Routine); Ordered 12/21/20 Ordered By: Mitch Yen Diet: advance to usual diet Activity on Discharge: As tolerated Stand Alone Forms: Patient Portal Discharge page Care Plan Goals: Read below Health Concerns: Read below Plan of Treatment: You were admitted to the hospital for evaluation of shortness of breath. Treated many for COPD exacerbation with steroids, bronchodilator nebulizers and azithromycin with good response over the hospital stay. You were weaned down the oxygen requirement and shortness of breath improved. You were Evaluated by education liaison who recommended to continue home dose torsemide at time of discharge. To start using nebulizer machine 2 to 4 times a day To follow up with Cardiology as scheduled Continue to monitor your weight
--- NOTE | 2020-12-21 11:40 | MHC.CM.PN ---
Patient has been [id number] cleared for dc to home today; Patient was active with [facility] and they have been notified of today's dc. IMM addressed with Patient this morning.
[2020-12-21 12:00] VITALS: BP 103/56; PULSE 80; RESP 18; TEMP 36.6; O2SAT 94
== END 2020-12-21 13:13 | disposition home health service (06) | DRG 190 ==
LOC: HO.ED 23:48 → HO.EDOVER 12-20 01:03 → HO.IMC 12-20 23:52
PROVIDERS: Admitting Provider Internal Medicine; Emergency Provider Emergency Medicine Emergency Medical Services; PCP Internal Medicine; Visit Provider Student in an Organized Health Care Education/Training Program
DX: J44.1 Chronic obstructive pulmonary disease with (acute) exacerbation (principal); J96.21 Acute and chronic respiratory failure with hypoxia; I13.0 Hypertensive heart and chronic kidney disease with heart failure and stage 1 through stage 4 chronic kidney disease, or unspecified chronic kidney disease; I50.42 Chronic combined systolic (congestive) and diastolic (congestive) heart failure; I25.10 Atherosclerotic heart disease of native coronary artery without angina pectoris; I48.0 Paroxysmal atrial fibrillation; E78.5 Hyperlipidemia, unspecified; Z95.810 Presence of automatic (implantable) cardiac defibrillator; E03.9 Hypothyroidism, unspecified; N18.9 Chronic kidney disease, unspecified; Z87.891 Personal history of nicotine dependence; Z20.822 Contact with and (suspected) exposure to COVID-19; Z79.01 Long term (current) use of anticoagulants; Z79.51 Long term (current) use of inhaled steroids; Z79.82 Long term (current) use of aspirin; Z79.890 Hormone replacement therapy; Z79.899 Other long term (current) drug therapy
CPT/HCPCS: 36415; 71045; 71046; 80048; 80053; 83605; 83690; 83880; 84484; 85025; 85610; 85730; 87040; 87635; 93005; 94640; 96365; 96366; 96367; 96375; 99285; J0456; J0696; J1200; J1940; J2920; J2930

== ENCOUNTER → 2021-01-04 13:40 | Outpatient (BNVA) | payer MEDICARE, SELFPAY | PROVIDERS: PCP Internal Medicine; Visit Provider Family Medicine Adult Medicine | DX: M96.1 Postlaminectomy syndrome, not elsewhere classified (principal); M13.0 Polyarthritis, unspecified | CPT/HCPCS: 99212 ==

== ENCOUNTER → 2021-01-18 09:08 | Outpatient (BNVA) | payer MEDICARE, SELFPAY | PROVIDERS: PCP Internal Medicine; Visit Provider Family Medicine Adult Medicine | DX: M96.1 Postlaminectomy syndrome, not elsewhere classified (principal); M13.0 Polyarthritis, unspecified | CPT/HCPCS: Q3014 ==

== ENCOUNTER 2021-01-26 12:11 | Outpatient (REF) | payer MEDICARE, OTHER, SELFPAY ==
--- NOTE | ~2021-01-26 | CT_ITS ---
EXAMINATION: CT CHEST WITHOUT CONTRAST CLINICAL INFORMATION: COPD. COMPARISON: Chest x-ray 12/21/2020. CT chest 08/10/2020. TECHNIQUE: Multidetector volumetric CT imaging of the chest was done. Axial MIP volume rendering provided. Sagittal and coronal reformatted images were obtained. This CT examination was performed using dose optimization techniques as appropriate, variously including the following: *Automated exposure control *Adjustment of mA and/or kV according to patient size (this includes techniques or standardized protocols for targeted exams where dose is matched to indication/reason for exam; i.e. extremities or head) *Use of iterative reconstruction technique DLP: 373 mGy-cm FINDINGS: VIDEO OPERATOR: Hyperinflated lungs with pacer electrodes in right atrium and right ventricle. LUNGS: The lungs are hyperinflated with interval large and small new patchy ill-defined opacities in both upper lobes most prominent in the posterior segments as well as right lung apex, both lower lobes, lingula, and right middle lobe. Findings are consistent with pneumonitis. MEDIASTINUM: The heart size is within normal limits with dual pacer electrodes in right atrium and right ventricle. There are aortic valvular and coronary artery calcifications. Central trachea and the bronchi are widely patent. The thyroid lobes are symmetrical and normal. There are benign precarinal and pretracheal lymph nodes. No pericardial effusion seen. PLEURA: There are small bilateral effusions, right greater than left. No pleural calcification or thickening seen. AXILLA: No abnormal axillary lymph nodes seen. The chest wall appears unremarkable. UPPER ABDOMEN: Visualized liver, spleen, pancreas, and bilateral adrenal glands are unremarkable. There are no radiopaque gallstones visualized. There are multiple bilateral simple renal cysts. There is a likely proteinaceous exophytic cyst upper/mid pole left kidney axial image 66/8. OSSEOUS STRUCTURES: There are degenerative disc changes and vacuum disc phenomena and lower dorsal spine. No lytic or sclerotic process seen. There is no compression fracture. CT/CT chest wo con IMPRESSION: Drastic lung changes since the last CT 08/10/2020. There are new bilateral pleural effusions, slightly greater on the right. There are new ill-defined interstitial infiltrates in both both lungs with mild interstitial thickening likely sequela of amiodarone pulmonary toxicity. No large mass or consolidation seen.
== END 2021-01-26 12:12 | disposition home or self-care (01) ==
LOC: HO.CT 12:11
PROVIDERS: Visit Provider Internal Medicine
DX: J44.9 Chronic obstructive pulmonary disease, unspecified (principal); I48.0 Paroxysmal atrial fibrillation; Z79.899 Other long term (current) drug therapy
CPT/HCPCS: 71250

== ENCOUNTER → 2021-01-31 13:35 | Outpatient (BNVA) | payer MEDICARE, OTHER, SELFPAY | PROVIDERS: PCP Internal Medicine; Visit Provider Nurse Practitioner Family | DX: Z45.02 Encounter for adjustment and management of automatic implantable cardiac defibrillator (principal); I11.0 Hypertensive heart disease with heart failure; I50.42 Chronic combined systolic (congestive) and diastolic (congestive) heart failure; I25.10 Atherosclerotic heart disease of native coronary artery without angina pectoris; I48.0 Paroxysmal atrial fibrillation; I49.3 Ventricular premature depolarization; I25.5 Ischemic cardiomyopathy; M54.9 Dorsalgia, unspecified; G89.29 Other chronic pain; Z98.890 Other specified postprocedural states; Z95.810 Presence of automatic (implantable) cardiac defibrillator; Z95.818 Presence of other cardiac implants and grafts | CPT/HCPCS: 99212 ==

== ENCOUNTER 2021-02-01 10:05 | Outpatient (REF) | payer MEDICARE, OTHER, SELFPAY ==
[2021-02-01 13:07] LABS: MANUAL DIFF FLAG NO
[2021-02-01 13:20] LABS: Basophils Percent Auto 0.4 % (0-2); Eosinophils Absolute Auto 0.1 X10*3/uL (0.0-0.4); Eosinophils Percent Auto 1.4 % (0-4); Hematocrit 34.2 % (42-52); Hemoglobin 10.4 g/dl (14.0-18.0); Imm Gran Abs Auto 0.05 X10*3/uL (0.00-0.03); Imm Gran Pct Auto 0.6 % (0.0-0.4); Lymphocytes Absolute Auto 1.1 X10*3/uL (1.2-4.9); Lymphocytes Percent Auto 14.6 % (20-40); Mean Corpuscular HGB Conc 30.4 g/dl (31.0-36.0); Mean Corpuscular Hemoglobin 25.9 pg (27.0-33.0); Mean Corpuscular Volume 85.3 fL (80-98); Mean Platelet Volume 10.4 fL (9.4-12.4); Monocytes Absolute Auto 0.6 X10*3/uL (0.1-1.2); Monocytes Percent Auto 7.6 % (2-11); Neutrophils Absolute Auto 5.9 X10*3/uL (2.0-8.3); Neutrophils Percent Auto 75.4 % (45-73); Platelet Count 181 X10*3/uL (160-400); Red Blood Count 4.01 X10*6/uL (4.60-5.80); Red Cell Distribution Width 15.9 % (11.0-16.0); White Blood Count 7.8 X10*3/uL (4.8-10.8)
[2021-02-01 14:05] LABS: B Type Natriuretic Peptide 1118 pg/mL (<100)
[2021-02-01 14:15] LABS: Erythrocyte Sedimentation Rate 25 MM/HR (0-15)
[2021-02-01 14:32] LABS: Alanine Aminotransferase 18 U/L (0-40); Albumin Level 3.4 g/dL (3.5-5.0); Alkaline Phosphatase 102 U/L (39-117); Anion Gap 14 (12-20); Aspartate Amino Transferase 25 U/L (5-37); Blood Urea Nitrogen 24 mg/dL (9-16); Calcium 8.6 mg/dL (8.4-10.2); Carbon Dioxide 25 mmol/L (22-29); Chloride 109 mmol/L (96-108); Estimated Glomerular Filt Rate 40; Glucose Random 111 mg/dL (60-115); Potassium 4.8 mmol/L (3.3-5.1); Sodium 143 mmol/L (135-145); Total Protein 6.4 g/dL (6.5-8.0)
[2021-02-03 01:42] LABS: Immunoglobulin E 90 kU/L (<OR=114)
[2021-02-03 14:02] LABS: Myeloperoxidase Antibody <1.0 AI; Proteinase 3 PR3 Antibodies <1.0 AI
[2021-02-03 14:27] LABS: Anti Nuclear Antibody Screen NEGATIVE (NEGATIVE)
[2021-02-06 17:16] LABS: Asperg fumigatus Precip Abs NEGATIVE (NEGATIVE); Micropoly faeni Abs NEGATIVE (NEGATIVE); Pigeon serum Abs NEGATIVE (NEGATIVE); Saccharo pora viridis Abs NEGATIVE (NEGATIVE); Thermo candidus Abs NEGATIVE (NEGATIVE); Thermoa vulgaris #1 NEGATIVE (NEGATIVE)
== END 2021-02-01 10:06 | disposition home or self-care (01) ==
LOC: HO.LAB 10:05
PROVIDERS: Absent Provider Nurse Practitioner Family; PCP Internal Medicine; Visit Provider Hospitalist
DX: I50.42 Chronic combined systolic (congestive) and diastolic (congestive) heart failure (principal); R91.8 Other nonspecific abnormal finding of lung field; M96.1 Postlaminectomy syndrome, not elsewhere classified; M13.0 Polyarthritis, unspecified; I26.99 Other pulmonary embolism without acute cor pulmonale; J44.9 Chronic obstructive pulmonary disease, unspecified; R04.2 Hemoptysis; J84.9 Interstitial pulmonary disease, unspecified; J96.21 Acute and chronic respiratory failure with hypoxia; Z79.899 Other long term (current) drug therapy; Z87.891 Personal history of nicotine dependence; Z79.01 Long term (current) use of anticoagulants
CPT/HCPCS: 36415; 80053; 82785; 83880; 85025; 85652; 86021; 86038; 86039; 86331; 86606; 86609; 99202; 99212

== ENCOUNTER 2021-02-15 11:59 | Outpatient (REF) | payer MEDICARE, OTHER, SELFPAY ==
--- NOTE | ~2021-02-15 | XR_ITS ---
EXAMINATION: XR CHEST CLINICAL INFORMATION: Other nonspecific abnormal finding of lung field COMPARISON: Previous chest CT most recent 01/26/2021 and chest x-ray most recent November 2020 TECHNIQUE: 2 views of the chest were obtained. FINDINGS: The cardiac silhouette is slightly enlarged but stable. Left subclavian pacemaker defibrillator device that appears unchanged. Hilar and mediastinal contours are unremarkable. There are increased interstitial markings seen in the lungs. This is increased from previous chest x-ray and URI 2020 and not appreciably changed from previous chest CT scan. There are nodular opacities seen in both upper lungs, right greater than left. This appears decreased on the right. This is difficult to compare on the left due to position of pacemaker battery. There is no pleural effusion. There are degenerative changes of the spine. XR/XR chest 2V IMPRESSION: Persistent increased interstitial markings. Bilateral upper lung nodular opacities. These may be slightly improved compared to most recent chest CT scan 01/26/2021.
== END 2021-02-15 12:00 | disposition home or self-care (01) ==
LOC: HO.XRAY 11:59
PROVIDERS: PCP Internal Medicine; Visit Provider Hospitalist
DX: R04.2 Hemoptysis (principal); R91.8 Other nonspecific abnormal finding of lung field
CPT/HCPCS: 71046

== ENCOUNTER → 2021-02-22 13:48 | Outpatient (BNVA) | payer MEDICARE, OTHER, SELFPAY | PROVIDERS: PCP Internal Medicine; Visit Provider Hospitalist | DX: R04.2 Hemoptysis (principal); R91.8 Other nonspecific abnormal finding of lung field; J84.9 Interstitial pulmonary disease, unspecified; J41.8 Mixed simple and mucopurulent chronic bronchitis; Z87.891 Personal history of nicotine dependence; Z79.899 Other long term (current) drug therapy | CPT/HCPCS: 99212 ==

== ENCOUNTER → 2021-02-28 11:23 | Outpatient (BNVA) | payer MEDICARE, OTHER, SELFPAY | PROVIDERS: PCP Internal Medicine; Visit Provider Nurse Practitioner Family | DX: I11.0 Hypertensive heart disease with heart failure (principal); I50.42 Chronic combined systolic (congestive) and diastolic (congestive) heart failure; I25.10 Atherosclerotic heart disease of native coronary artery without angina pectoris; I25.5 Ischemic cardiomyopathy; I48.0 Paroxysmal atrial fibrillation; I49.3 Ventricular premature depolarization; M54.9 Dorsalgia, unspecified; G89.29 Other chronic pain; Z98.890 Other specified postprocedural states; Z95.818 Presence of other cardiac implants and grafts; Z95.810 Presence of automatic (implantable) cardiac defibrillator | CPT/HCPCS: Q3014 ==

== ENCOUNTER → 2021-03-03 13:55 | Outpatient (BNVA) | payer MEDICARE, OTHER, SELFPAY | PROVIDERS: PCP Internal Medicine; Visit Provider Family Medicine Adult Medicine | DX: M13.0 Polyarthritis, unspecified (principal); M96.1 Postlaminectomy syndrome, not elsewhere classified | CPT/HCPCS: 99212 ==

== ENCOUNTER 2021-03-09 04:38 | Emergency (ER) | payer MEDICARE, OTHER, SELFPAY ==
[2021-03-09] VITALS (7 sets, daily range): BP systolic 93–130; BP diastolic 60–80; PULSE 60–92; RESP 16–20; TEMP 36.5; O2SAT 96–100; BMI 30.1
--- NOTE | ~2021-03-09 | XR_ITS ---
EXAMINATION: XR FOOT, LEFT CLINICAL INFORMATION: Fall. Pain. COMPARISON: None TECHNIQUE: AP, lateral, and oblique views of the left foot. FINDINGS: There are fractures of the distal shafts of the second through fifth metatarsal bones. There is mild lateral displacement of the third metatarsal head with respect to the more proximal shaft by 3 mm. The fourth metatarsal fracture appears comminuted. There is question of a nondisplaced fracture of the base of the first metatarsal bone. There is mild arthritis and hallux valgus deformity at the first MTP joint. Joint spaces are otherwise normal. There is soft tissue swelling over the midfoot. There are skin khalida. No radiopaque soft tissue foreign body is seen. XR/XR foot LT min 3V IMPRESSION: Fractures of the distal shafts of the second through fifth metatarsal bones. Question nondisplaced fracture of the base of the first metatarsal bone.
[2021-03-09 06:27] LABS: INTERNATIONAL NORM RATIO 1.4 (0.9-1.1); Prothrombin Time 16.7 SEC (10.8-13.0)
[2021-03-09] MEDS: Acetaminophen 325 MG TABLET 975 MG PO (06:39)
[2021-03-09] MEDS: oxyCODONE HCl Immed Release 5 MG TABLET PO (06:41)
--- NOTE | 2021-03-09 07:11 | ED.WOUNDLAC ---
HPI - Wound/Laceration General Chief Complaint: Wound/Laceration Stated Complaint: LEFT FOOT LAC FROM FALL, ON BLOOD THINNER Time Seen by Provider: 03/09/21 05:46 Source: patient Mode of arrival: EMS History of Present Illness HPI narrative: This is a 76-year-old male who states that he was walking back from the bathroom and tripped causing him to fall and striking his foot against an unknown object. Patient is on anticoagulation and denies head strike or loss of consciousness. Related Data Home Medications Medication Instructions Recorded Confirmed ascorbic acid (vitamin C) [Vitamin 1,000 mg PO DAILY 11/20/20 03/03/21 C] atorvastatin 40 mg PO BEDTIME 11/20/20 03/03/21 carvedilol 6.25 mg PO BID 11/20/20 03/03/21 ergocalciferol (vitamin D2) 2,000 unit PO DAILY 11/20/20 03/03/21 levothyroxine 25 mcg PO DAILY 11/20/20 03/03/21 magnesium 500 mg PO BID 11/20/20 03/03/21 albuterol sulfate 90 mcg/actuation 1 puff INHALATION Q4-6H 12/08/20 03/03/21 aerosol inhaler fluticasone 232 mcg-salmeterol 14 1 inh INHALATION DAILY 12/08/20 03/03/21 mcg/actuation breath activated powdr Previous Rx's Medication Instructions Recorded fluticasone propion-salmeterol 1 inh INHALATION BID #1 ea 11/23/20 [AirDuo RespiClick] ipratropium-albuterol 3 ml INHALATION BID-QID 30 Days ml 12/21/20 nebulizers #1 ea 12/21/20 torsemide 10 mg PO DAILY #0 tab 12/21/20 apixaban 5 mg tablet 5 mg PO BID #180 tab 12/28/20 Entresto 24 mg-26 mg tablet 1 tab PO BID #180 tab NS 01/20/21 gabapentin 600 mg tablet 600 mg PO TID #270 tab 01/28/21 albuterol sulfate 2.0833 mg INHALATION QID PRN #75 ml 03/03/21 oxycodone 15 mg tablet 15 mg PO Q8H PRN 30 Days #90 tab 03/03/21 Allergies Allergy/AdvReac Type Severity Reaction Status Date / Time bee pollen [BEE STINGS] Allergy Severe ANAPHYLAXIS Verified 03/03/21 14:53 ceftriaxone [From Rocephin] Allergy Intermediate Rash Verified 03/03/21 14:53 Review of Systems Review of Systems: Pertinent positives and negatives as stated in HPI 10 point review of systems is otherwise negative. [facility] Past Medical History Source: nursing notes reviewed Medical History Biventricular implantable 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-defibrillator (ICD) in situ CAD (coronary artery disease) Cardiomyopathy CHF (congestive heart failure) Chronic back pain Chronic pulmonary embolism without acute cor pulmonale CKD (chronic kidney disease) Combined systolic and diastolic heart failure COPD (chronic obstructive pulmonary disease) Failed back syndrome, lumbar HLD (hyperlipidemia) HTN (hypertension) Hyperkalemia ICD (implantable 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-defibrillator) in place ILD (interstitial lung disease) Ischemic cardiomyopathy prison current use of amiodarone Paroxysmal atrial fibrillation Polyarthritis Pulmonary nodules PVC (premature ventricular contraction) Surgical History H/O cardiac catheterization (~10/2017) History of ankle surgery History of cardiac pacemaker History of elbow surgery History of eye surgery History of surgery S/P mitral valve clip implantation Family History Family History Father Cancer Mother Cancer Brother Lymph node cancer Skin cancer Sister Diabetes Social History Social History Household Members: Spouse Housing: House Alcohol intake: never Smoking Status: Former smoker Tobacco Type: Cigarette Cigarettes Per Day: 8 Substance Use Type: Marijuana Advance Directives: No service: No Current occupational status: retired Physical Exam Vital Signs: Vital Signs: Last Vital Signs Pulse 60 03/09/21 04:43 Resp 20 03/09/21 04:43 BP 130/80 03/09/21 04:43 Pulse Ox 100 03/09/21 04:43 Body Mass Index 30.1 VITAL SIGNS: Reviewed. GENERAL: Well developed, well nourished, in no acute distress. HEAD: Normocephalic/atraumatic EYES: PERRLA, EOMI NOSE: Nares patent bilateral OROPHARYNX: no oral lesions noted, posterior pharynx clear NECK: Supple, no adenopathy LUNGS: Normal breath sounds. No adventitious sounds or accessory muscle use. SpO2<100> CARDIOVASCULAR: Regular rate and rhythm without noted murmurs ABDOMEN: Soft, non-tender, non-distended with bowel sounds. LEFT FOOT: Extensive superficial laceration to the dorsum of left foot, currently bleeding, as well as laceration across the great toe, and laceration to the medial aspect across the MCP NEUROLOGIC: Alert and oriented x 4. Strength and sensation to light touch were grossly intact x 4. Course Course Course Narrative: This is a 76-year-old male with history and clinical presentation consistent with superficial extensive laceration to the dorsum of left foot, great toe and currently on anticoagulation. Patient will be unable to receive Tdap vaccine at this time secondary to receiving COVID-19 vaccine on 03/02 (recommendations by the company are a 14 day period before/after COVID-19 vaccine). Dressing put in place. Signed out to Dr Castrejon. MDM - Wound/Laceration Lab Data Labs: Lab Results 03/09/21 Range/Units 06:08 PT 16.7 H D (10.8-13.0) SEC INR 1.4 H (0.9-1.1) Discharge Plan Discharge Prescriptions: No Action apixaban [Eliquis] 5 mg tablet 5 mg PO BID Qty: 180 RF: 1 sacubitril-valsartan [Entresto] 24-26 mg tablet 1 tab PO BID Qty: 180 RF: 1 gabapentin 600 mg tablet 600 mg PO TID Qty: 270 RF: 0 albuterol sulfate 2.5 mg /3 mL (0.083 %) solution for nebulization 2.0833 mg inhalation QID PRN (Reason: for wheezing) Qty: 75 RF: 0 atorvastatin 40 mg Tablet 40 mg PO BEDTIME RF: 0 ascorbic acid (vitamin C) [Vitamin C] 1,000 mg Tablet 1,000 mg PO DAILY RF: 0 magnesium 500 mg Tablet 500 mg PO BID RF: 0 carvedilol 6.25 mg Tablet 6.25 mg PO BID RF: 0 levothyroxine 25 mcg Tablet 25 mcg PO DAILY RF: 0 ergocalciferol (vitamin D2) 1,000 unit Capsule 2,000 unit PO DAILY RF: 0 fluticasone propion-salmeterol [AirDuo RespiClick] 113-14 mcg/actuation aerosol powdr breath activated 1 inh inhalation BID Qty: 1 RF: 0 (DME) nebulizers Misc See Rx Instructions .ROUTE .MEDSUPPLY Qty: 1 RF: 0 ipratropium-albuterol 0.5 mg-3 mg(2.5 mg base)/3 mL Solution For Nebulization 3 ml inhalation BID-QID 30 Days RF: 2 torsemide 20 mg Tablet 10 mg PO DAILY Qty: 0 RF: 0 albuterol sulfate 90 mcg/actuation HFA aerosol inhaler 1 puff inhalation Q4-6H RF: 0 fluticasone propion-salmeterol 232-14 mcg/actuation aerosol powdr breath activated 1 inh inhalation DAILY RF: 0 oxycodone 15 mg tablet 15 mg PO Q8H PRN (Reason: pain) 30 Days Qty: 90 RF: 0
[2021-03-09] MEDS: Lidocaine HCl 1% PF/Epi 1:200,000 30 ML VIAL 20 ML INFILTRATI (07:20)
[2021-03-09] MEDS: oxyCODONE HCl Immed Release 15 MG TABLET PO ×2 (08:20→16:05)
--- NOTE | 2021-03-09 08:51 | ED_ITS ---
HPI - General Adult General Chief complaint: Wound/Laceration Stated complaint: LEFT FOOT LAC FROM FALL, ON BLOOD THINNER Time Seen by Provider: 03/09/21 05:46 Source: patient Mode of arrival: EMS Limitations: no limitations History of Present Illness HPI narrative: 76-year-old male who presents emergency department for evaluation of complex laceration to his left foot. The patient states that he has a footdrop. He states that he got up this morning or the bathroom and tripped and fell. He sustained a complex laceration to his foot. He is on warfarin therapy for cardiomyopathy. He states that he bled profusely but was able stop the bleeding with pressure. He was then brought to the emergency department by ambulance. He believes that his last tetanus shot was within 5 years. The patient states that he received a [employer] COVID-19 vaccination within 1 week. Related Data Home Medications Medication Instructions Recorded Confirmed ascorbic acid (vitamin C) [Vitamin 1,000 mg PO DAILY 11/20/20 03/03/21 C] atorvastatin 40 mg PO BEDTIME 11/20/20 03/03/21 carvedilol 6.25 mg PO BID 11/20/20 03/03/21 ergocalciferol (vitamin D2) 2,000 unit PO DAILY 11/20/20 03/03/21 levothyroxine 25 mcg PO DAILY 11/20/20 03/03/21 magnesium 500 mg PO BID 11/20/20 03/03/21 albuterol sulfate 90 mcg/actuation 1 puff INHALATION Q4-6H 12/08/20 03/03/21 aerosol inhaler fluticasone 232 mcg-salmeterol 14 1 inh INHALATION DAILY 12/08/20 03/03/21 mcg/actuation breath activated powdr Previous Rx's Medication Instructions Recorded fluticasone propion-salmeterol 1 inh INHALATION BID #1 ea 11/23/20 [AirDuo RespiClick] ipratropium-albuterol 3 ml INHALATION BID-QID 30 Days ml 12/21/20 nebulizers #1 ea 12/21/20 torsemide 10 mg PO DAILY #0 tab 12/21/20 apixaban 5 mg tablet 5 mg PO BID #180 tab 12/28/20 Entresto 24 mg-26 mg tablet 1 tab PO BID #180 tab NS 01/20/21 gabapentin 600 mg tablet 600 mg PO TID #270 tab 01/28/21 albuterol sulfate 2.0833 mg INHALATION QID PRN #75 ml 03/03/21 oxycodone 15 mg tablet 15 mg PO Q8H PRN 30 Days #90 tab 03/03/21 Allergies Allergy/AdvReac Type Severity Reaction Status Date / Time bee pollen [BEE STINGS] Allergy Severe ANAPHYLAXIS Verified 03/03/21 14:53 ceftriaxone [From Rocephin] Allergy Intermediate Rash Verified 03/03/21 14:53 Review of Systems Review of Systems: Yes all other systems are reviewed and are negative Neurologic: Reports Abnormal speech present PMFSH Past Medical History Source: unable to obtain Medical History Biventricular implantable 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-defibrillator (ICD) in situ CAD (coronary artery disease) Cardiomyopathy CHF (congestive heart failure) Chronic back pain Chronic pulmonary embolism without acute cor pulmonale CKD (chronic kidney disease) Combined systolic and diastolic heart failure COPD (chronic obstructive pulmonary disease) Failed back syndrome, lumbar HLD (hyperlipidemia) HTN (hypertension) Hyperkalemia ICD (implantable 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-defibrillator) in place ILD (interstitial lung disease) Ischemic cardiomyopathy long term current use of amiodarone Paroxysmal atrial fibrillation Polyarthritis Pulmonary nodules PVC (premature ventricular contraction) Surgical History H/O cardiac catheterization (~10/2017) History of ankle surgery History of cardiac pacemaker History of elbow surgery History of eye surgery History of surgery S/P mitral valve clip implantation Family History Family History Father Cancer Mother Cancer Brother Lymph node cancer Skin cancer Sister Diabetes Social History Social History Household Members: Spouse Housing: House Alcohol intake: never Smoking Status: Former smoker Tobacco Type: Cigarette Cigarettes Per Day: 8 Substance Use Type: Marijuana Advance Directives: No service: No Current occupational status: retired Physical Exam Vital Signs: Vital Signs: Last Vital Signs Temp 97.7 F 03/09/21 07:41 Pulse 78 03/09/21 12:00 Resp 18 03/09/21 12:00 BP 111/60 03/09/21 12:00 Pulse Ox 96 03/09/21 12:00 Body Mass Index 30.1 Const: General: cooperative Orientation/consciousness: oriented to person and oriented to place Limitations: no limitations HENMT: Head: Yes normal to inspection, Yes normocephalic and Yes atraumatic Ears: external ears normal General nose exam: Normal external nose present Face and sinus: Yes normal facial exam Mouth: Normal oral and palatal mucosa present Throat: Yes posterior oropharynx normal Eyes: Periorbital: periorbital findings normal Eyelids: Yes eyelids normal Conjunctivae: conjunctivae normal Sclerae: sclerae normal Corneas: corneas normal Pupils: Equal, round and reactive pupils present Direct Ophthalmoscopy: normal light reflex Neck: Neck: Yes full ROM, Yes no lymphadenopathy, Yes no meningeal signs, Yes trachea midline and Yes supple Chest: Chest palpation & inspection: normal inspection of the chest and normal palpation of entire chest wall Resp: Effort & Inspection: normal respiratory effort and able to speak in complete sentences Auscultation: clear to auscultation bilaterally Cardio: Rate: regular rate Rhythm: regular rhythm Heart sounds: S1 normal heart sound present, S2 normal heart sound present and no murmurs GI: Inspection: Yes normal to inspection Palpation (GI): Soft to palpation, nontender, no guarding, not rigid and No hepatosplenomegaly present : General: Yes no CVA tenderness Back/Spine/Pelvis: Back: no CVA tenderness Cervical Spine: normal cervical lordosis Thoracic/Lumbar Spine: thoracic and lumbar spine normal to inspection Skin: Lesions: no lesions Rashes: no rashes Wounds: no wounds Neuro: General: oriented to person, oriented to place and no meningeal signs Cranial nerves: Yes CN's II-XII intact bilaterally and Yes Equal, round and re active pupils present Cognition (Neuro): normal cognition Speech: Abnormal speech present Motor exam (neuro): 5/5 motor strength present throughout Extrem: Other: Left footdrop, complex, Y shaped laceration to the top of the ventral aspect of the foot the 2 Y branches measure 4 in 5 cm, the stem branch measures 6 cm for a total of 15 cm in length. The laceration is widely splayed open with a 3 cm gap between the wound margins. The patient was using blood from multiple sites but there was no active bleeding. There was also a 5 cm laceration to the medial aspect of the foot over the 1st MTP area measuring 5 cm, this was not actively bleeding. Psych: Appearance: well kempt Mental Status: mental status grossly normal Speech and movement: Normal speech and movement present Affect: normal affect Attitude: cooperative Thought process: Normal thought process present Thought content: Normal thought content present Course Course Course Narrative: 76-year-old male with a left footdrop who tripped and fell this morning standing a complex laceration to his left foot requiring suture and staple repair. He also had a skin tear to his left great toe which was repaired with Dermabond. The patient is on wh[place] and his INR was subtherapeutic at 1.4. The patient did receive oxycodone 15 mg orally for his pain. The patient's tetanus status is up-to-date. The patient was discharged home with verbal and printed instructions. 1101: The patient was not able to stand and bear weight secondary to the pain in his right foot. X-rays will be obtained. Case management and PT consult be obtained as well for possible long term facility placement. 1124: The patient's left foot x-ray revealed fractures of the distal shafts of the second through fifth metatarsal bones with a question of a fracture to the base of the 1st metatarsal. I will discuss these findings with the covering orthopedic physician warehouse administrative assistant. I do not think that this was an open fracture however I will give the patient prophylaxis with Ancef 2 g IV. Patient states that he is not allergic to ceftriaxone and does not think that he has ever had a rash with IV antibiotics. 1222: I did discuss the patient's presentation with the orthopedic physician warehouse administrative assistant, Debra Murillo who consult to Dr. Lopez. The patient will be continued on Keflex 500 mg 4 times a day for 5 days prophylactically try to prevent a wound infection. Orthopedics recommended that the patient be placed in a ortho boot so that this can be removed daily for dressing changes and wound check. They want to follow the patient up in the orthopedic office in 7-10 days for re-evaluation. The patient's shabbir and stitches need to be removed in 7- 10 days depending on the healing process. The patient will be transferred to a long term facility for further management. Procedures Laceration Laceration 1: Site: lower extremity (Foot, Y-shaped laceration measuring 15 cm in total length) Side (If applicable): left Size (cm): 15 Description: other (Y shaped) Depth: simple, single layer Local Anesthetic: lidocaine 1% and with epi Amount of anesthesia used (mL): 20 Pre-repair: wound explored and irrigated extensively (500 mL normal saline) Skin layer closed with: nylon Size (cm): 3-0 and other ([place], 21 use) Number of sutures: 5 Technique: simple, interrupted Laceration 2: Site: lower extremity (Foot) Side (If applicable): left Size (cm): 5 Description: linear Depth: simple, single layer Local Anesthetic: lidocaine 1% and with epi Amount of anesthesia used (mL): 5 Skin layer closed with: nylon Size (cm): 3-0 and other (Shabbir x 6) Number of sutures: 3 Laceration 3: Site: lower extremity (Great toe) Side (If applicable): left Size (cm): 3.0 Description: other (V-shaped flap) Depth: simple, single layer Pre-repair: wound explored and irrigated extensively Technique: other (Dermabond) Medical Decision Making Lab Data Labs: Lab Results 03/09/21 Range/Units 06:08 PT 16.7 H D (10.8-13.0) SEC INR 1.4 H (0.9-1.1) Imaging Data Left foot x-ray: Radiologist's impression: [address] [id number] ReportSigned Patient: Norberto Orr [facility]#: [id number]: 1945cct:[id number]/Sex: 76 / MADM Date: 03/09/21Loc: HO.EDAttending Dr: Ordering Physician: Johan Castrejon MD Date of Service: 03/09/21 Procedure(s): XR foot LT min 3V Accession Number(s): [id number] cc: Johan Castrejon MD~ EXAMINATION: XR FOOT, LEFT CLINICAL INFORMATION: Fall. Pain. COMPARISON: None TECHNIQUE: AP, lateral, and oblique views of the left foot. FINDINGS: There are fractures of the distal shafts of the second through fifth metatarsal bones. There is mild lateral displacement of the third metatarsal head with respect to the more proximal shaft by 3 mm. The fourth metatarsal fracture appears comminuted. There is question of a nondisplaced fracture of the base of the first metatarsal bone. There is mild arthritis and hallux valgus deformity at the first MTP joint. Joint spaces are otherwise normal. There is soft tissue swelling over the midfoot. There are skin shabbir. No radiopaque soft tissue foreign body is seen. XR/XR foot LT min 3V IMPRESSION: Fractures of the distal shafts of the second through fifth metatarsal bones. Question nondisplaced fracture of the base of the first metatarsal bone. Dictated By:MAURICE BREAUX MDSigned By:<Electronically signed by MAURICE BREAUX MD in OV>03/09/21 1030 DD/ [id number]/TT: Ap Operator: CALOS Discharge Plan Discharge Clinical Impression: Fall, Laceration of foot, left, Laceration of great toe of left foot, Foot fracture, left Patient Disposition: er [facility] Instructions: Laceration (ED), Skin Adhesive Care (ED) Additional Instructions: You have a total of 28 shabbir and 8 stitches in your 2 lacerations. Your left great toe laceration was repaired with Dermabond skin glue. Apply bacitracin to the shabbir and sutured laceration only, apply this twice a day. Do not apply any bacitracin ointments or lotions to the skin glue. Watch for signs of infection which include increased pain, redness, swelling, drainage of pus, red streaks going away from the wound. If he believes the wound is infected call your doctor return to the emergency department. You fractured your foot and you need to keep the orthopedic boot on into a recheck by the orthopedic doctors. The orthopedic doctor wants to re-evaluate you in the office in 7-10 days. You need to follow-up with your doctor in 7-10 days to have the stitches and shabbir removed. Prescriptions: No Action apixaban [Eliquis] 5 mg tablet 5 mg PO BID Qty: 180 RF: 1 sacubitril-valsartan [Entresto] 24-26 mg tablet 1 tab PO BID Qty: 180 RF: 1 gabapentin 600 mg tablet 600 mg PO TID Qty: 270 RF: 0 albuterol sulfate 2.5 mg /3 mL (0.083 %) solution for nebulization 2.0833 mg inhalation QID PRN (Reason: for wheezing) Qty: 75 RF: 0 atorvastatin 40 mg Tablet 40 mg PO BEDTIME RF: 0 ascorbic acid (vitamin C) [Vitamin C] 1,000 mg Tablet 1,000 mg PO DAILY RF: 0 magnesium 500 mg Tablet 500 mg PO BID RF: 0 carvedilol 6.25 mg Tablet 6.25 mg PO BID RF: 0 levothyroxine 25 mcg Tablet 25 mcg PO DAILY RF: 0 ergocalciferol (vitamin D2) 1,000 unit Capsule 2,000 unit PO DAILY RF: 0 fluticasone propion-salmeterol [AirDuo RespiClick] 113-14 mcg/actuation aerosol powdr breath activated 1 inh inhalation BID Qty: 1 RF: 0 (DME) nebulizers Misc See Rx Instructions .ROUTE .MEDSUPPLY Qty: 1 RF: 0 ipratropium-albuterol 0.5 mg-3 mg(2.5 mg base)/3 mL Solution For Nebulization 3 ml inhalation BID-QID 30 Days RF: 2 torsemide 20 mg Tablet 10 mg PO DAILY Qty: 0 RF: 0 albuterol sulfate 90 mcg/actuation HFA aerosol inhaler 1 puff inhalation Q4-6H RF: 0 fluticasone propion-salmeterol 232-14 mcg/actuation aerosol powdr breath activated 1 inh inhalation DAILY RF: 0 oxycodone 15 mg tablet 15 mg PO Q8H PRN (Reason: pain) 30 Days Qty: 90 RF: 0 Referrals: Peace Lopez MD [Physician] - 10 days (Fall, complex laceration to left foot with fractures of the distal shafts of the second through fifth metatarsal bones. Question nondisplaced fracture of the base of the first metatarsal bone. Placed in ortho boot. Will be managed at [facility]. Needs follow-up in 7-10 day to evaluate fracture and lacerations.)
[2021-03-09] MEDS: Bacitracin Oint 0.9 GM PACKET 1 APPL TOPICAL (10:28)
--- NOTE | 2021-03-09 10:42 | PC.NURSE ---
pt left foot cleansed with NS and sterile gauze, staple and suture sites oozing blood. Bacitracin applied over khalida and incisions. non stick gauze, bulky gauze and gauze roll applied. LLE elevated on pillow for comfort. pt evaluated by P.T. and seen by Case Management for SNF placement.
[2021-03-09] MEDS: Morphine Sulfate 4 MG/ML CARTRIDGE IVPUSH (11:45)
--- NOTE | 2021-03-09 12:06 | PC.NURSE ---
PT TO RECIEVE MORPHINE 4MG IV PER PROVIDER. PROVIDER AWARE OF BP 111/60 ADN RECENT DOSES OF OXYCODONE
[2021-03-09 13:50] LABS: COVID-19 Test Negative (Negative)
--- NOTE | 2021-03-09 14:09 | PC.NURSE ---
pt with nausea and episode of vomiting approx 200cc emesis after lunch. pt offered but refused antiemetic medication.
--- NOTE | 2021-03-09 14:25 | MHC.CM.ED ---
pt has requested to go to [facility] per PT's recomendation. he requested a ref. be made to [facility], this has been done. pt has been accepted and is leaving [facility] [place] at 4 pm. rn and md caring for patient are aware of this dc plan. cm to cont. to follow.
--- NOTE | 2021-03-09 15:55 | PC.NURSE ---
PER MD PLAN TO CHANGE IV MORPHINE TO PO PAIN MANAGEMENT.
--- NOTE | 2021-03-09 16:43 | MHC.CM.ED ---
called about concerns regarding pt d/c to [facility] for rehab and Covid. Spoke to pt regarding 's concerns. Pt stated he is going to rehab and CM can tell her that . States he had his J&J vaccine last Sunday. CM called and spoe to [place]. Reassured her that precautions are taken regarding Covid at [facility] and that pt has some immunity from vaccine now and will have full immunity in 1 week. Also relayed pt wishes that he go to [facility] as recommended by PT. CM gave [place] contact information for [facility], so she can discuss visitation policy and when to bring him some belongings from home. [place] seems reassured.
== END 2021-03-09 16:20 ==
PROVIDERS: Student in an Organized Health Care Education/Training Program; Emergency Provider Emergency Medicine Emergency Medical Services; PCP Internal Medicine
DX: S91.312A Laceration without foreign body, left foot, initial encounter (principal); S92.355B Nondisplaced fracture of fifth metatarsal bone, left foot, initial encounter for open fracture; S92.335B Nondisplaced fracture of third metatarsal bone, left foot, initial encounter for open fracture; S92.345B Nondisplaced fracture of fourth metatarsal bone, left foot, initial encounter for open fracture; S92.325B Nondisplaced fracture of second metatarsal bone, left foot, initial encounter for open fracture; W01.10XA Fall on same level from slipping, tripping and stumbling with subsequent striking against unspecified object, initial encounter; M21.372 Foot drop, left foot; Z20.822 Contact with and (suspected) exposure to COVID-19; I13.0 Hypertensive heart and chronic kidney disease with heart failure and stage 1 through stage 4 chronic kidney disease, or unspecified chronic kidney disease; N18.9 Chronic kidney disease, unspecified; I50.9 Heart failure, unspecified; J44.9 Chronic obstructive pulmonary disease, unspecified; I48.0 Paroxysmal atrial fibrillation; Y93.89 Activity, other specified; Y92.012 Bathroom of single-family (private) house as the place of occurrence of the external cause; Y99.9 Unspecified external cause status; Z95.810 Presence of automatic (implantable) cardiac defibrillator; Z79.01 Long term (current) use of anticoagulants; Z87.891 Personal history of nicotine dependence
CPT/HCPCS: 12004; 12045; 36415; 73630; 85610; 87635; 96374; 96376; 97162; 99284; 99285; J0690; J2270

== ENCOUNTER 2021-03-18 07:48 | Outpatient (REF) | payer MEDICARE, OTHER, SELFPAY ==
--- NOTE | ~2021-03-18 | XR_ITS ---
EXAMINATION: XR FOOT, LEFT CLINICAL INFORMATION: Pain in the left foot. COMPARISON: X-rays of the left foot 03/09/2021 TECHNIQUE: Three views of the left foot. FINDINGS: Skin khalida remain in place overlying the midfoot and forefoot region. Displaced fractures of the 2nd, 3rd and 4th metatarsals are redemonstrated, unchanged in appearance and alignment. No definite callus formation. Possible fracture of the distal 5th metatarsal, unchanged. Probable fracture nondisplaced of the proximal metaphysis of the 1st metatarsal. Small calcification between the proximal 1st and 2nd metatarsals nonspecific. [id number] osteoarthritis of the 1st metatarsophalangeal joint manifested by subchondral cystic change and nonuniform joint space narrowing. Irregular soft tissue swelling along the dorsal aspect of the forefoot. Vascular calcification noted. XR/XR foot LT min 3V IMPRESSION: No change in multiple metatarsal fractures compared with 03/09/2021. 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
== END 2021-03-18 07:49 | disposition home or self-care (01) ==
LOC: HO.HOSX 07:48
PROVIDERS: Visit Provider Physician Assistant
DX: S92.302A Fracture of unspecified metatarsal bone(s), left foot, initial encounter for closed fracture (principal); M79.672 Pain in left foot; S91.312A Laceration without foreign body, left foot, initial encounter
CPT/HCPCS: 73630; 99202

== ENCOUNTER → 2021-03-25 13:02 | Outpatient (BNVA) | payer MEDICARE, OTHER, SELFPAY | PROVIDERS: PCP Internal Medicine; Visit Provider Physician Assistant | DX: S91.319D Laceration without foreign body, unspecified foot, subsequent encounter (principal); S92.309D Fracture of unspecified metatarsal bone(s), unspecified foot, subsequent encounter for fracture with routine healing | CPT/HCPCS: 99212 ==

== ENCOUNTER 2021-04-08 07:54 | Outpatient (REF) | payer MEDICARE, OTHER, SELFPAY ==
--- NOTE | ~2021-04-08 | XR_ITS ---
EXAMINATION: XR FOOT, LEFT CLINICAL INFORMATION: Pain. COMPARISON: None TECHNIQUE: AP, lateral, and oblique views of the left foot. FINDINGS: There are several distal second, third and fourth metatarsal fractures. No other fractures seen. There is mild osteopenia. There is no dislocation. There is moderate dorsal distal foot soft tissue swelling. XR/XR foot LT min 3V IMPRESSION: Displaced second, third and fourth distal metatarsal fractures. Moderate dorsal distal foot soft tissue swelling.
--- NOTE | ~2021-04-08 | XR_ITS ---
EXAMINATION: CR CHEST CLINICAL INFORMATION: Interstitial pulmonary disease, unspecified. COMPARISON: Chest x-ray dated 02/15/2021 and older exams. TECHNIQUE: 2 views of the chest were obtained. FINDINGS: Right atrial and right ventricular pacer leads and right ventricular ICD lead again seen in place, unchanged. Cardiomediastinal silhouette is borderline enlarged. Calcification of the aortic arch is noted. Lungs bilaterally are symmetrically expanded and again demonstrate diffuse reticular prominence without significant central vascular congestion or peripheral Juliane B lines. No pleural effusion is noted. Findings are consistent with patient's history of interstitial lung disease. The previously seen superimposed bilateral upper lobe and nodular infiltrates have resolved. No pneumothorax. Upper lumbar spine bony fusion hardware is partially included. Degenerative changes in the AC joints bilaterally noted. XR/XR chest 2V IMPRESSION: Resolution of previously seen bilateral upper lobe nodular infiltrates. Underlying diffuse interstitial lung disease again noted, similar to prior exams.
== END 2021-04-08 07:55 | disposition home or self-care (01) ==
LOC: HO.HOSX 07:54
PROVIDERS: Absent Provider Hospitalist; PCP Internal Medicine; Visit Provider Physician Assistant
DX: S91.312D Laceration without foreign body, left foot, subsequent encounter (principal); S92.322D Displaced fracture of second metatarsal bone, left foot, subsequent encounter for fracture with routine healing; S92.332D Displaced fracture of third metatarsal bone, left foot, subsequent encounter for fracture with routine healing; S92.342D Displaced fracture of fourth metatarsal bone, left foot, subsequent encounter for fracture with routine healing; J84.9 Interstitial pulmonary disease, unspecified
CPT/HCPCS: 71046; 73630; 99212

== ENCOUNTER → 2021-04-12 11:48 | Outpatient (BNVA) | payer MEDICARE, OTHER, SELFPAY | PROVIDERS: PCP Internal Medicine; Visit Provider Nurse Practitioner Family | DX: I50.42 Chronic combined systolic (congestive) and diastolic (congestive) heart failure (principal); I25.10 Atherosclerotic heart disease of native coronary artery without angina pectoris; I25.5 Ischemic cardiomyopathy; I48.0 Paroxysmal atrial fibrillation; I10 Essential (primary) hypertension; M54.9 Dorsalgia, unspecified; G89.29 Other chronic pain; I49.3 Ventricular premature depolarization; Z98.890 Other specified postprocedural states; Z95.818 Presence of other cardiac implants and grafts; Z95.810 Presence of automatic (implantable) cardiac defibrillator | CPT/HCPCS: Q3014 ==

== ENCOUNTER → 2021-04-14 09:35 | Outpatient (BNVA) | payer MEDICARE, OTHER, SELFPAY | PROVIDERS: PCP Internal Medicine; Visit Provider Family Medicine Adult Medicine | DX: M96.1 Postlaminectomy syndrome, not elsewhere classified (principal); M13.0 Polyarthritis, unspecified | CPT/HCPCS: 99212 ==

== ENCOUNTER → 2021-04-21 12:47 | Outpatient (BNVA) | payer MEDICARE, OTHER, SELFPAY | PROVIDERS: PCP Internal Medicine; Visit Provider Hospitalist | DX: J84.9 Interstitial pulmonary disease, unspecified (principal); R91.8 Other nonspecific abnormal finding of lung field; I27.82 Chronic pulmonary embolism | CPT/HCPCS: 99212 ==

== ENCOUNTER → 2021-05-11 09:25 | Outpatient (BNVA) | payer MEDICARE, OTHER, SELFPAY | PROVIDERS: PCP Internal Medicine; Visit Provider Physician Assistant | DX: M84.375D Stress fracture, left foot, subsequent encounter for fracture with routine healing (principal) | CPT/HCPCS: 99212 ==

== ENCOUNTER → 2021-05-13 08:25 | Outpatient (BNVA) | payer MEDICARE, OTHER, SELFPAY | PROVIDERS: PCP Internal Medicine; Visit Provider Nurse Practitioner Family | DX: M96.1 Postlaminectomy syndrome, not elsewhere classified (principal); M13.0 Polyarthritis, unspecified | CPT/HCPCS: 99212 ==

== ENCOUNTER 2021-05-16 22:14 | Inpatient (IN) | payer MEDICARE, OTHER, SELFPAY ==
--- NOTE | ~2021-05-16 | XR_ITS ---
EXAMINATION: XR CHEST CLINICAL INFORMATION: Shortness of breath COMPARISON: Chest x-ray 04/08/2021, 12/21/2020 TECHNIQUE: Frontal portable view of the chest was obtained. 10:43 PM FINDINGS: No change in position of pacemaker leads in the right atrium, right ventricle and coronary sinus. Cardiac mediastinal contours unchanged. There is significant increase in the pulmonary vascular congestion and interstitial edema since prior chest x-ray 04/08/2021. No dense consolidation. No large pleural effusions. There is no pneumothorax. XR/XR chest 1V IMPRESSION: Increased pulmonary vascular congestion and interstitial edema since prior study of 04/08/2021
[2021-05-16 22:15] VITALS: BP 188/94; PULSE 88; RESP 40; TEMP 36.8; O2SAT 95; BMI 27.6
--- NOTE | 2021-05-16 22:23 | ED.SOB ---
HPI - SOB/Dyspnea General Chief Complaint: Dyspnea Stated Complaint: sob Time Seen by Provider: 05/16/21 22:23 Source: patient Mode of arrival: EMS History of Present Illness HPI Narrative: 76-year-old male with multiple comorbidities a brought in pick via EMS for shortness of breath after his called them. On review of his MOLST it is noted that he is DNR/DNI/and does not want noninvasive intervention. Nursing staff then notified me that patient is now agreeable for noninvasive respiratory support. When I went in and asked the patient again, he states that he would like non-invasive oxygen support. Patient denies chest pain/palpitations and denies any recent fever, chills, abdominal pain, diarrhea, urinary pain/burning/frequency. Related Data Home Medications Medication Instructions Recorded Confirmed ascorbic acid (vitamin C) [Vitamin 1,000 mg PO DAILY 11/20/20 05/13/21 C] carvedilol 6.25 mg PO BID 11/20/20 05/13/21 ergocalciferol (vitamin D2) 2,000 unit PO DAILY 11/20/20 05/13/21 magnesium 500 mg PO BID 11/20/20 05/13/21 albuterol sulfate 90 mcg/actuation 1 puff INHALATION Q4-6H 12/08/20 05/13/21 aerosol inhaler Previous Rx's Medication Instructions Recorded fluticasone propion-salmeterol 1 inh INHALATION BID #1 ea 11/23/20 [AirDuo RespiClick] nebulizers #1 ea 12/21/20 torsemide 10 mg PO DAILY #0 tab 12/21/20 apixaban 5 mg tablet 5 mg PO BID #180 tab 12/28/20 Entresto 24 mg-26 mg tablet 1 tab PO BID #180 tab NS 01/20/21 gabapentin 600 mg tablet 600 mg PO TID #270 tab 01/28/21 ipratropium 0.5 mg-albuterol 3 mg 3 ml INHALATION BID-QID 30 Days 03/24/21 (2.5 mg base)/3 mL nebulization #180 ml soln levothyroxine 25 mcg tablet 25 mcg PO DAILY #90 tab 04/14/21 atorvastatin 40 mg tablet 40 mg PO BEDTIME #90 tab 04/27/21 naloxone 4 mg/actuation nasal spray 4 mg INTRANASAL Q2M #2 ea 05/13/21 oxycodone 15 mg tablet 15 mg PO Q8H PRN 30 Days #90 tab 05/13/21 albuterol sulfate 2.0833 mg INHALATION QID PRN #75 ml 05/14/21 Allergies Allergy/AdvReac Type Severity Reaction Status Date / Time bee pollen [BEE STINGS] Allergy Severe ANAPHYLAXIS Verified 05/13/21 09:04 Review of Systems Review of Systems: Pertinent positives and negatives as stated in HPI 10 point review of systems is otherwise negative. [facility] Past Medical History Source: nursing notes reviewed Medical History Biventricular implantable 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-defibrillator (ICD) in situ CAD (coronary artery disease) Cardiomyopathy CHF (congestive heart failure) Chronic back pain Chronic pulmonary embolism without acute cor pulmonale CKD (chronic kidney disease) Combined systolic and diastolic heart failure COPD (chronic obstructive pulmonary disease) Failed back syndrome, lumbar HLD (hyperlipidemia) HTN (hypertension) Hyperkalemia ICD (implantable 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-defibrillator) in place ILD (interstitial lung disease) Ischemic cardiomyopathy skilled nursing current use of amiodarone Paroxysmal atrial fibrillation Polyarthritis Pulmonary nodules PVC (premature ventricular contraction) Surgical History H/O cardiac catheterization (~10/2017) History of ankle surgery History of cardiac pacemaker History of elbow surgery History of eye surgery History of surgery S/P mitral valve clip implantation Family History Family History Father Cancer Mother Cancer Brother Lymph node cancer Skin cancer Sister Diabetes Social History Social History Household Members: Spouse Housing: House Alcohol intake: unknown Patient Tobacco Use Status: Tobacco use Unknown Cigarettes Per Day: 8 Use of substances other than those prescribed or required for medical reasons: Unknown Substance Use Type: Marijuana Advance Directives: No service: No Current occupational status: retired Current occupation: right handed Physical Exam Vital Signs: Vital Signs: Last Vital Signs Temp 98.8 F 05/17/21 05:07 Pulse 81 05/17/21 05:07 Resp 17 05/17/21 05:07 BP 114/60 05/17/21 05:07 Pulse Ox 96 05/17/21 05:07 Body Mass Index 27.6 VITAL SIGNS: Reviewed. GENERAL: Well developed, well nourished, in no acute distress. HEAD: Normocephalic/atraumatic EYES: PERRLA, EOMI NOSE: Nares patent bilateral OROPHARYNX: no oral lesions noted, posterior pharynx clear LUNGS: Decreased breath sounds bilaterally, coarse rales, scattered rhonchi, tachypnea, increased work of breathing with retractions. SpO2<97> CARDIOVASCULAR: Paced, tachycardia without noted murmurs, no JVD or but 1+ lower extremity edema. ABDOMEN: Soft, non-tender, non-distended with bowel sounds. No rigidity. No guarding. No palpable masses or hernias noted MUSCULOSKELETAL: No tenderness, deformities, or effusions noted on gross inspection. EXTREMITIES: No cyanosis, clubbing or edema. SKIN: Inspection of the skin reveals poor skin color, diaphoresis NEUROLOGIC: Alert and oriented x 4. Course Course Course Narrative: 76-year-old male with history and clinical presentation consistent with acute hypoxic respiratory failure with supplemental oxygen of 100% non-rebreather in place. On review of investigations patient noted to be in acute severe heart failure with pulmonary edema and started on BiPAP, as well as being given Lasix, nitro paste. In addition, patient received Ativan and on re-evaluation patient begins to improve in respiratory status, but still required placement on nitro drip with good control blood pressure as well as significant improvement in respiratory status. On review of high sensitivity troponin as well as EKG there are no significant findings to suggest acute ischemic etiology. And although there is a leukocytosis this is felt to be reactive and the elevated lactate secondary to hypoxia secondary to severe heart failure. 0425: Will attempt to titrate down BiPAP, nitro drip has been stopped, minimal response to Lasix in urine output. After patient able to be titrated off of BiPAP and currently oxygenating well on 4 L of nasal cannula, nitro drip has been stopped and patient is hemodynamically stable and respiratory status is significantly improved. I discussed this case with inpatient hospitalist who is agreeable for admission. Reevaluation(s) Reevaluation #1: I discussed the case with Dr Mcbride regarding poor UO, cool extremities, and concerns for a component of cardiogenic shock but advised that as patient is not hypotensive and respiratory rate is improving does not require dobutamine at this time. Time: 01:35 MDM - SOB/Dyspnea Lab Data Result diagrams: 05/16/21 22:46 05/17/21 02:23 Labs: Lab Results 05/16/21 05/16/21 05/16/21 Range/Units 22:46 22:46 22:46 WBC 13.9 H (4.8-10.8) X10*3/uL RBC 4.77 (4.60-5.80) X10*6/uL Hgb 10.8 L (14.0-18.0) g/dl Hct 36.8 L (42-52) % MCV 77.1 L (80-98) fL MCH 22.6 L (27.0-33.0) pg MCHC 29.3 L (31.0-36.0) g/dl RDW 17.2 H (11.0-16.0) % Plt Count 196 (160-400) X10*3/uL MPV 10.6 (9.4-12.4) fL Immature Gran % (Auto) 0.4 (0.0-0.4) % Neut % (Auto) 62.9 (45-73) % Lymph % (Auto) 26.2 (20-40) % [place] % (Auto) 8.4 (2-11) % Eos % (Auto) 1.7 (0-4) % Baso % (Auto) 0.4 (0-2) % Lymph # (Auto) 3.6 (1.2-4.9) X10*3/uL [place] # (Auto) 1.2 (0.1-1.2) X10*3/uL Eos # (Auto) 0.2 (0.0-0.4) X10*3/uL Baso # (Auto) 0.1 (0.0-0.2) X10*3/uL Abs Immat Gran (auto) 0.06 H (0.00-0.03) X10*3/uL Absolute Neuts (auto) 8.7 H (2.0-8.3) X10*3/uL Absolute Nucleated RBC 0.000 (0.0-0.012) X10*3/uL Nucleated RBC % (auto) 0.0 (0.0-0.2) /100WBC PT (10.8-13.0) SEC INR (0.9-1.1) Sodium 142 (135-145) mmol/L Potassium 4.7 (3.3-5.1) mmol/L Chloride 107 (96-108) mmol/L Carbon Dioxide 21 L (22-29) mmol/L Anion Gap 19 (12-20) BUN 26 H (9-16) mg/dL Creatinine 1.95 H (0.5-1.4) mg/dL Estim Creat Clear Calc 35.3 Estimated GFR 34 Random Glucose 247 H D (60-115) mg/dL Lactic Acid (0.5-2.0) mmol/L Lactic Acid Fup @ 2Hr (0.5-2.0) mmol/L Calcium 8.8 (8.4-10.2) mg/dL Total Bilirubin 1.0 (0.0-1.0) mg/dL AST 26 (5-37) U/L ALT 19 (0-40) U/L Alkaline Phosphatase 95 (39-117) U/L Troponin I High Sens 21.2 (<3.5-35.0) ng/L B-Natriuretic Peptide 3221 H (<100) pg/mL Total Protein 6.9 (6.5-8.0) g/dL Albumin 3.8 (3.5-5.0) g/dL Urine Color Urine Appearance Urine pH (5.0-8.0) Ur Specific [place] (1.005-1.025) Urine Protein (NEG-TRACE) MG/DL Urine Glucose (UA) (NEG) MG/DL Urine Ketones (NEG) MG/DL Urine Blood (NEG) Urine Nitrite (NEG) Ur Leukocyte Esterase (NEG) Urine RBC (0) /HPF Urine WBC (0-4) /HPF Ur Squamous Epith Cells /LPF Ur Renal Epithelial Cell /LPF Amorphous Sediment /LPF Urine Bacteria /LPF Hyaline Casts /LPF Granular Casts /LPF Urine Mucus /LPF COVID-19 ([facility]) (Negative) COVID-19 Clin Com 05/16/21 05/16/21 05/16/21 Range/Units 22:46 22:46 23:57 WBC (4.8-10.8) X10*3/uL RBC (4.60-5.80) X10*6/uL Hgb (14.0-18.0) g/dl Hct (42-52) % MCV (80-98) fL MCH (27.0-33.0) pg MCHC (31.0-36.0) g/dl RDW (11.0-16.0) % Plt Count (160-400) X10*3/uL MPV (9.4-12.4) fL Immature Gran % (Auto) (0.0-0.4) % Neut % (Auto) (45-73) % Lymph % (Auto) (20-40) % [place] % (Auto) (2-11) % Eos % (Auto) (0-4) % Baso % (Auto) (0-2) % Lymph # (Auto) (1.2-4.9) X10*3/uL [place] # (Auto) (0.1-1.2) X10*3/uL Eos # (Auto) (0.0-0.4) X10*3/uL Baso # (Auto) (0.0-0.2) X10*3/uL Abs Immat Gran (auto) (0.00-0.03) X10*3/uL Absolute Neuts (auto) (2.0-8.3) X10*3/uL Absolute Nucleated RBC (0.0-0.012) X10*3/uL Nucleated RBC % (auto) (0.0-0.2) /100WBC PT 20.7 H D (10.8-13.0) SEC INR 1.7 H (0.9-1.1) Sodium (135-145) mmol/L Potassium (3.3-5.1) mmol/L Chloride (96-108) mmol/L Carbon Dioxide (22-29) mmol/L Anion Gap (12-20) BUN (9-16) mg/dL Creatinine (0.5-1.4) mg/dL Estim Creat Clear Calc Estimated GFR Random Glucose (60-115) mg/dL Lactic Acid 3.6 H* (0.5-2.0) mmol/L Lactic Acid Fup @ 2Hr (0.5-2.0) mmol/L Calcium (8.4-10.2) mg/dL Total Bilirubin (0.0-1.0) mg/dL AST (5-37) U/L ALT (0-40) U/L Alkaline Phosphatase (39-117) U/L Troponin I High Sens (<3.5-35.0) ng/L B-Natriuretic Peptide (<100) pg/mL Total Protein (6.5-8.0) g/dL Albumin (3.5-5.0) g/dL Urine Color Urine Appearance Urine pH (5.0-8.0) Ur Specific [place] (1.005-1.025) Urine Protein (NEG-TRACE) MG/DL Urine Glucose (UA) (NEG) MG/DL Urine Ketones (NEG) MG/DL Urine Blood (NEG) Urine Nitrite (NEG) Ur Leukocyte Esterase (NEG) Urine RBC (0) /HPF Urine WBC (0-4) /HPF Ur Squamous Epith Cells /LPF Ur Renal Epithelial Cell /LPF Amorphous Sediment /LPF Urine Bacteria /LPF Hyaline Casts /LPF Granular Casts /LPF Urine Mucus /LPF COVID-19 ([facility]) Negative (Negative) COVID-19 Clin Com See Note 05/17/21 05/17/21 05/17/21 Range/Units 01:45 02:23 02:23 WBC (4.8-10.8) X10*3/uL RBC (4.60-5.80) X10*6/uL Hgb (14.0-18.0) g/dl Hct (42-52) % MCV (80-98) fL MCH (27.0-33.0) pg MCHC (31.0-36.0) g/dl RDW (11.0-16.0) % Plt Count (160-400) X10*3/uL MPV (9.4-12.4) fL Immature Gran % (Auto) (0.0-0.4) % Neut % (Auto) (45-73) % Lymph % (Auto) (20-40) % [place] % (Auto) (2-11) % Eos % (Auto) (0-4) % Baso % (Auto) (0-2) % Lymph # (Auto) (1.2-4.9) X10*3/uL [place] # (Auto) (0.1-1.2) X10*3/uL Eos # (Auto) (0.0-0.4) X10*3/uL Baso # (Auto) (0.0-0.2) X10*3/uL Abs Immat Gran (auto) (0.00-0.03) X10*3/uL Absolute Neuts (auto) (2.0-8.3) X10*3/uL Absolute Nucleated RBC (0.0-0.012) X10*3/uL Nucleated RBC % (auto) (0.0-0.2) /100WBC PT (10.8-13.0) SEC INR (0.9-1.1) Sodium 144 (135-145) mmol/L Potassium 4.4 (3.3-5.1) mmol/L Chloride 109 H (96-108) mmol/L Carbon Dioxide 24 (22-29) mmol/L Anion Gap 15 (12-20) BUN 30 H (9-16) mg/dL Creatinine 1.97 H (0.5-1.4) mg/dL Estim Creat Clear Calc 35.0 Estimated GFR 33 Random Glucose 161 H (60-115) mg/dL Lactic Acid (0.5-2.0) mmol/L Lactic Acid Fup @ 2Hr 1.8 (0.5-2.0) mmol/L Calcium 8.7 (8.4-10.2) mg/dL Total Bilirubin 1.3 H (0.0-1.0) mg/dL AST 23 (5-37) U/L ALT 19 (0-40) U/L Alkaline Phosphatase 89 (39-117) U/L Troponin I High Sens (<3.5-35.0) ng/L B-Natriuretic Peptide (<100) pg/mL Total Protein 6.7 (6.5-8.0) g/dL Albumin 3.6 (3.5-5.0) g/dL Urine Color YELLOW Urine Appearance CLEAR Urine pH 7.5 (5.0-8.0) Ur Specific [place] 1.020 (1.005-1.025) Urine Protein 2+ H (NEG-TRACE) MG/DL Urine Glucose (UA) NEG (NEG) MG/DL Urine Ketones NEG (NEG) MG/DL Urine Blood 2+ H (NEG) Urine Nitrite NEG (NEG) Ur Leukocyte Esterase NEG (NEG) Urine RBC 30-49 H (0) /HPF Urine WBC 0-2 (0-4) /HPF Ur Squamous Epith Cells 1+ /LPF Ur Renal Epithelial Cell 1+ /LPF Amorphous Sediment 1+ /LPF Urine Bacteria NONE /LPF Hyaline Casts 0-2 /LPF Granular Casts 0-2 /LPF Urine Mucus 1+ /LPF COVID-19 ([facility]) (Negative) COVID-19 Clin Com 05/17/21 Range/Units 02:23 WBC (4.8-10.8) X10*3/uL RBC (4.60-5.80) X10*6/uL Hgb (14.0-18.0) g/dl Hct (42-52) % MCV (80-98) fL MCH (27.0-33.0) pg MCHC (31.0-36.0) g/dl RDW (11.0-16.0) % Plt Count (160-400) X10*3/uL MPV (9.4-12.4) fL Immature Gran % (Auto) (0.0-0.4) % Neut % (Auto) (45-73) % Lymph % (Auto) (20-40) % [place] % (Auto) (2-11) % Eos % (Auto) (0-4) % Baso % (Auto) (0-2) % Lymph # (Auto) (1.2-4.9) X10*3/uL [place] # (Auto) (0.1-1.2) X10*3/uL Eos # (Auto) (0.0-0.4) X10*3/uL Baso # (Auto) (0.0-0.2) X10*3/uL Abs Immat Gran (auto) (0.00-0.03) X10*3/uL Absolute Neuts (auto) (2.0-8.3) X10*3/uL Absolute Nucleated RBC (0.0-0.012) X10*3/uL Nucleated RBC % (auto) (0.0-0.2) /100WBC PT (10.8-13.0) SEC INR (0.9-1.1) Sodium (135-145) mmol/L Potassium (3.3-5.1) mmol/L Chloride (96-108) mmol/L Carbon Dioxide (22-29) mmol/L Anion Gap (12-20) BUN (9-16) mg/dL Creatinine (0.5-1.4) mg/dL Estim Creat Clear Calc Estimated GFR Random Glucose (60-115) mg/dL Lactic Acid (0.5-2.0) mmol/L Lactic Acid Fup @ 2Hr (0.5-2.0) mmol/L Calcium (8.4-10.2) mg/dL Total Bilirubin (0.0-1.0) mg/dL AST (5-37) U/L ALT (0-40) U/L Alkaline Phosphatase (39-117) U/L Troponin I High Sens 107.6 H* D (<3.5-35.0) ng/L B-Natriuretic Peptide (<100) pg/mL Total Protein (6.5-8.0) g/dL Albumin (3.5-5.0) g/dL Urine Color Urine Appearance Urine pH (5.0-8.0) Ur Specific [place] (1.005-1.025) Urine Protein (NEG-TRACE) MG/DL Urine Glucose (UA) (NEG) MG/DL Urine Ketones (NEG) MG/DL Urine Blood (NEG) Urine Nitrite (NEG) Ur Leukocyte Esterase (NEG) Urine RBC (0) /HPF Urine WBC (0-4) /HPF Ur Squamous Epith Cells /LPF Ur Renal Epithelial Cell /LPF Amorphous Sediment /LPF Urine Bacteria /LPF Hyaline Casts /LPF Granular Casts /LPF Urine Mucus /LPF COVID-19 ([facility]) (Negative) COVID-19 Clin Com Discharge Plan Discharge Clinical Impression: Acute respiratory failure with hypoxia, CHF exacerbation Patient Disposition: Admitted As Inpatient
[2021-05-16] MEDS: LORazepam 2 MG/ML VIAL 0.5 MG IVPUSH ×2 (22:30→22:34)
--- NOTE | 2021-05-16 22:34 | ECG_ITS ---
Test Reason : DIFFICULTY BREATHING Blood Pressure : / mmHG Vent. Rate : 128 BPM Atrial Rate : 028 BPM P-R Int : 000 ms QRS Dur : 088 ms QT Int : 292 ms P-R-T Axes : 000 187 027 degrees QTc Int : 426 ms Poor data quality Undetermined rhythm V-paced rhythm Abnormal ECG When compared with ECG of 19-DEC-2020 20:14, Current undetermined rhythm precludes rhythm comparison, needs review Poor data quality Referred By: Renee Nj Electronically Signed By:Sivakumar Mcbride
[2021-05-16] MEDS: Furosemide 100 MG/10 ML VIAL 80 MG IVPUSH (22:38)
[2021-05-16] MEDS: Nitroglycerin 2 % Oint 1 GM Packet 1 INCH TRANSDERMA (22:38)
--- NOTE | 2021-05-16 22:39 | PC.NURSE ---
EMS REPORTS PT WAS AT HOME, CALLED EMS. PT COMPLAINT OF DYSPNEA X 2-3 HOURS. PT GROSSLY DIAPHORETIC WITH RR40. EMS REPORTS SPO2 AT HOME OF 79% ON 3 LPM, THEY WERE ABLE TO IMPROVE SPO2 TO 100% ON 15 LPM NRB MASK. UPON ARRIVAL TO HOSPITAL, PT IN HEAVY RESPIRATORY DISTRESS. PT HAS A MOLST FORM THAT SPECIFIES DNR/DNI. PT INITIALLY REFUSED BIPAP FROM PROVIDER. PT PLACED ON NEB MASK WITH ALBUTEROL, BUT COULD NOT TOLERATE. PT STATED PLEASE HELP ME BREATH. PROVIDER BACK AT BEDSIDE AND PT AGREED TO BIPAP. BIPAP PLACED ON PT BY RN AND PROVIDER, RT ON 4TH FLOOR CODE BLUE AND NOT IMMEDIATELY AVAILABLE. PT COMFORTABLE ON BIPAP MASK, RR IMPROVED TO 16/MIN AND PT REPORTS HIS BREATHING IS BETTER. PT NO LONGER SWEATING.
[2021-05-16 22:52] LABS: MANUAL DIFF FLAG NO
[2021-05-16 22:53] LABS: Basophils Absolute Auto 0.1 X10*3/uL (0.0-0.2); Basophils Percent Auto 0.4 % (0-2); Eosinophils Absolute Auto 0.2 X10*3/uL (0.0-0.4); Eosinophils Percent Auto 1.7 % (0-4); Hematocrit 36.8 % (42-52); Hemoglobin 10.8 g/dl (14.0-18.0); Imm Gran Abs Auto 0.06 X10*3/uL (0.00-0.03); Imm Gran Pct Auto 0.4 % (0.0-0.4); Lymphocytes Absolute Auto 3.6 X10*3/uL (1.2-4.9); Lymphocytes Percent Auto 26.2 % (20-40); Mean Corpuscular HGB Conc 29.3 g/dl (31.0-36.0); Mean Corpuscular Hemoglobin 22.6 pg (27.0-33.0); Mean Corpuscular Volume 77.1 fL (80-98); Mean Platelet Volume 10.6 fL (9.4-12.4); Monocytes Absolute Auto 1.2 X10*3/uL (0.1-1.2); Monocytes Percent Auto 8.4 % (2-11); Neutrophils Absolute Auto 8.7 X10*3/uL (2.0-8.3); Neutrophils Percent Auto 62.9 % (45-73); Platelet Count 196 X10*3/uL (160-400); Red Blood Count 4.77 X10*6/uL (4.60-5.80); Red Cell Distribution Width 17.2 % (11.0-16.0); White Blood Count 13.9 X10*3/uL (4.8-10.8)
[2021-05-16 22:58] LABS: INTERNATIONAL NORM RATIO 1.7 (0.9-1.1); Prothrombin Time 20.7 SEC (10.8-13.0)
[2021-05-16 23:05] LABS: COVID-19 Test Negative (Negative)
[2021-05-16 23:15] LABS: Alanine Aminotransferase 19 U/L (0-40); Albumin Level 3.8 g/dL (3.5-5.0); Alkaline Phosphatase 95 U/L (39-117); Anion Gap 19 (12-20); Aspartate Amino Transferase 26 U/L (5-37); Blood Urea Nitrogen 26 mg/dL (9-16); Calcium 8.8 mg/dL (8.4-10.2); Carbon Dioxide 21 mmol/L (22-29); Chloride 107 mmol/L (96-108); Creatinine Clr Calc Pharmacy 35.3; Estimated Glomerular Filt Rate 34; Glucose Random 247 mg/dL (60-115); Potassium 4.7 mmol/L (3.3-5.1); Sodium 142 mmol/L (135-145); Total Protein 6.9 g/dL (6.5-8.0)
--- NOTE | 2021-05-16 23:20 | PC.NURSE ---
PT BEGAN EXPERIENCING INCREASED DYSPNEA, RR 30 AND SKIN COOL AND WET. PT WAS GIVEN 0.5 MG ATIVAN, MD [place]BY CAME TO BEDSIDE PER RN RQUEST. PT'S CHEST XRAY SHOWS PULMONARY CONGESTION. PT GIVEN 1INCH NITRO PASTE AND 80 MG LASIX PER VERBAL ORDERS FROM MD WILLOUGHBY.
[2021-05-16 23:21] LABS: B Type Natriuretic Peptide 3221 pg/mL (<100)
[2021-05-16 23:22] VITALS: BP 182/76; PULSE 115; RESP 37; O2SAT 100
[2021-05-16 23:50] VITALS: BP 198/74; PULSE 111; RESP 25; TEMP 37.2; O2SAT 83
[2021-05-17] VITALS (20 sets, daily range): BP systolic 95–181; BP diastolic 49–90; PULSE 70–104; RESP 10–26; TEMP 36.3–37.7; O2SAT 91–99
[2021-05-17 00:03] LABS: Troponin-I High Sensitivity 21.2 ng/L (<3.5-35.0)
[2021-05-17] MEDS: Furosemide 20 MG/2 ML VIAL IVPUSH (00:16)
[2021-05-17] MEDS: Nitroglycerin/D5W 100 MG/250 ML INFUS..BTL IVCONT (00:17)
[2021-05-17 00:37] LABS: Lactic Acid 3.6 mmol/L (0.5-2.0)
--- NOTE | 2021-05-17 01:01 | PC.NURSE ---
PT AWAKE AND ALERT, TEMP SENSING [place] IN PLACE. INITIALLY NO URINE IN BAG, PT GIVEN AN ADDITIONAL DOSE OF LASIX AND URINE OUTPUT IMPROVED SLIGHTLY. URINE ONLY 30 ML'S IN PAST 2 HOURS SINCE [place] PLACED. NITRO INFUSION STARTED AT 27 MCG/MIN, INCREASED TO 30 MCG/MIN. PT COMFORTABLE ON BIPAP, STILL ONLY ABLE TO ANSWER IN ONE WORD RESPONSES. WAS CALLED EARLIER BY FIRE ADJUSTER TO COME TO BEDSIDE. REPORTS THAT HER RESPONSE WAS THAT SHE WAS NOT COMING IN.
--- NOTE | 2021-05-17 01:11 | PC.NURSE ---
TEMPERATURES DOCUMENTED RECTAL, WERE FROM [place].
--- NOTE | 2021-05-17 01:39 | PC.NURSE ---
NITRO INFUSION PAUSED, NITRO PASTE REMOVED FROM CHEST. URINE OUTPUT HAS IMPROVED, TOTAL NOW 125 ML.
[2021-05-17 01:50] LABS: Appearance Urine CLEAR; Color Urine YELLOW; Glucose Urine UA NEG (NEG); Leukocyte Esterase Urine NEG (NEG); Nitrite Urine NEG (NEG); PH 7.5 (5.0-8.0); Urine Blood 2+ (NEG); Urine Ketones NEG (NEG); Urine Protein 2+ MG/DL (NEG-TRACE)
[2021-05-17 01:58] LABS: RBC Urine 30-49 /HPF (0); Squamous Epithelial Cell Urine 1+ /LPF; WBC Urine 0-2 /HPF (0-4)
[2021-05-17 01:59] LABS: Amorphous Sediment Urine 1+ /LPF; Granular Casts Urine 0-2 /LPF; Hyaline Casts Urine 0-2 /LPF; Mucus Urine 1+ /LPF; Renal Epithelial Cells Urine 1+ /LPF
[2021-05-17 02:01] LABS: Reflex Lactate? Lactic Acid Added
[2021-05-17 02:47] LABS: ~Lactic Acid-LAB USE ONLY 1.8 mmol/L (0.5-2.0)
[2021-05-17 03:02] LABS: Troponin-I High Sensitivity 107.6 ng/L (<3.5-35.0)
--- NOTE | 2021-05-17 03:03 | PC.NURSE ---
PT SLEEPING WITH BIPAP STILL ASSISTING HIS VENTILATIONS. PT NO LONGER COOL AND SWEATING. SKIN IS WARM AND DRY.
[2021-05-17 03:16] LABS: Alanine Aminotransferase 19 U/L (0-40); Alkaline Phosphatase 89 U/L (39-117)
[2021-05-17 03:19] LABS: Albumin Level 3.6 g/dL (3.5-5.0); Anion Gap 15 (12-20); Aspartate Amino Transferase 23 U/L (5-37); Bilirubin Total 1.3 mg/dL (0.0-1.0); Blood Urea Nitrogen 30 mg/dL (9-16); Calcium 8.7 mg/dL (8.4-10.2); Carbon Dioxide 24 mmol/L (22-29); Chloride 109 mmol/L (96-108); Estimated Glomerular Filt Rate 33; Glucose Random 161 mg/dL (60-115); Potassium 4.4 mmol/L (3.3-5.1); Sodium 144 mmol/L (135-145); Total Protein 6.7 g/dL (6.5-8.0)
--- NOTE | 2021-05-17 05:18 | P.HPHOSP_ITS ---
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 Status post AICD; history of I&D, COPD, paroxysmal AFib on Eliquis, chronic kidney disease, pulmonary nodules, pulmonary embolism presented to the hospital today with a chief complaint of shortness of breath. Patient denies any chest pain palpitations lightheadedness or dizziness. Denies any nausea vomiting diarrhea Denies any urinary symptoms Denies any fever and cough. Review of all other systems is negative except mentioned above ER course: Per ER team patient on presentation noted to be in acute hypoxic respiratory failure: Noted to have creatinine of 1.9, proBNP in 3000s, chest x-ray consist acute CHF; Patient was DNR DNI; subsequently patient excepted to use noninvasive ventilation; Patient on presentation was on non-rebreather, still hypoxic, placed on CPAP. Patient was started on nitro drip, given total of 100 mg of Lasix IV; patient put out about 300 cc of urine. Subsequently the patient respiratory status improved. Patient was transitioned to nasal cannula 4 L saturating 96%. Nitro drip was discontinued and nitro patch was also removed. No obvious signs of infection noted. COVID-19 negative Urinalysis negative for infection but noted microscopic hematuria CXR showed No evidence of pneumonia. Patient's troponin elevated from 21-107; EKG was paced. ER team discussed with Cardiology, recommended no further intervention. [facility] Medical History Biventricular implantable 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-defibrillator (ICD) in situ CAD (coronary artery disease) Cardiomyopathy CHF (congestive heart failure) Chronic back pain Chronic pulmonary embolism without acute cor pulmonale CKD (chronic kidney disease) Combined systolic and diastolic heart failure COPD (chronic obstructive pulmonary disease) Failed back syndrome, lumbar HLD (hyperlipidemia) HTN (hypertension) Hyperkalemia ICD (implantable 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-defibrillator) in place ILD (interstitial lung disease) Ischemic cardiomyopathy residential current use of amiodarone Paroxysmal atrial fibrillation Polyarthritis Pulmonary nodules PVC (premature ventricular contraction) Family History Father Cancer Mother Cancer Brother Lymph node cancer Skin cancer Sister Diabetes Surgical History H/O cardiac catheterization (~10/2017) History of ankle surgery History of cardiac pacemaker History of elbow surgery History of eye surgery History of surgery S/P mitral valve clip implantation Social History Household Members: Spouse Housing: House Alcohol intake: unknown Patient Tobacco Use Status: Tobacco use Unknown Cigarettes Per Day: 8 Substance Use Type: Marijuana service: No Current occupational status: retired Current occupation: right handed Meds Allergies Allergy/AdvReac Type Severity Reaction Status Date / Time bee pollen [BEE STINGS] Allergy Severe ANAPHYLAXIS Verified 05/13/21 09:04 Active Medications: Current Medications Generic Name Dose Route Start Last Admin Trade Name Freq PRN Reason Stop Dose Admin Acetaminophen 650 mg 05/17/21 05:12 Acetaminophen 325 Mg Tablet PO Q6H PRN Pain, Mild (Pain Scale 1-3) Furosemide 80 mg 05/17/21 08:00 Furosemide 40 Mg/4 Ml Vial IVPUSH BIDWM [facility] Protocol Nitroglycerin/Dextrose 100 mg in 250 mls @ 0 mls/hr 05/17/21 00:15 05/17/21 00:17 IVCONT 27 mcg/min .Q0M GALLO 4.05 mls/hr Administration Protocol Per Protocol Magnesium Hydroxide 30 ml 05/17/21 05:12 Milk Of Magnesia 30 Ml Oral.Susp PO DAILY PRN Constipation Nitroglycerin 0.4 mg 05/17/21 05:12 Nitroglycerin 0.4 Mg Tab.Subl SUBLINGUAL Q5M PRN Chest Pain Sodium Chloride 3 ml 05/17/21 08:00 0.9 % Sodium Chloride Flush 3 Ml Syringe IVFLUSH QSHIFT [facility] Home Medications Medication Instructions Recorded Confirmed Last Taken Type ascorbic acid (vitamin C) [Vitamin 1,000 mg PO DAILY 11/20/20 05/17/21 12/19/20 History C] magnesium 500 mg PO BID 11/20/20 05/17/21 12/19/20 History albuterol sulfate 90 mcg/actuation 1 puff INHALATION Q4-6H 12/08/20 05/17/21 12/19/20 History aerosol inhaler cholecalciferol (vitamin D3) 50 mcg PO DAILY 05/17/21 05/17/21 Unknown History Physical Exam Vital Signs and Narrative: Vital Signs: Last Vital Signs Temp 98.8 F 05/17/21 05:07 Pulse 81 05/17/21 05:07 Resp 17 05/17/21 05:07 BP 114/60 05/17/21 05:07 Pulse Ox 96 05/17/21 05:07 Body Mass Index 27.6 Gen: Appears be in no acute distress; speaks in full sentences; on supplemental oxygen HEENT: NCAT, Moist mucosa. Pulmonary: Crackles in the bilateral lung chaidez CVS: Murmur present Abdomen: BS+, Soft, Nontender Extremities: Warm well perfused Neuro: Alert and awake. Grossly nonfocal Results Labs CBC and Chem 7: 05/18/21 05:20 05/18/21 05:20 Labs: Laboratory Results - last 24 hr 05/16/21 05/16/21 05/16/21 22:46 22:46 22:46 MCV 77.1 L MCH 22.6 L MCHC 29.3 L RDW 17.2 H Plt Count 196 MPV 10.6 Immature Gran % (Auto) 0.4 Neut % (Auto) 62.9 Lymph % (Auto) 26.2 [place] % (Auto) 8.4 Eos % (Auto) 1.7 Baso % (Auto) 0.4 Lymph # (Auto) 3.6 [place] # (Auto) 1.2 Eos # (Auto) 0.2 Baso # (Auto) 0.1 Abs Immat Gran (auto) 0.06 H Absolute Neuts (auto) 8.7 H Absolute Nucleated RBC 0.000 Nucleated RBC % (auto) 0.0 PT INR Anion Gap 19 Estim Creat Clear Calc 35.3 Estimated GFR 34 Random Glucose 247 H D Lactic Acid Lactic Acid Fup @ 2Hr Calcium 8.8 Total Bilirubin 1.0 AST 26 ALT 19 Alkaline Phosphatase 95 Troponin I High Sens 21.2 B-Natriuretic Peptide 3221 H Total Protein 6.9 Albumin 3.8 Urine Color Urine Appearance Urine pH Ur Specific [place] Urine Protein Urine Glucose (UA) Urine Ketones Urine Blood Urine Nitrite Ur Leukocyte Esterase Urine RBC Urine WBC Ur Squamous Epith Cells Ur Renal Epithelial Cell Amorphous Sediment Urine Bacteria Hyaline Casts Granular Casts Urine Mucus COVID-19 ([facility]) COVID-19 Clin Com 05/16/21 05/16/21 05/16/21 22:46 22:46 23:57 MCV MCH MCHC RDW Plt Count MPV Immature Gran % (Auto) Neut % (Auto) Lymph % (Auto) [place] % (Auto) Eos % (Auto) Baso % (Auto) Lymph # (Auto) [place] # (Auto) Eos # (Auto) Baso # (Auto) Abs Immat Gran (auto) Absolute Neuts (auto) Absolute Nucleated RBC Nucleated RBC % (auto) PT 20.7 H D INR 1.7 H Anion Gap Estim Creat Clear Calc Estimated GFR Random Glucose Lactic Acid 3.6 H* Lactic Acid Fup @ 2Hr Calcium Total Bilirubin AST ALT Alkaline Phosphatase Troponin I High Sens B-Natriuretic Peptide Total Protein Albumin Urine Color Urine Appearance Urine pH Ur Specific [place] Urine Protein Urine Glucose (UA) Urine Ketones Urine Blood Urine Nitrite Ur Leukocyte Esterase Urine RBC Urine WBC Ur Squamous Epith Cells Ur Renal Epithelial Cell Amorphous Sediment Urine Bacteria Hyaline Casts Granular Casts Urine Mucus COVID-19 ([facility]) Negative COVID-19 Clin Com See Note 05/17/21 05/17/21 05/17/21 01:45 02:23 02:23 MCV MCH MCHC RDW Plt Count MPV Immature Gran % (Auto) Neut % (Auto) Lymph % (Auto) [place] % (Auto) Eos % (Auto) Baso % (Auto) Lymph # (Auto) [place] # (Auto) Eos # (Auto) Baso # (Auto) Abs Immat Gran (auto) Absolute Neuts (auto) Absolute Nucleated RBC Nucleated RBC % (auto) PT INR Anion Gap 15 Estim Creat Clear Calc 35.0 Estimated GFR 33 Random Glucose 161 H Lactic Acid Lactic Acid Fup @ 2Hr 1.8 Calcium 8.7 Total Bilirubin 1.3 H AST 23 ALT 19 Alkaline Phosphatase 89 Troponin I High Sens B-Natriuretic Peptide Total Protein 6.7 Albumin 3.6 Urine Color YELLOW Urine Appearance CLEAR Urine pH 7.5 Ur Specific [place] 1.020 Urine Protein 2+ H Urine Glucose (UA) NEG Urine Ketones NEG Urine Blood 2+ H Urine Nitrite NEG Ur Leukocyte Esterase NEG Urine RBC 30-49 H Urine WBC 0-2 Ur Squamous Epith Cells 1+ Ur Renal Epithelial Cell 1+ Amorphous Sediment 1+ Urine Bacteria NONE Hyaline Casts 0-2 Granular Casts 0-2 Urine Mucus 1+ COVID-19 ([facility]) COVID-19 Clin Com 05/17/21 02:23 MCV MCH MCHC RDW Plt Count MPV Immature Gran % (Auto) Neut % (Auto) Lymph % (Auto) [place] % (Auto) Eos % (Auto) Baso % (Auto) Lymph # (Auto) [place] # (Auto) Eos # (Auto) Baso # (Auto) Abs Immat Gran (auto) Absolute Neuts (auto) Absolute Nucleated RBC Nucleated RBC % (auto) PT INR Anion Gap Estim Creat Clear Calc Estimated GFR Random Glucose Lactic Acid Lactic Acid Fup @ 2Hr Calcium Total Bilirubin AST ALT Alkaline Phosphatase Troponin I High Sens 107.6 H* D B-Natriuretic Peptide Total Protein Albumin Urine Color Urine Appearance Urine pH Ur Specific [place] Urine Protein Urine Glucose (UA) Urine Ketones Urine Blood Urine Nitrite Ur Leukocyte Esterase Urine RBC Urine WBC Ur Squamous Epith Cells Ur Renal Epithelial Cell Amorphous Sediment Urine Bacteria Hyaline Casts Granular Casts Urine Mucus COVID-19 ([facility]) COVID-19 Clin Com Imaging Radiologist's Impressions: Impressions Chest X-Ray 05/16/21 22:34 IMPRESSION: Increased pulmonary vascular congestion and interstitial edema since prior study of 04/08/2021 Assessment and Plan (1) CHF exacerbation: Status: Acute 76-year-old male with a past medical history hypertension, hyperlipidemia CAD, CHF with EF of 35% status post AICD, history of mitral clip, chronic kidney disease, IUD, COPD, home oxygen, history of AFib, pulmonary embolism on Eliquis; presented to the hospital with a chief complaint of shortness of breath. Noted to be in acute hypoxic respiratory failure in the setting of acute CHF. Acute hypoxic respiratory failure: Patient presented to the ER on non-rebreather; subsequently placed on CPAP; noted to be in acute CHF exacerbation with conditional chest x-ray and elevated proBNP, demand ischemia. Patient was given nitro drip, Lasix; patient gradually improved and subsequently transitioned to nasal cannula at 4 L. Currently saturating at 96%. Not in respiratory distress. Isha woodyrdavid Acute CHF exacerbation: Patient on torsemide at home. Will continue the patient on Lasix 80 mg IV b.i.d.. Patient recent echocardiogram showed EF of 35%. Monitor on telemetry. Continue home carvedilol. Elevated troponins: Patient denies any chest pain. EKG paced. Likely in the setting of demand. Cardiology made aware. Acute on chronic kidney injury: Will monitor renal function while diuresing. Will hold home Entresto. Nephrology consult History of pulmonary embolism/paroxysmal AFib: Continue home Eliquis. Currently rate controlled. Continue home medications. Hypertension/hyperlipidemia: Will continue home beta-darwin and statin. c/w home meds once med rec is done Code status: DNR/DNI. Patient agreeable for noninvasive ventilation. Quality Stroke Does the patient have a stroke diagnosis?: No VTE Prior VTE?: No VTE Risk Level:: Medical - moderate - high VTE Device Contraindication: N/A - Device Ordered VTE Drug Contraindication: N/A - Med Ordered
--- NOTE | 2021-05-17 05:20 | PC.NURSE ---
ASSUMED CARE AT 3:15 AM, PT WAS ON BIPAP 14/6 45% FiO2 tv 630-650 RR 18/20 O2 SATS 97-98%. PT LUNGS DIMINISHED THROUGHOUT, VPACED ON MONITOR HR 86-89. URINE OUTPUT WAS 295 AT 3:30 AM AFTER PREVIOUS LASIX DOSES. AT 4:30 AM PT TRANSITIONED BACK TO NASAL CANNULA 3LPM, SATS MAINTAINED AT 95-96% ON 3L N/C, PT DROWSY BUT AROUSABLE TO NAME. URINE OUTPUT AT 5:15 WAS 200 ML
[2021-05-17 07:32] LABS: Troponin-I High Sensitivity 162.4 ng/L (<3.5-35.0)
--- NOTE | 2021-05-17 07:42 | MHC.CM.PN ---
PATIENT IS IN FROM HOME WHERE HE LIVES WITH HIS /HCP. HCP ON FILE AND VERIFIED. HE WAS RECENTLY DISCHARGED FROM [facility] [address], WHERE HE SPENT SEVEN WEEKS. HE WAS RETURNED HOME WITH [facility]NA SERVICES 3X/WEEK. HE IS UNABLE TO REMEMBER THE NAME OF THE VNA AND IS AGREEABLE TO THIS [employer] CALLING TO FIND OUT. HE IS ON 1.5 LITERS HOME O2 AND HAS AMPLE SUPPLY. PATIENT REPORTS HAVING A SCAN DEVICE AT HOME TO MEASURE THE AMOUNT OF FLUID BUILD UP IN HIS CHEST. HE USES THIS ONCE DAILY. CASE MANAGEMENT FOLLOWING FOR DISCHARGE PLANS,. IMM 05/17 IN CHART.
[2021-05-17] MEDS: Furosemide 40 MG/4 ML VIAL 80 MG IVPUSH ×2 (07:57→17:18)
--- NOTE | 2021-05-17 07:57 | MHC.CM.ED ---
PCP IS DR ARGUELLO AND HE ALSO SEES DR IRINA MOSQUEDA. WHEN ASKED WHO IS PRIMARY, PATIENT STATES BOTH
[2021-05-17] MEDS: 0.9 % Sodium Chloride Flush 3 ML SYRINGE IVFLUSH ×3 (07:58→20:51)
--- NOTE | 2021-05-17 08:20 | PHA.MEDREC ---
Pharmacy Consult ? Medication Reconciliation Pharmacy has completed the medication reconciliation.
[2021-05-17] MEDS: carvediloL 6.25 MG TABLET PO ×2 (08:23→20:50)
[2021-05-17] MEDS: Magnesium Oxide 400 MG TABLET PO ×2 (08:23→17:19)
[2021-05-17] MEDS: Ascorbic Acid 500 MG TABLET 1000 MG PO (08:23)
[2021-05-17] MEDS: Apixaban 5 MG TABLET PO ×2 (08:23→20:50)
[2021-05-17] MEDS: Albuterol Sulfate 90 MCG 8 GM INHALER 1 PUFF INHALE (08:23)
[2021-05-17] MEDS: Levothyroxine Sodium 25 MCG TABLET PO (08:24)
[2021-05-17] MEDS: Gabapentin 600 MG TABLET PO ×2 (08:24→20:50)
[2021-05-17] MEDS: Albuterol/Iprat 2.5/0.5MG 3 ML AMPUL.NEB INHALE ×4 (08:54→20:20)
--- NOTE | 2021-05-17 10:57 | MHC.CM.PN ---
, [facility] ([phone]) STATES THAT PATIENT IS ACTIVE WITH [facility]. REFERRAL NOW PLACED PER PROVIDER, PATIENT IS INTERESTED IN A HOSPICE CONSULT REFERRAL TO BE PLACED CASE MANAGEMENT CONTINUING TO FOLLOW
--- NOTE | 2021-05-17 11:38 | PM.CNCAR ---
History of Present Illness History of Present Illness Date of Service: 05/17/21 Requesting physician: Jules Reyes Chief complaint: Congestive heart failure Narrative: 75-year-old gentleman with past medical history significant for hypertension, hyperlipidemia, chronic kidney disease, paroxysmal atrial fibrillation on Eliquis, premature ventricular complexes, previous pulmonary embolism, mitral regurgitation status post MitraClip, cardiomyopathy with [employer] and CardioMEMS device in the past. He has COPD and has been oxygen at home. He is presenting with shortness of breath and pulmonary edema. He has been admitted few times due to heart failure. He is quite tearful and emotional and wishes to get on hospice. He is saying he cannot take it anymore. His admission workup was consistent with congestive heart failure with chest x-ray showing pulmonary edema. He was given nitroglycerin in the ER as well as diuretics. He is saying his breathing is somewhat better but not back to normal. [facility] Past Medical History Medical History Biventricular implantable 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-defibrillator (ICD) in situ CAD (coronary artery disease) Cardiomyopathy CHF (congestive heart failure) Chronic back pain Chronic pulmonary embolism without acute cor pulmonale CKD (chronic kidney disease) Combined systolic and diastolic heart failure COPD (chronic obstructive pulmonary disease) Failed back syndrome, lumbar HLD (hyperlipidemia) HTN (hypertension) Hyperkalemia ICD (implantable 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-defibrillator) in place ILD (interstitial lung disease) Ischemic cardiomyopathy FCI current use of amiodarone Paroxysmal atrial fibrillation Polyarthritis Pulmonary nodules PVC (premature ventricular contraction) Family History Family History Father Cancer Mother Cancer Brother Lymph node cancer Skin cancer Sister Diabetes Surgical History Surgical History H/O cardiac catheterization (~10/2017) History of ankle surgery History of cardiac pacemaker History of elbow surgery History of eye surgery History of surgery S/P mitral valve clip implantation Social History Social History Household Members: Spouse Housing: House Alcohol intake: unknown Patient Tobacco Use Status: Tobacco use Unknown Cigarettes Per Day: 8 Use of substances other than those prescribed or required for medical reasons: Unknown Substance Use Type: Marijuana Advance Directives: No service: No Current occupational status: retired Current occupation: right handed Meds Allergies Allergy/AdvReac Type Severity Reaction Status Date / Time bee pollen [BEE STINGS] Allergy Severe ANAPHYLAXIS Verified 05/13/21 09:04 Active Medications: Current Medications Generic Name Dose Route Start Last Admin Trade Name Freq PRN Reason Stop Dose Admin Acetaminophen 650 mg 05/17/21 05:12 Acetaminophen 325 Mg Tablet PO Q6H PRN Pain, Mild (Pain Scale 1-3) Albuterol Sulfate 2.5 mg 05/17/21 08:01 Albuterol Sulfate (0.083%) 2.5 Mg/3 Ml Vial.Neb INHALE QID PRN wheezing Albuterol Sulfate 1 puff 05/17/21 08:15 05/17/21 08:23 Albuterol Sulfate 90 Mcg 8 Gm Inhaler INHALE 1 puff Q4H GALLO Administration Albuterol/Ipratropium 3 ml 05/17/21 05:29 Albuterol/Iprat 2.5/0.5mg 3 Ml Ampul.Neb INHALE RQ4H PRN Shortness of Breath/Wheezing Albuterol/Ipratropium 3 ml 05/17/21 08:15 05/17/21 08:54 Albuterol/Iprat 2.5/0.5mg 3 Ml Ampul.Neb INHALE 3 ml RQID GALLO Administration Apixaban 5 mg 05/17/21 09:00 05/17/21 08:23 Apixaban 5 Mg Tablet PO 5 mg BID GALLO Administration Ascorbic Acid 1,000 mg 05/17/21 09:00 05/17/21 08:23 Ascorbic Acid 500 Mg Tablet PO 1,000 mg DAILY GALLO Administration Atorvastatin Calcium 60 mg 05/17/21 21:00 Atorvastatin Calcium 20 Mg Tablet PO BEDTIME GALLO Carvedilol 6.25 mg 05/17/21 09:00 05/17/21 08:23 Carvedilol 6.25 Mg Tablet PO 6.25 mg BID GALLO Administration Protocol Furosemide 80 mg 05/17/21 08:00 05/17/21 07:57 Furosemide 40 Mg/4 Ml Vial IVPUSH 80 mg BIDWM GALLO Administration Protocol Gabapentin 600 mg 05/17/21 09:00 05/17/21 08:24 Gabapentin 600 Mg Tablet PO 600 mg BID GALLO Administration Nitroglycerin/Dextrose 100 mg in 250 mls @ 0 mls/hr 05/17/21 00:15 05/17/21 00:17 IVCONT 27 mcg/min .Q0M GALLO 4.05 mls/hr Administration Protocol Per Protocol Levothyroxine Sodium 25 mcg 05/17/21 09:00 05/17/21 08:24 Levothyroxine Sodium 25 Mcg Tablet PO 25 mcg DAILY GALLO Administration Magnesium Hydroxide 30 ml 05/17/21 05:12 Milk Of Magnesia 30 Ml Oral.Susp PO DAILY PRN Constipation Magnesium Oxide 400 mg 05/17/21 08:30 05/17/21 08:23 Magnesium Oxide 400 Mg Tablet PO 400 mg BIDPC GALLO Administration Morphine Sulfate 2 mg 05/17/21 10:54 Morphine Sulfate 2 Mg/Ml Cartridge IVPUSH Q4H PRN Shortness of Breath Nitroglycerin 0.4 mg 05/17/21 05:12 Nitroglycerin 0.4 Mg Tab.Subl SUBLINGUAL Q5M PRN Chest Pain Oxycodone HCl 15 mg 05/17/21 08:01 Oxycodone Hcl Immed Release 15 Mg Tablet PO Q8H PRN pain Sodium Chloride 3 ml 05/17/21 08:00 05/17/21 07:58 0.9 % Sodium Chloride Flush 3 Ml Syringe IVFLUSH 3 ml QSHIFT GALLO Administration Home Medications Medication Instructions Recorded Confirmed Last Taken Type ascorbic acid (vitamin C) [Vitamin 1,000 mg PO DAILY 11/20/20 05/17/21 12/19/20 History C] carvedilol 6.25 mg PO BID 11/20/20 05/17/21 12/19/20 History magnesium 500 mg PO BID 11/20/20 05/17/21 12/19/20 History albuterol sulfate 90 mcg/actuation 1 puff INHALATION Q4-6H 12/08/20 05/17/21 12/19/20 History aerosol inhaler albuterol sulfate 2.5 ml INHALATION QID PRN 05/17/21 05/17/21 Unknown History atorvastatin 60 mg PO BEDTIME 05/17/21 05/17/21 Unknown History cholecalciferol (vitamin D3) 50 mcg PO DAILY 05/17/21 05/17/21 Unknown History gabapentin 600 mg PO BEDTIME 05/17/21 05/17/21 Unknown History Physical Exam Vital Signs: Vital Signs: Last Vital Signs Temp 98.8 F 05/17/21 05:07 Pulse 87 05/17/21 08:57 Resp 18 05/17/21 08:02 BP 137/69 05/17/21 08:02 Pulse Ox 97 05/17/21 08:02 Body Mass Index 27.6 GENERAL APPEARANCE: in no acute distress. Emotional and tearful NECK/THYROID: no carotid bruit, + jugular venous distention. SKIN: no suspicious lesions, warm and dry. HEART: Holosystolic murmur at the apex, regular rate and rhythm, S1, S2 normal. LUNGS: clear to auscultation bilaterally. ABDOMEN: normal, bowel sounds present, soft, nontender, nondistended. EXTREMITIES: no clubbing, cyanosis, or edema. NEUROLOGIC: nonfocal, alert and oriented. PSYCH: Depressed. Results Labs and Meds Result diagrams: 05/16/21 22:46 05/17/21 02:23 Lab results: Laboratory Results - last 24 hr 05/16/21 05/16/21 05/16/21 22:46 22:46 22:46 WBC 13.9 H RBC 4.77 Hgb 10.8 L Hct 36.8 L MCV 77.1 L MCH 22.6 L MCHC 29.3 L RDW 17.2 H Plt Count 196 MPV 10.6 Immature Gran % (Auto) 0.4 Neut % (Auto) 62.9 Lymph % (Auto) 26.2 [place] % (Auto) 8.4 Eos % (Auto) 1.7 Baso % (Auto) 0.4 Lymph # (Auto) 3.6 [place] # (Auto) 1.2 Eos # (Auto) 0.2 Baso # (Auto) 0.1 Abs Immat Gran (auto) 0.06 H Absolute Neuts (auto) 8.7 H Absolute Nucleated RBC 0.000 Nucleated RBC % (auto) 0.0 PT INR Sodium 142 Potassium 4.7 Chloride 107 Carbon Dioxide 21 L Anion Gap 19 BUN 26 H Creatinine 1.95 H Estim Creat Clear Calc 35.3 Estimated GFR 34 Random Glucose 247 H D Lactic Acid Lactic Acid Fup @ 2Hr Calcium 8.8 Total Bilirubin 1.0 AST 26 ALT 19 Alkaline Phosphatase 95 Troponin I High Sens 21.2 B-Natriuretic Peptide 3221 H Total Protein 6.9 Albumin 3.8 Urine Color Urine Appearance Urine pH Ur Specific [place] Urine Protein Urine Glucose (UA) Urine Ketones Urine Blood Urine Nitrite Ur Leukocyte Esterase Urine RBC Urine WBC Ur Squamous Epith Cells Ur Renal Epithelial Cell Amorphous Sediment Urine Bacteria Hyaline Casts Granular Casts Urine Mucus COVID-19 ([facility]) COVID-19 Clin Com 05/16/21 05/16/21 05/16/21 22:46 22:46 23:57 WBC RBC Hgb Hct MCV MCH MCHC RDW Plt Count MPV Immature Gran % (Auto) Neut % (Auto) Lymph % (Auto) [place] % (Auto) Eos % (Auto) Baso % (Auto) Lymph # (Auto) [place] # (Auto) Eos # (Auto) Baso # (Auto) Abs Immat Gran (auto) Absolute Neuts (auto) Absolute Nucleated RBC Nucleated RBC % (auto) PT 20.7 H D INR 1.7 H Sodium Potassium Chloride Carbon Dioxide Anion Gap BUN Creatinine Estim Creat Clear Calc Estimated GFR Random Glucose Lactic Acid 3.6 H* Lactic Acid Fup @ 2Hr Calcium Total Bilirubin AST ALT Alkaline Phosphatase Troponin I High Sens B-Natriuretic Peptide Total Protein Albumin Urine Color Urine Appearance Urine pH Ur Specific [place] Urine Protein Urine Glucose (UA) Urine Ketones Urine Blood Urine Nitrite Ur Leukocyte Esterase Urine RBC Urine WBC Ur Squamous Epith Cells Ur Renal Epithelial Cell Amorphous Sediment Urine Bacteria Hyaline Casts Granular Casts Urine Mucus COVID-19 ([facility]) Negative COVID-19 Clin Com See Note 05/17/21 05/17/21 05/17/21 01:45 02:23 02:23 WBC RBC Hgb Hct MCV MCH MCHC RDW Plt Count MPV Immature Gran % (Auto) Neut % (Auto) Lymph % (Auto) [place] % (Auto) Eos % (Auto) Baso % (Auto) Lymph # (Auto) [place] # (Auto) Eos # (Auto) Baso # (Auto) Abs Immat Gran (auto) Absolute Neuts (auto) Absolute Nucleated RBC Nucleated RBC % (auto) PT INR Sodium 144 Potassium 4.4 Chloride 109 H Carbon Dioxide 24 Anion Gap 15 BUN 30 H Creatinine 1.97 H Estim Creat Clear Calc 35.0 Estimated GFR 33 Random Glucose 161 H Lactic Acid Lactic Acid Fup @ 2Hr 1.8 Calcium 8.7 Total Bilirubin 1.3 H AST 23 ALT 19 Alkaline Phosphatase 89 Troponin I High Sens B-Natriuretic Peptide Total Protein 6.7 Albumin 3.6 Urine Color YELLOW Urine Appearance CLEAR Urine pH 7.5 Ur Specific [place] 1.020 Urine Protein 2+ H Urine Glucose (UA) NEG Urine Ketones NEG Urine Blood 2+ H Urine Nitrite NEG Ur Leukocyte Esterase NEG Urine RBC 30-49 H Urine WBC 0-2 Ur Squamous Epith Cells 1+ Ur Renal Epithelial Cell 1+ Amorphous Sediment 1+ Urine Bacteria NONE Hyaline Casts 0-2 Granular Casts 0-2 Urine Mucus 1+ COVID-19 ([facility]) COVID-19 Clin Com 05/17/21 05/17/21 02:23 06:47 WBC RBC Hgb Hct MCV MCH MCHC RDW Plt Count MPV Immature Gran % (Auto) Neut % (Auto) Lymph % (Auto) [place] % (Auto) Eos % (Auto) Baso % (Auto) Lymph # (Auto) [place] # (Auto) Eos # (Auto) Baso # (Auto) Abs Immat Gran (auto) Absolute Neuts (auto) Absolute Nucleated RBC Nucleated RBC % (auto) PT INR Sodium Potassium Chloride Carbon Dioxide Anion Gap BUN Creatinine Estim Creat Clear Calc Estimated GFR Random Glucose Lactic Acid Lactic Acid Fup @ 2Hr Calcium Total Bilirubin AST ALT Alkaline Phosphatase Troponin I High Sens 107.6 H* D 162.4 H* D B-Natriuretic Peptide Total Protein Albumin Urine Color Urine Appearance Urine pH Ur Specific [place] Urine Protein Urine Glucose (UA) Urine Ketones Urine Blood Urine Nitrite Ur Leukocyte Esterase Urine RBC Urine WBC Ur Squamous Epith Cells Ur Renal Epithelial Cell Amorphous Sediment Urine Bacteria Hyaline Casts Granular Casts Urine Mucus COVID-19 ([facility]) COVID-19 Clin Com Imaging Radiologist's impression: Impressions Chest X-Ray 05/16/21 22:34 IMPRESSION: Increased pulmonary vascular congestion and interstitial edema since prior study of 04/08/2021 Assessment and Plan (1) Acute respiratory failure with hypoxia: Status: Acute (2) CHF exacerbation: Status: Acute 76-year-old gentleman with background of cardiomyopathy and congestive heart failure is presenting with pulmonary edema. He was treated with nitroglycerin and diuretics. Clinically he is improving. He is very tearful and depressed. He has been admitted multiple times. He is asking to talk to hospice. Agree with IV diuretics 80 mg twice a day. Blood pressure control seems reasonable right now. Continue his other medications as before. If he does not diurese well then carvedilol dose should be decreased to 3.125 mg twice a day. Please involve palliative care. Thank you for allowing me to participate in the care of your patient. Please feel free to contact me if you have any questions. Procedures Date of Service Date of Service: 05/17/21
[2021-05-17] MEDS: Acetaminophen 325 MG TABLET 650 MG PO (11:48)
[2021-05-17] MEDS: oxyCODONE HCl Immed Release 15 MG TABLET PO (11:48)
--- NOTE | 2021-05-17 14:35 | W.MHC.ACPN ---
Advanced Care Planning Note Advanced Care Planning Note Discussed with: patient Time spent (in minutes): 17 Narrative: I had a chance speak with the patient about his goals of cares as he was admitted overnight to the hospital for acute CHF exacerbation. The patient recurrent hospital stay secondary to heart failure and similar problems in the past. He reports that he feels dyspneic at home a lot of times associated with sweating and anxiety. Years very distressed from that and feels down and depressed. Discussing his goals of care he does in the coming back to the hospital in the time is the way he will to spend the rest of his life. I explained to him the idea of hospice care and the fact that it could be done at home and focus more on leaking comfortable still bring him back to the hospital for blood tested treatment. He seems to be interested in that option and would like to pursue that. Spoke with the supportive employment case manager to arrange for hospice care evaluation with involvement of the . For the time being will continue treatment for CHF exacerbation 2 weeks the patient feels better and will add IV morphine as needed for shortness of breath and dyspnea. His code status is DNR DNI Problems Discussed (1) Acute respiratory failure with hypoxia: (2) CHF exacerbation:
--- NOTE | 2021-05-17 14:57 | MHC.CM.PN ---
IMM MALE 76 LIVES @ HOME WITH . [facility]. IN ER PT REQUESTED A HOSPICE INFORMATIONAL MEETING. [facility] HAS BEEN REFERRED. [facility] HAS SCHEDULED AN INFO MEET FOR TODAY. HOME WITH SERVICES [facility] TRANSPORT. CM WILL FOLLOW.
--- NOTE | 2021-05-17 16:04 | MHC.CM.PN ---
Hospice will be dispo @ [facility] met with the Pt and he does not want to go back and forth to the Hospital anymore per hospice liason. CM will follow.
[2021-05-17] MEDS: Atorvastatin Calcium 20 MG TABLET 60 MG PO (20:50)
[2021-05-17] MEDS: Morphine Sulfate 2 MG/ML CARTRIDGE IVPUSH (20:50)
[2021-05-18 03:19] VITALS: BP 99/52; PULSE 88; RESP 18; TEMP 36.6; O2SAT 94
[2021-05-18 05:49] VITALS: BMI 26.9
[2021-05-18 05:50] LABS: MANUAL DIFF FLAG NO
[2021-05-18 05:56] LABS: Basophils Percent Auto 0.1 % (0-2); Hematocrit 29.4 % (42-52); Hemoglobin 8.8 g/dl (14.0-18.0); Imm Gran Abs Auto 0.07 X10*3/uL (0.00-0.03); Imm Gran Pct Auto 0.5 % (0.0-0.4); Lymphocytes Absolute Auto 0.9 X10*3/uL (1.2-4.9); Lymphocytes Percent Auto 6.7 % (20-40); Mean Corpuscular HGB Conc 29.9 g/dl (31.0-36.0); Mean Corpuscular Hemoglobin 22.4 pg (27.0-33.0); Mean Corpuscular Volume 74.8 fL (80-98); Mean Platelet Volume 9.9 fL (9.4-12.4); Monocytes Absolute Auto 0.7 X10*3/uL (0.1-1.2); Monocytes Percent Auto 5.7 % (2-11); Neutrophils Absolute Auto 11.1 X10*3/uL (2.0-8.3); Platelet Count 104 X10*3/uL (160-400); Red Blood Count 3.93 X10*6/uL (4.60-5.80); Red Cell Distribution Width 17.3 % (11.0-16.0); White Blood Count 12.8 X10*3/uL (4.8-10.8)
[2021-05-18 06:23] LABS: Anion Gap 14 (12-20); Blood Urea Nitrogen 44 mg/dL (9-16); Calcium 8.8 mg/dL (8.4-10.2); Carbon Dioxide 28 mmol/L (22-29); Chloride 104 mmol/L (96-108); Estimated Glomerular Filt Rate 32; Glucose Random 135 mg/dL (60-115); Potassium 4.9 mmol/L (3.3-5.1); Sodium 141 mmol/L (135-145)
[2021-05-18 07:17] VITALS: BP 118/68; PULSE 85; RESP 18; TEMP 36.8; O2SAT 99
[2021-05-18 07:52] VITALS: PULSE 86; O2SAT 93
[2021-05-18] MEDS: Albuterol/Iprat 2.5/0.5MG 3 ML AMPUL.NEB INHALE ×3 (07:52→15:24)
[2021-05-18] MEDS: 0.9 % Sodium Chloride Flush 3 ML SYRINGE IVFLUSH (08:45)
[2021-05-18 08:46] VITALS: BP 118/68; PULSE 86
[2021-05-18] MEDS: Apixaban 5 MG TABLET PO (08:46)
[2021-05-18] MEDS: Levothyroxine Sodium 25 MCG TABLET PO (08:46)
[2021-05-18] MEDS: oxyCODONE HCl Immed Release 15 MG TABLET PO (08:46)
[2021-05-18] MEDS: Magnesium Oxide 400 MG TABLET PO (08:46)
[2021-05-18] MEDS: carvediloL 6.25 MG TABLET PO (08:46)
[2021-05-18] MEDS: Ascorbic Acid 500 MG TABLET 1000 MG PO (08:46)
[2021-05-18] MEDS: Furosemide 40 MG/4 ML VIAL 80 MG IVPUSH (08:47)
[2021-05-18] MEDS: Gabapentin 600 MG TABLET PO (08:47)
[2021-05-18 11:17] VITALS: BP 106/58; PULSE 76; RESP 18; O2SAT 100
--- NOTE | 2021-05-18 11:50 | PM.PNCARD ---
Subjective Subjective Date of Service: 05/18/21 Interval history: He is saying his breathing is better today. He is seeing palliative care. Physical Exam Vital Signs: Last Vital Signs Temp 98.2 F 05/18/21 07:17 Pulse 76 05/18/21 11:17 Resp 18 05/18/21 11:17 BP 106/58 L 05/18/21 11:17 Pulse Ox 100 05/18/21 11:17 Body Mass Index 26.9 GENERAL APPEARANCE: in no acute distress. NECK/THYROID: no carotid bruit, no jugular venous distention. SKIN: no suspicious lesions, warm and dry. HEART: Holosystolic murmur at the apex, regular rate and rhythm, S1, S2 normal. LUNGS: clear to auscultation bilaterally. ABDOMEN: normal, bowel sounds present, soft, nontender, nondistended. EXTREMITIES: no clubbing, cyanosis, or edema. NEUROLOGIC: nonfocal, alert and oriented. Results Labs and Meds Result diagrams: 05/18/21 05:20 05/18/21 05:20 Lab results: Laboratory Results - last 24 hr 05/18/21 05/18/21 05:20 05:20 WBC 12.8 H RBC 3.93 L Hgb 8.8 L Hct 29.4 L D MCV 74.8 L MCH 22.4 L MCHC 29.9 L RDW 17.3 H Plt Count 104 L D MPV 9.9 Immature Gran % (Auto) 0.5 H Neut % (Auto) 87.0 H Lymph % (Auto) 6.7 L [place] % (Auto) 5.7 Eos % (Auto) 0.0 Baso % (Auto) 0.1 Lymph # (Auto) 0.9 L [place] # (Auto) 0.7 Eos # (Auto) 0.0 Baso # (Auto) 0.0 Abs Immat Gran (auto) 0.07 H Absolute Neuts (auto) 11.1 H Absolute Nucleated RBC 0.000 Nucleated RBC % (auto) 0.0 Sodium 141 Potassium 4.9 Chloride 104 Carbon Dioxide 28 Anion Gap 14 BUN 44 H Creatinine 2.03 H Estim Creat Clear Calc 34.0 Estimated GFR 32 Random Glucose 135 H Calcium 8.8 Progress Note: A&P Assessment and plan (1) CHF exacerbation: Status: Acute Assessment and Plan: 76-year-old gentleman presenting with congestive heart failure. His background MitraClip for mitral regurgitation. He has been on IV diuretics and doing well. I think he should stay on IV Lasix today and tomorrow he can be changed to 20 mg p.o. torsemide. He had multiple comorbidities and is looking into palliative care which is quite appropriate at this stage. We are signing off for now. Please page if any questions arise. Thank you for allowing me to participate in the care of your patient. Please feel free to contact me if you have any questions. Fall Risk Details Current Medications: Current Medications Generic Name Dose Route Start Last Admin Trade Name Freq PRN Reason Stop Dose Admin Acetaminophen 650 mg 05/17/21 05:12 05/17/21 11:48 Acetaminophen 325 Mg Tablet PO 650 mg Q6H PRN Administration Pain, Mild (Pain Scale 1-3) Albuterol Sulfate 2.5 mg 05/17/21 08:01 Albuterol Sulfate (0.083%) 2.5 Mg/3 Ml Vial.Neb INHALE QID PRN wheezing Albuterol Sulfate 1 puff 05/17/21 08:15 05/18/21 11:14 Albuterol Sulfate 90 Mcg 8 Gm Inhaler INHALE Not Given Q4H GALLO Albuterol/Ipratropium 3 ml 05/17/21 05:29 Albuterol/Iprat 2.5/0.5mg 3 Ml Ampul.Neb INHALE RQ4H PRN Shortness of Breath/Wheezing Albuterol/Ipratropium 3 ml 05/17/21 08:15 05/18/21 11:13 Albuterol/Iprat 2.5/0.5mg 3 Ml Ampul.Neb INHALE 3 ml RQID GALLO Administration Apixaban 5 mg 05/17/21 09:00 05/18/21 08:46 Apixaban 5 Mg Tablet PO 5 mg BID GALLO Administration Ascorbic Acid 1,000 mg 05/17/21 09:00 05/18/21 08:46 Ascorbic Acid 500 Mg Tablet PO 1,000 mg DAILY GALLO Administration Atorvastatin Calcium 60 mg 05/17/21 21:00 05/17/21 20:50 Atorvastatin Calcium 20 Mg Tablet PO 60 mg BEDTIME GALLO Administration Carvedilol 6.25 mg 05/17/21 09:00 05/18/21 08:46 Carvedilol 6.25 Mg Tablet PO 6.25 mg BID GALLO Administration Protocol Furosemide 80 mg 05/17/21 08:00 05/18/21 08:47 Furosemide 40 Mg/4 Ml Vial IVPUSH 80 mg BIDWM GALLO Administration Protocol Gabapentin 600 mg 05/17/21 09:00 05/18/21 08:47 Gabapentin 600 Mg Tablet PO 600 mg BID GALLO Administration Levothyroxine Sodium 25 mcg 05/17/21 09:00 05/18/21 08:46 Levothyroxine Sodium 25 Mcg Tablet PO 25 mcg DAILY GALLO Administration Magnesium Hydroxide 30 ml 05/17/21 05:12 Milk Of Magnesia 30 Ml Oral.Susp PO DAILY PRN Constipation Magnesium Oxide 400 mg 05/17/21 08:30 05/18/21 08:46 Magnesium Oxide 400 Mg Tablet PO 400 mg BIDPC GALLO Administration Morphine Sulfate 2 mg 05/17/21 10:54 05/17/21 20:50 Morphine Sulfate 2 Mg/Ml Cartridge IVPUSH 2 mg Q4H PRN Administration Shortness of Breath Nitroglycerin 0.4 mg 05/17/21 05:12 Nitroglycerin 0.4 Mg Tab.Subl SUBLINGUAL Q5M PRN Chest Pain Oxycodone HCl 15 mg 05/17/21 08:01 05/18/21 08:46 Oxycodone Hcl Immed Release 15 Mg Tablet PO 15 mg Q8H PRN Administration pain Sodium Chloride 3 ml 05/17/21 08:00 05/18/21 08:45 0.9 % Sodium Chloride Flush 3 Ml Syringe IVFLUSH 3 ml QSHIFT GALLO Administration Time Spent With Patient Time: Total time spent is greater than 50% in coordination of care (as documented) at patient's floor/unit and/or counseling patient: Time with patient: 15 - 24 minutes Progress Note: Quality Stroke Does the patient have a stroke diagnosis?: No Procedures Date of Service Date of Service: 05/18/21
[2021-05-18] MEDS: Morphine Sulfate 2 MG/ML CARTRIDGE IVPUSH (12:07)
--- NOTE | 2021-05-18 12:13 | MHC.CM.PN ---
Male 76 DP the Patient will be going home today with [facility]. His family is providing transportation to home. [facility] has been updated thru [employer].
--- NOTE | 2021-05-18 13:15 | P.DS_ITS ---
DS: Providers Provider Date of Service: 05/18/21 Date of admission: 05/17/21 05:12 Primary care physician: Wilder Murphy MD Consults: 05/17/21 05:12 Consult to Cardiology Routine Consulting Provider: Sivakumar Mcbride Reason for consultation: CHF; high troponin 05/17/21 05:17 Consult to Nephrology Routine Consulting Provider: Jun Pearson Reason for consultation: YASH on CKD DS: Diagnosis Discharge Diagnosis (1) CHF exacerbation: Status: Acute (2) Acute respiratory failure with hypoxia: Status: Acute (3) ILD (interstitial lung disease): Status: Acute Problem details: Significant interstitial changes along with the hemoptysis. Now off the Amiodarone. Consider smoldering infection, or a non infectious inflammatory process. (4) Chronic combined systolic and diastolic CHF (congestive heart failure): Status: Acute DS: Medications Discharge Medications Home Medications: Home Medications Medication Instructions Recorded Confirmed ascorbic acid (vitamin C) [Vitamin 1,000 mg PO DAILY 11/20/20 05/17/21 C] magnesium 500 mg PO BID 11/20/20 05/17/21 albuterol sulfate 90 mcg/actuation 1 puff INHALATION Q4-6H 12/08/20 05/17/21 aerosol inhaler cholecalciferol (vitamin D3) 50 mcg PO DAILY 05/17/21 05/17/21 Previous Rx's Medication Instructions Recorded fluticasone propion-salmeterol 1 inh INHALATION BID #1 ea 11/23/20 [AirDuo RespiClick] nebulizers #1 ea 12/21/20 naloxone 4 mg/actuation nasal spray 4 mg INTRANASAL Q2M #2 ea 05/13/21 Eliquis 5 mg PO BID #180 tab 05/18/21 Entresto 1 tab PO BID #180 tab NS 05/18/21 albuterol sulfate 2.5 mg INHALATION QID PRN #180 ml 05/18/21 atorvastatin 60 mg PO BEDTIME #30 tab 05/18/21 carvedilol 6.25 mg PO BID #60 tab 05/18/21 gabapentin 600 mg PO BEDTIME #30 tab 05/18/21 ipratropium-albuterol 3 ml INHALATION BID-QID 30 Days 05/18/21 #180 ml levothyroxine 25 mcg PO DAILY #90 tab 05/18/21 lorazepam [Ativan] 0.5 mg PO TID PRN #30 tab 05/18/21 morphine concentrate 5 mg PO Q6H PRN #240 ml 05/18/21 torsemide 10 mg PO DAILY #30 tab 05/18/21 DS: Summary Hospital Course Hospital Course: Patient was admitted for acute hypoxic respiratory failure secondary to acute on chronic systolic CHF in the setting of of chronic interstitial lung disease and COPD. Patient was treated with IV Lasix. His respiratory status improved somewhat, but he states that he has chronic respiratory distress and he is tired of coming back and forth to the hospital. Discussions were had regarding end of life care and patient decided he would like to increase the quality of his life by remaining at home is meds possible. Hospice was consulted and decision made to transition to hospice at home. Time Spent with Patient Time attestation: Total time spent providing and/or coordinating discharge services: Discharge coordination time: Greater than 30 minutes Quality: Stroke Does the patient have a stroke diagnosis?: No Physical Exam Vital Signs: Vital Signs: Last Vital Signs Temp 98.2 F 05/18/21 07:17 Pulse 76 05/18/21 11:17 Resp 18 05/18/21 11:17 BP 106/58 L 05/18/21 11:17 Pulse Ox 100 05/18/21 11:17 Body Mass Index 26.9 General: letharigc O X 3, ill appearing Resp: Crackles CVS: S1,S2,RRR GI: soft, non tender, non distended Neuro: motor grossly intact Psych: appropriate affect DS: Data Data Completed and Pending Completed studies during hospitalization [Text1]: Procedures Assistance with Respiratory Ventilation, Less than 24 Consecutive Hours, Continuous Positive Airway Pressure (11/20/20) Labs on day of discharge: Laboratory Results - last 24 hr 05/18/21 05/18/21 05:20 05:20 WBC 12.8 H RBC 3.93 L Hgb 8.8 L Hct 29.4 L D MCV 74.8 L MCH 22.4 L MCHC 29.9 L RDW 17.3 H Plt Count 104 L D MPV 9.9 Immature Gran % (Auto) 0.5 H Neut % (Auto) 87.0 H Lymph % (Auto) 6.7 L [place] % (Auto) 5.7 Eos % (Auto) 0.0 Baso % (Auto) 0.1 Lymph # (Auto) 0.9 L [place] # (Auto) 0.7 Eos # (Auto) 0.0 Baso # (Auto) 0.0 Abs Immat Gran (auto) 0.07 H Absolute Neuts (auto) 11.1 H Absolute Nucleated RBC 0.000 Nucleated RBC % (auto) 0.0 Sodium 141 Potassium 4.9 Chloride 104 Carbon Dioxide 28 Anion Gap 14 BUN 44 H Creatinine 2.03 H Estim Creat Clear Calc 34.0 Estimated GFR 32 Random Glucose 135 H Calcium 8.8 Preliminary micro results at discharge 05/16/21 23:57 Blood Culture - Preliminary Blood - Venous No growth after 24 hours. 05/16/21 23:57 Blood Culture - Preliminary Blood - Venous No growth after 24 hours. Discharge Plan Discharge Patient Disposition: Hospice - Home Discharge Diagnosis: chf Referrals: Wilder Murphy MD [Primary Care Provider] - 1 Week Discharge Medications: New morphine concentrate 100 mg/5 mL (20 mg/mL) solution 5 mg PO Q6H PRN (Reason: dyspnea) Qty: 240 RF: 0 lorazepam [Ativan] 0.5 mg tablet 0.5 mg PO TID PRN (Reason: anxiety) Qty: 30 RF: 0 Continued albuterol sulfate 2.5 mg /3 mL (0.083 %) solution for nebulization 2.5 mg inhalation QID PRN (Reason: wheezing) Qty: 180 RF: 0 ascorbic acid (vitamin C) [Vitamin C] 1,000 mg Tablet 1,000 mg PO DAILY RF: 0 magnesium 500 mg Tablet 500 mg PO BID RF: 0 fluticasone propion-salmeterol [AirDuo RespiClick] 113-14 mcg/actuation aerosol powdr breath activated 1 inh inhalation BID Qty: 1 RF: 0 cholecalciferol (vitamin D3) 25 mcg (1,000 unit) Tablet 50 mcg PO DAILY RF: 0 carvedilol 6.25 mg Tablet 6.25 mg PO BID Qty: 60 RF: 0 ipratropium-albuterol 0.5 mg-3 mg(2.5 mg base)/3 mL solution for nebulization 3 ml inhalation BID-QID 30 Days Qty: 180 RF: 2 torsemide 20 mg Tablet 10 mg PO DAILY Qty: 30 RF: 0 levothyroxine 25 mcg tablet 25 mcg PO DAILY Qty: 90 RF: 0 Eliquis 5 mg tablet 5 mg PO BID Qty: 180 RF: 1 Entresto 24-26 mg tablet 1 tab PO BID Qty: 180 RF: 1 (DME) nebulizers Misc See Rx Instructions .ROUTE .MEDSUPPLY Qty: 1 RF: 0 albuterol sulfate 90 mcg/actuation HFA aerosol inhaler 1 puff inhalation Q4-6H RF: 0 Narcan 4 mg/actuation spray,non-aerosol 4 mg intranasal Q2M Qty: 2 RF: 0 Changed atorvastatin 40 mg tablet 60 mg PO BEDTIME Qty: 30 RF: 0 gabapentin 600 mg tablet 600 mg PO BEDTIME Qty: 30 RF: 0 Discontinued oxycodone 15 mg tablet 15 mg PO Q8H PRN (Reason: pain) 30 Days Qty: 90 RF: 0 Discharge Orders: Discharge Order (Routine); Ordered 05/18/21 Ordered By: Jl Fuentes Diet: advance to usual diet Activity on Discharge: As tolerated Stand Alone Forms: Patient Portal Discharge page Care Plan Goals: quality of life Health Concerns: chf, copd Plan of Treatment: hospice Assessment: see above
--- NOTE | 2021-05-18 14:54 | PC.NURSE ---
Skin Assessment completed today. No opened areas found. Small scabbed area on left dorsal foot.
== END 2021-05-18 15:40 | disposition hospice, home (50) | DRG 291 ==
LOC: HO.ED 05-17 05:40 → HO.EDOVER 05-17 05:50 → HO.IMC 05-17 11:06
PROVIDERS: Admitting Provider Hospitalist; Emergency Provider Student in an Organized Health Care Education/Training Program; PCP Internal Medicine; Visit Provider Internal Medicine
DX: I13.0 Hypertensive heart and chronic kidney disease with heart failure and stage 1 through stage 4 chronic kidney disease, or unspecified chronic kidney disease (principal); J96.01 Acute respiratory failure with hypoxia; I50.23 Acute on chronic systolic (congestive) heart failure; N17.9 Acute kidney failure, unspecified; R04.2 Hemoptysis; J84.9 Interstitial pulmonary disease, unspecified; I42.9 Cardiomyopathy, unspecified; I48.0 Paroxysmal atrial fibrillation; I25.10 Atherosclerotic heart disease of native coronary artery without angina pectoris; N18.9 Chronic kidney disease, unspecified; E78.5 Hyperlipidemia, unspecified; Z86.711 Personal history of pulmonary embolism; Z20.822 Contact with and (suspected) exposure to COVID-19; Z95.810 Presence of automatic (implantable) cardiac defibrillator; Z79.01 Long term (current) use of anticoagulants; Z79.890 Hormone replacement therapy; Z79.899 Other long term (current) drug therapy; Z66 Do not resuscitate
CPT/HCPCS: 36415; 71045; 80048; 80053; 81001; 83605; 83880; 84484; 85025; 85610; 87040; 87635; 93005; 94640; 94660; 99285; J1940; J2060; J2270